=== PATIENT | female | born 1945 | race Caucasian/White ===

== ENCOUNTER 2017-04-23 10:30 | Inpatient (IN) ==
[2017-04-23] MEDS ORDERED: SODIUM CHLORIDE 0.9% 500 ML IV STA ×2 (11:09→12:40)
--- NOTE | 2017-04-23 11:43 | CT Report ---
Referring physician: Bobby Fletcher Exam: CT brain without contrast Date: 04/23/2017 Comparison: 10/16/2016 Reason: Alteration of consciousness Technique: Axial images of the head were obtained without the use of contrast. Total DLP was 1103.60 mGy*cm. Findings: No hydrocephalus or midline shift is present. There is no evidence of an acute infarction, recent intracranial hemorrhage or abnormal mass effect. Diffuse atrophy and cerebral hypodensities with persistent prominent subarachnoid spaces. Empty sella. The osseous structures appear intact. The mastoid air cells and visualized paranasal sinuses are clear. Impression: No acute intracranial abnormality is identified. Diffuse atrophy and microvascular disease with empty sella. The CT exam was performed using one or more of the following dose reduction techniques: Automated exposure control and adjustment of the mA and/or kV according to patient size. PROCEDURE INTERPRETED AT [facility] DEPARTMENT OF RADIOLOGY Final Report Signed by: Dr. Kerri Barbosa
[2017-04-23 11:45] LABS: Basophils # 0.1 10*3/uL (0.0-0.2); Basophils % 1.2 % (0.0-0.8); Eosinophils # 0.2 10*3/uL (0.0-0.87); Eosinophils % 2.8 % (0.00-10.9); Hematocrit 33.5 VOL% (35.7-47.0); Immature Granulocytes % 0.5 %; Immature Granulocytes Absolute 0.04 #; Lymphocytes # 1.4 10*3/uL (1.4-4.0); Mean Corpuscular HGB Conc 32.8 GM/DL (32-36); Mean Corpuscular Hemoglobin 33 PG (27-34); Mean Corpuscular Volume 100.3 FL (87-102); Mean Platelet Volume 10.5 FL (9.6-12.0); Monocytes # 1.2 10*3/uL (0.11-0.8); Monocytes % 16.3 % (1.7-12.7); NRBC # 0.02 10*3/uL; Neutrophils # 4.5 10*3/uL (1.4-7.4); Neutrophils % 60.2 % (38.7-73.9); Red Blood Count 3.34 MC/CUMM (3.8-5.5); Red Cell Distribution Width 22.6 % (9.3-17.3); White Blood Count 7.5 T/CUMM (4-12)
[2017-04-23 11:49] LABS: Platelet Count 93 T/CUMM (130-400)
--- NOTE | 2017-04-23 11:54 | XRay Report ---
Portable chest Date: 04/23/2017 Clinical history: Alteration of consciousness Comparison: 10/18/2016 Technique: Portable AP sitting chest Findings: The heart is smaller in size with uncoiling the aorta. Right arm PICC line with tip in SVC. Reduced parenchymal findings in the lungs with localized eventration of the right hemidiaphragm. Unremarkable mediastinum with degenerative changes. Impression: The heart is smaller in size with resolved CHF. Right arm PICC line in satisfactory position. Localized eventration of the right hemidiaphragm. PROCEDURE INTERPRETED AT [facility] DEPARTMENT OF RADIOLOGY Final Report Signed by: Dr. Kerri Barbosa
[2017-04-23 12:07] LABS: Eosinophils 7 % (0-10); Hypochromasia 1+; Lymphocytes 18 % (20-55); Macrocytosis 1+; Platelet Estimate Decreased; Segmented Neutrophils 62 % (50-85); Total Cells Counted 100
[2017-04-23 12:22] LABS: Alanine Aminotransferase 16 U/L (13-56); Albumin 1.6 G/DL (3.4-5.0); Alkaline Phosphatase 151 U/L (45-117); Apearance,Urine CLOUDY (Clear); Aspartate Amino Transferase 39 U/L (0-37); Bilirubin,Urine Negative (Negative); Blood Urea Nitrogen 37 MG/DL (7-18); Blood, Urine Small mg/dL (Negative); Calcium 9.3 MG/DL (8.5-10.1); Glucose 125 MG/DL (74-106); Glucose,Urine (UA) Negative (Negative); Ketones,Urine Negative (Negative); Magnesium 2.5 MG/DL (1.8-2.4); Nitrite,Urine Negative (Negative); Osmolality,Calculated 284.7 MOS/KG (273-304); Potassium 3.8 MMOL/L (3.5-5.1); Protein,Urine 30 MG/DL; RBC,Urine 6 /HPF (0-4); Sodium 138 MMOL/L (136-145); Squamous Epithelial Cell,Urine Occasional /HPF (0-10); Total Protein 7.6 G/DL (6.4-8.3); Troponin I Only < 0.015 NG/ML (0.00-0.045); Urine Color Yellow (Yellow); Urine Specific Gravity 1.008 (1.001-1.035); Urine Urobilinogen < 2.0 EU/DL (0.2-1.0); WBC,Urine 301 /HPF (0-6)
--- NOTE | 2017-04-23 12:51 | Emergency Department Note ---
Yvon Spencer Manpreet, am scribing for, and in the presence of, Bobby Fletcher MD 11:24. Justine Spencer Phillip K, MD, personally performed the services described in this documentation, ascribed by Josh Sanz in my presence, and it is both accurate and complete . Arrival - Arrival Chief Complaint: Blood Pressure Stated Complaint: HYPOTENSION ED Nursing Triage Note: PT BROUGHT BY EMS FOR EVALUATION OF HYPOTENSION. PT WAS RECENTLY DISCHARGED FROM [facility] AFTER BEING TREATED FOR SEPSIS. PT IS CURRENTLY ON CEFEPIME 2G VIA PICC LINE AT HOME. PT WAS SEPTIC FROM WOUNDS ON BACK/BUTTOCK/ AND LEFT LOWER LEG. PT IS AAO AT TRIAGE. Mode of Arrival: Stretcher Limitations: No Limitations Source: Family Time Seen by Provider: 04/23/17 10:51 - History of Present Illness HPI Narrative: Pt is a 71 y/o female who is brought to the ED via EMS for CC of hypotension. Pt was discharged from [facility] for sepsis three weeks ago where she stayed two weeks for sepsis. Pt was discharged with IV antibiotics for infection on her lower left leg. Pt has been lethargic with a cough but no fever according to the family. Pt is AAOx4 during the physical exam and does not complain of any specific pain. No other pains/complaints reported to the ED. she had been receiving cefepime every 8 hours through a PICC line since discharge from [place] 3 weeks ago. Onset (ago): day(s) (Since 04/19/17) Consistency: constant Severity: moderate Severity scale (1-10): 3 Allergies/Adverse Reactions: Allergies Allergy/AdvReac Type Severity Reaction Status Date / Time Penicillins Allergy HIVES Verified 04/23/17 10:46 sulfamethoxazole Allergy Vomiting Verified 04/23/17 10:46 [From Bactrim] trimethoprim [From Bactrim] Allergy Vomiting Verified 04/23/17 10:46 Home Medications: Home Medications Medication Instructions Recorded Confirmed Type Allopurinol 300 mg PO DAILY 04/23/16 04/23/17 History Budesonide/Formoterol 160-4.5 2 puff INH DAILY PRN 04/23/16 04/23/17 History [Symbicort 160-4.5] Potassium Chloride 20 meq PO DAILY 10/11/16 04/23/17 History Albuterol Sulfate [Ventolin HFA] 2 puff INH Q4H PRN 10/14/16 04/23/17 History Montelukast Tab [Singulair Tab] 10 mg PO BEDTIME tablet 10/17/16 04/23/17 Rx Pantoprazole Tab [Protonix Tab] 40 mg PO DAILY tablet 10/17/16 04/23/17 Rx Metoprolol Tartrate Tab [Lopressor 0.5 mg PO BID 12/23/16 04/23/17 History Tab] Spironolactone [Aldactone] 50 mg PO DAILY 12/23/16 04/23/17 History Albuterol Neb [Proventil Neb] 2.5 mg RESP TX RT Q4H PRN 04/23/17 04/23/17 History Apixaban [Eliquis] 5 mg PO BID 04/23/17 04/23/17 History Cefepime in Iso-Osm Dextrose 2 gm IV BID 04/23/17 04/23/17 History [Cefepime 2 gm Injection] Ciprofloxacin HCl [Ciprofloxacin 500 mg PO BID 04/23/17 04/23/17 History Tab] Diltiazem Cd Cap [Cardizem CD] 120 mg PO QAM 04/23/17 04/23/17 History Furosemide Tab [Lasix Tab] 40 mg PO DAILY 04/23/17 04/23/17 History Insulin Glargine [Lantus] 10 unit SUBCUT QAM 04/23/17 04/23/17 History Insulin Glargine [Lantus] 50 unit SUBCUT BEDTIME 04/23/17 04/23/17 History Lactobacillus Combo No.6 1 each PO DAILY 04/23/17 04/23/17 History [Probiotic Complex] Levothyroxine Tab [Synthroid Tab] 75 mcg PO DAILY 04/23/17 04/23/17 History Zinc Oxide 20% Oint 1 applic TOP QID 04/23/17 04/23/17 History Review of System - Review of System 12 point system: reviewed and no additional remarkable complaints except as stated - Review of System Constitutional: Present: weakness, other (Hypotention). Absent: chills, fever Head/Ears/Nose/Throat: Absent: nasal drainage, sore throat Respiratory: Present: cough. Absent: respiratory distress Cardiovascular: Absent: chest pain, dyspnea on exertion Gastrointestinal: Absent: abdominal pain, nausea, vomiting Musculoskeletal: Absent: back pain, leg pain Neurological: Absent: headache Medical,Surgical,& Family Hx - Medical History Cardio: History of: Cardiac Dysrhythmia (A-FIB) HEENT: History of: Eye Problem (GLASSES), Dental Problems (upper partial) Endocrine: History of: Diabetes Mellitus (IDDM), Thyroid Disorder Rheumatology: History of;: Rheumatoid Arthritis Respiratory: History of: Asthma Gastrointestinal: History of: Hepatitis (C), Liver Problems (CIRRHOSIS) - Surgical History Abdominal Surgeries: Surgical HX of: Cholecystectomy, Hernia Repair - Family History Family History: Reports;: Family Diabetes, Family Heart Disease, Family Hypertension - Social History Smoking Status: Never smoker Frequency of Alcohol Use: None Type of Drug Use: None Exam Vital Signs: Vital Signs Temperature 97.9 F 04/23/17 10:31 Pulse Rate 96 H 04/23/17 10:31 Respiratory Rate 18 04/23/17 10:31 Blood Pressure 82/50 04/23/17 10:31 O2 Sat by Pulse Oximetry 98 04/23/17 10:31 - General General appearance: alert - Head Head exam: Present: atraumatic, normocephalic, normal inspection - Eye Eye exam: Present: normal appearance, PERRL, EOMI - ENT ENT exam: Present: normal exam, normal oropharynx, mucous membranes dry, TM's normal bilaterally - Neck Neck exam: Present: normal inspection, full ROM, trachea midline. Absent: tenderness, thyromegaly - Chest Chest inspection: Present: normal inspection, symmetric chest wall rise. Absent : tenderness - Respiratory Respiratory exam: Present: normal lung sounds bilaterally. Absent: accessory muscle use, respiratory distress, wheezes - Cardiovascular Cardiovascular exam: Present: regular rate, normal rhythm, normal heart sounds. Absent: murmur, rubs, gallop - Abdominal Exam Abdominal exam: Present: soft, other (Ventral hernia) - Extremities Exam Extremities exam: Present: other ([place] that popped on lateral aspect with hemorrhage present). Absent: normal inspection - Back Exam Back exam: Present: normal inspection, full ROM. Absent: tenderness - Neurological Exam Neurological exam: Present: alert, oriented X3, CN II-XII intact, reflexes normal - Psychiatric Psychiatric exam: Present: normal affect, normal mood - Skin Skin exam: Present: warm, dry, intact, normal color. Absent: pallor Course Course Narrative: Patient's urinalysis shows bacteria or white blood cells in clumps. We will give her a fluid bolus to see if that will improve her blood pressure. Her white blood count is normal she is afebrile. According to family members she has had low blood pressure over the last several weeks. Ammonia and lactic acid level is pending. Patient discussed with the hospitalist who will admit for IV antibiotics. We will also consult infectious disease. Results - Labs CBC & BMP: 04/23/17 11:27 04/23/17 11:27 Lab Results: I have reviewed the patients labs Labs: Laboratory Tests 04/23/17 11:27 WBC 7.5 RBC 3.34 L Hgb 11.0 L Hct 33.5 L MCV 100.3 MCH 33 MCHC 32.8 RDW 22.6 H Plt Count 93 L MPV 10.5 Neut % (Auto) 60.2 Lymph % (Auto) 19.0 L Gosper % (Auto) 16.3 H Baso % (Auto) 1.2 H Gosper # (Auto) 1.2 H Laboratory Tests 04/23/17 11:27 Total Counted 100 Segmented Neutrophils 62 Lymphocytes 18 L Monocytes 13 Eosinophils 7 Platelet Estimate Decreased Hypochromasia 1+ Macrocytosis 1+ Laboratory Tests 04/23/17 04/23/17 04/23/17 11:27 11:27 11:27 Total Counted 100 Segmented Neutrophils 62 Lymphocytes 18 L Monocytes 13 Eosinophils 7 Platelet Estimate Decreased Hypochromasia 1+ Macrocytosis 1+ Sodium 138 Potassium 3.8 Chloride 112 H Carbon Dioxide 19 L Anion Gap 10.8 BUN 37 H Creatinine 1.40 H GFR Calculation 49 BUN/Creatinine Ratio 26.00 H Glucose 125 H Calculated Osmolality 284.7 Calcium 9.3 Magnesium 2.5 H Total Bilirubin 1.20 H AST 39 H ALT 16 Alkaline Phosphatase 151 H Troponin I < 0.015 Total Protein 7.6 Albumin 1.6 L Globulin 6.0 H Albumin/Globulin Ratio 0.2 L Urine pH 5.0 Ur Specific [place] 1.008 Urine Protein 30 Urine Glucose (UA) Negative Urine Ketones Negative Urine Nitrate Negative Urine Bilirubin Negative Urine Urobilinogen < 2.0 H Urine Leukocytes Large H Urine RBC 6 Urine WBC 301 - EKG EKG results: interpreted by AGUSTIN (Atrial fibrillation) - Diagnostic Findings Procedure: CT: report reviewed by me (CT Head/Brain w/o con: No acute intracranial abnormality is identified. Diffuse atrophy and microvascular disease with empty sella.), X-ray: report reviewed by me (The heart is smaller in size with resolved CHF. Right arm PICC line in satisfactory position. Localized eventration of the right hemidiaphragm.) Disposition Clinical Impression: Urinary tract infection, Hypotension, History of discitis, History of psoas muscle abscess, Venous stasis ulcer left leg Case discussed with: patient, patient's family Disposition: Still a Patient Condition: Guarded Additional Instructions: Admit to the hospitalist.
--- NOTE | 2017-04-23 13:05 | EKG Report ---
Stationary ECG Study [facility] ER Test Date: 04/23/2017 1:04:01 PM Pat Name: ZANA CASTRO Department: Room: Gender: F [employer]: : 1945 Requested by: Bobby Morse Order Number: [id number] Reading MD: DEAN PAYNE Intervals [place] Rate: 92 P: 999 OR: 0 QRS: 123 QRSD: 71 T: 93 QT: 352 QTc: 401 Interpretive Statements ATRIAL FIBRILLATION POSSIBLE RIGHT VENTRICULAR HYPERTROPHY SEPTAL MYOCARDIAL INFARCTION, PROBABLY OLD Electronically Signed On 04-23-17 20:12:48 CDT by DEAN PAYNE [email or web address]
[2017-04-23 13:17] LABS: Ammonia 52 UMOL/L (11-32)
--- NOTE | 2017-04-23 14:14 | Hospitalist History & Physical ---
<Lanre Chen - Last Filed: 04/23/17 14:36> Assessment and Plan (1) Severe sepsis Status: Acute Assessment and plan: The sepsis bundle has been initiated. The patient clearly meets the sepsis criteria. WBCs are noted at 7.5 and lactic acid at 2.1. In addition, urinalysis significant for UTI. The patient was grossly hypotensive, presented altered, and has an acute kidney injury with the BUN noted at 37 and creatinine at 1.40. We will provide supportive care. Current Visit: Yes (2) Hepatic encephalopathy Status: Acute Assessment and plan: The patient has known hepatic dysfunction. The patient was previously diagnosed with liver cirrhosis and hepatitis C virus. Ammonia level at the time of presentation was noted 52. We will start lactulose and recheck ammonia level in a.m. Current Visit: Yes (3) Hypotension Status: Acute Assessment and plan: At the time of ED presentation the patient was noted to be grossly hypotensive with a systolic blood pressure noted in the 70s. This is largely attributed to the overwhelming infectious process. The patient was given multiple fluid boluses in the ED with minimal response. The patient's blood pressure is now noted in the 80s. We will aggressively rehydrate and order pressors as needed. Current Visit: Yes (4) Urinary tract infection Status: Acute Assessment and plan: Urine cultures have been obtained. We will start empiric antibiotic coverage and await culture and sensitivity report. Current Visit: Yes History of Present Illness Chief complaint: Hypotension and lethargy History of present illness: This is a very pleasant 71-year-old female that presented to the ED at [facility] this morning for the evaluation of hypotension and lethargy. The patient has a very complex medical history significant for asthma , atrial fibrillation, insulin-dependent diabetes mellitus, hypothyroidism, spinal abscess rheumatoid arthritis, asthma, hepatitis C, and liver cirrhosis the patient has a surgical history significant for cholecystectomy and hernia repair. The patient had a previous encounter at [facility] on last month for symptoms similar in nature. During that encounter, the patient was found to have a abscess on spine. The patient was subsequently transferred to the [facility] for further neurosurgery evaluation. The patient was subsequently discharged from [facility] 3 days prior to presentation The patient was discharged with PICC line and intravenous antibiotic therapy. The family noticed that the patient had a decrease in her level of consciousness. They report that the patient had been largely lethargic for the past couple of days. In addition, the patient was noted to have a nonproductive cough. They became alarmed and notified EMS for assistance. The patient was subsequently transported to [facility] for further evaluation. The patient was assessed at the time of ED presentation. The patient was noted to be grossly hypotensive with a systolic blood pressure noted in the 70s. Aggressive intravenous fluids were initiated and the patient's blood pressure responded minimally. Labs were obtained which were essentially remarkable for hemoglobin of 11.0, hematocrit 33.5, platelet count at 93, chloride 112, carbon dioxide 19, troponin at less than 0.015 BUN 37, creatinine 1.40, and glucose at 125. In addition AST was noted at 39, ALT 16, alkaline phosphatase 151, magnesium 2.5, and ammonia at 5.2. Urinalysis was significant for a small amount of blood, urobilinogen less than 2.0, urine leukocytes are large, urine with blood cell count 6, urine white blood cell count 301, moderate amount of white blood cell clumps were noted and occasional squamous epithelial cells were noted. Chest x-ray was essentially unremarkable for any acute cardiopulmonary process. CT head was unremarkable for any acute intracranial processes however, diffuse atrophy and microvascular disease with empty sella was noted. After brief discussion with both Dr. Fletcher and Dr. Moy, the patient will be admitted to the hospitalist service for continuation of care. Due to the profound hypotension, the patient will be placed in the critical care setting. Home medications have been reviewed and reconciled. CODE STATUS discussed; patient is a FULL CODE. The patient meets the sepsis criteria. We will initiate the sepsis. Home Medications Medication Instructions Recorded Confirmed Type Allopurinol 300 mg PO DAILY 04/23/16 04/23/17 History Budesonide/Formoterol 160-4.5 2 puff INH DAILY PRN 04/23/16 04/23/17 History [Symbicort 160-4.5] Potassium Chloride 20 meq PO DAILY 10/11/16 04/23/17 History Albuterol Sulfate [Ventolin HFA] 2 puff INH Q4H PRN 10/14/16 04/23/17 History Montelukast Tab [Singulair Tab] 10 mg PO BEDTIME tablet 10/17/16 04/23/17 Rx Pantoprazole Tab [Protonix Tab] 40 mg PO DAILY tablet 10/17/16 04/23/17 Rx Metoprolol Tartrate Tab [Lopressor 0.5 mg PO BID 12/23/16 04/23/17 History Tab] Spironolactone [Aldactone] 50 mg PO DAILY 12/23/16 04/23/17 History Albuterol Neb [Proventil Neb] 2.5 mg RESP TX RT Q4H PRN 04/23/17 04/23/17 History Apixaban [Eliquis] 5 mg PO BID 04/23/17 04/23/17 History Cefepime in Iso-Osm Dextrose 2 gm IV BID 04/23/17 04/23/17 History [Cefepime 2 gm Injection] Ciprofloxacin HCl [Ciprofloxacin 500 mg PO BID 04/23/17 04/23/17 History Tab] Diltiazem Cd Cap [Cardizem CD] 120 mg PO QAM 04/23/17 04/23/17 History Furosemide Tab [Lasix Tab] 40 mg PO DAILY 04/23/17 04/23/17 History Insulin Glargine [Lantus] 10 unit SUBCUT QAM 04/23/17 04/23/17 History Insulin Glargine [Lantus] 50 unit SUBCUT BEDTIME 04/23/17 04/23/17 History Lactobacillus Combo No.6 1 each PO DAILY 04/23/17 04/23/17 History [Probiotic Complex] Levothyroxine Tab [Synthroid Tab] 75 mcg PO DAILY 04/23/17 04/23/17 History Zinc Oxide 20% Oint 1 applic TOP QID 04/23/17 04/23/17 History Allergies Allergy/AdvReac Type Severity Reaction Status Date / Time Penicillins Allergy HIVES Verified 04/23/17 10:46 sulfamethoxazole Allergy Vomiting Verified 04/23/17 10:46 [From Bactrim] trimethoprim [From Bactrim] Allergy Vomiting Verified 04/23/17 10:46 Medical,Surgical,& Family Hx - Medical History Cardio: History of: Cardiac Dysrhythmia (A-FIB) HEENT: History of: Eye Problem (GLASSES), Dental Problems (upper partial) Endocrine: History of: Diabetes Mellitus (IDDM), Thyroid Disorder Rheumatology: History of;: Rheumatoid Arthritis Respiratory: History of: Asthma Gastrointestinal: History of: Hepatitis (C), Liver Problems (CIRRHOSIS) - Surgical History Abdominal Surgeries: Surgical HX of: Cholecystectomy, Hernia Repair - Family History Family History: Reports;: Family Diabetes, Family Heart Disease, Family Hypertension - Social History Smoking Status: Never smoker Frequency of Alcohol Use: None Type of Drug Use: None Exam - Constitutional Vitals: Period Temp Pulse Resp BP Sys/Eagle Pulse Ox Last 24 Hr 97.9 F-97.9 F 78-96 16-18 79-87/45-58 98-100 General appearance: no acute distress, under weight - Head Head exam: Present: normal inspection - Eye Eye exam: Present: EOMI. Absent: conjunctival injection Pupils: Present: YON, normal accommodation - ENT ENT exam: Present: normal exam, normal external ear exam, normal oropharynx - Neck Neck exam: Present: normal inspection. Absent: lymphadenopathy, meningismus, thyromegaly - Respiratory Respiratory exam: Present: clear to auscultation bilaterally. Absent: rales, rhonchi, stridor, wheezes - Cardiovascular Cardiovascular exam: Present: regular rate and rhythm, tachycardia. Absent: carotid bruit, diastolic murmur, gallop, JVD, rubs, systolic murmur - GI/Abdominal GI/Abdominal exam: Present: normal bowel sounds, soft - Extremities Exam Extremities exam: Present: other (Ulceration noted to the left lower leg) - Neurological Exam Neurological exam: Present: alert, altered - Psychiatric Psychiatric exam: Present: normal affect, normal mood - Skin Skin exam: Present: normal color, warm, dry Results - Labs CBC & BMP: 04/23/17 11:27 04/23/17 11:27 Lab Results: I have reviewed the past 24 hour labs Sepsis - Sepsis Classification of Sepsis: Severe Sepsis - Physical Exam Physical Exam: The patient clearly meets the sepsis criteria. At the time of ED presentation, white blood cell count was noted at 7.5 and lactic acid at 2.1. In addition, the patient was grossly hypotensive with a blood systolic blood pressure noted in the 70s. Urinalysis was essentially significant for urinary tract infection. The patient was clearly altered with an ammonia level noted at 52, total bilirubin at 1.20, AST at 39, ALT 16, and alkaline phosphatase at 151. - Physical Exam Respiratory exam: clear to auscultation bilaterally Peripheral pulses: Radial (L): 2+, Radial (R): 2+, Dorsalis Pedis (L) PM: 2+, Dorsalis Pedis (R) PM: 2+, Posterior Tibialis (L): 2+, Posterior Tibialis (R): 2 + Cardiovascular exam: bradycardia Skin exam: normal color <MoyJarvis - Last Filed: 04/23/17 15:00> History of Present Illness History of present illness: Ms. Miller is a 71 year old female who is being hospitalized with urinary tract infection, sepsis with shock, and hepatic insufficiency. I have interviewed the patient, examined the patient, and reviewed all the available laboratory tests and x-ray results. Agree with the assessment and plans as described by the nurse practitioner. Exam - Constitutional Vitals: Period Temp Pulse Resp BP Sys/Eagle Pulse Ox Last 24 Hr 97.9 F-97.9 F 78-97 16-18 76-87/44-58 98-100 Results - Labs CBC & BMP: 04/23/17 11:27 04/23/17 11:27
[2017-04-23] MEDS ORDERED: SODIUM CHLORIDE 0.9% 3,750 ML IV ONE (14:37)
[2017-04-23] MEDS ORDERED: DEXTROSE 50% 25 GM/50 ML SYRINGE IV PRN (14:45)
[2017-04-23] MEDS ORDERED: GLUCAGON 1 MG VIAL IM PRN (14:45)
[2017-04-23] MEDS ORDERED: LEVOFLOXACIN INJ 500 MG in PREMIX 1 EACH IV SCH (15:00)
[2017-04-23] MEDS: LACTULOSE 20 GM/30 ML UDCUP PO SCH ×2 (16:00→22:48)
--- NOTE | 2017-04-23 16:09 | General Surgery Consult Note ---
Assessment and Plan - Time spent with patient Time spent with patient: Greater than 30 minutes (1) Chronic anticoagulation Status: Acute Current Visit: Yes (2) Venous stasis ulcer Status: Acute Assessment and plan: 71-year-old white female with history of asthma, A. fib on chronic anticoagulation, diabetes, hypothyroidism, RA, hepatitis C, liver cirrhosis, and spinal abscess admitted by the hospitalist today with sepsis due to UTI. Patient does have a PICC line and has been getting cefepime 3 times daily for a recent spinal abscess treated at [facility]. Dr. Kern has been consulted to assist with this. Levaquin was started for her UTI but in her hospital records cultures in March for her urine were resistant to Cipro and Levaquin. So DC'd the Levaquin and restarted her cefepime which should work for UTI as well as her spinal abscess. Patient is also having difficulty swallowing so will consult Dr. Whittaker in the morning for evaluation for dysphagia. Patient does have a small venous stasis wound on her left lower extremity that is clean and without signs of infection. There is no indication for surgery. Will get Isadora MONTEMAYOR to evaluate and patient can follow-up with Dr. Kumar Loyola in the wound center upon discharge. Dr. Longo will see and examine patient and further recommendations to follow. Current Visit: Yes (3) History of spinal abscess Status: Acute Current Visit: Yes (4) Atrial fibrillation Status: Acute Current Visit: No (5) Urinary tract infection Status: Acute Current Visit: Yes (6) Hypotension Status: Acute Current Visit: Yes (7) Severe sepsis Status: Acute Current Visit: Yes History of Present Illness Chief complaint: Confusion History of present illness: Ms. Miller is a 71 year old white female with history of A. fib on Eliquis, COPD, diabetes, and questionable spinal abscess admitted by the hospitalist service on 04/23/2017 with altered mental status due to urinary tract infection. Patient is afebrile but she is found to be hypotensive and failed her ED fluid challenge. She is in the ICU placed on sepsis protocol. Patient states she had just been recently discharged from [facility] under the care of a neurosurgeon with a spinal abscess. Patient states they did a biopsy of the bone and there was infection in her bone. She has been on cefepime 2G TID for 3 weeks now. She states she became weak and confused and she was brought to the ED for further evaluation. Patient's only complaint right now is chills. She denies headache, chest pain, shortness of breath, abdominal pain, constipation or diarrhea, or lower extremity edema. Patient states she has had some difficulty swallowing for the last few weeks. It has made it difficult to eat. Patient follows Dr. Kumar Loyola in the wound center for lower extremity venous wounds. Upon exam she has a small 2 cm diameter open venous wound on the lateral lower leg. There is no signs of infection and no drainage. The rest of the legs have healed up nicely. Dr. Longo has been consulted to evaluate. Home Medications Medication Instructions Recorded Confirmed Type Allopurinol 300 mg PO DAILY 04/23/16 04/23/17 History Potassium Chloride 20 meq PO DAILY 10/11/16 04/23/17 History Montelukast Tab [Singulair Tab] 10 mg PO BEDTIME tablet 10/17/16 04/23/17 Rx Pantoprazole Tab [Protonix Tab] 40 mg PO DAILY tablet 10/17/16 04/23/17 Rx Metoprolol Tartrate Tab [Lopressor 0.5 tablet PO BID 12/23/16 04/23/17 History Tab] Spironolactone [Aldactone] 50 mg PO DAILY 12/23/16 04/23/17 History Apixaban [Eliquis] 5 mg PO BID 04/23/17 04/23/17 History Cefepime in Iso-Osm Dextrose 2 gm IV TID 04/23/17 04/23/17 History [Cefepime 2 gm Injection] Diltiazem Cd Cap [Cardizem CD] 120 mg PO QAM 04/23/17 04/23/17 History Furosemide Tab [Lasix Tab] 40 mg PO BID 04/23/17 04/23/17 History Insulin Glargine [Lantus] 10 unit SUBCUT QAM 04/23/17 04/23/17 History Insulin Glargine [Lantus] 50 unit SUBCUT BEDTIME 04/23/17 04/23/17 History Lactobacillus Combo No.6 1 each PO DAILY 04/23/17 04/23/17 History [Probiotic Complex] Levothyroxine Tab [Synthroid Tab] 75 mcg PO DAILY 04/23/17 04/23/17 History Allergies Allergy/AdvReac Type Severity Reaction Status Date / Time Penicillins Allergy HIVES Verified 04/23/17 10:46 sulfamethoxazole Allergy Vomiting Verified 04/23/17 10:46 [From Bactrim] trimethoprim [From Bactrim] Allergy Vomiting Verified 04/23/17 10:46 Medical,Surgical,& Family Hx - Medical History Cardio: History of: Cardiac Dysrhythmia (A-FIB) HEENT: History of: Eye Problem (GLASSES), Dental Problems (upper partial) Endocrine: History of: Diabetes Mellitus (IDDM), Thyroid Disorder Rheumatology: History of;: Rheumatoid Arthritis Respiratory: History of: Asthma Renal: History of: Renal Problems (renal insufficiency, sees Dr Damon) Gastrointestinal: History of: Hepatitis (C), Liver Problems (CIRRHOSIS) Musculoskeletal: History of: Musculoskeletal Problems ("bad knees") Hematology: History of: Anemia - Surgical History Abdominal Surgeries: Surgical HX of: Cholecystectomy, Hernia Repair Reproductive Surgeries: Surgical HX of;: Hysterectomy - Family History Family History: Reports;: Family Diabetes, Family Heart Disease, Family Hypertension - Social History Smoking Status: Never smoker Frequency of Alcohol Use: None Type of Drug Use: None Review of systems: A complete 10 system review of systems was obtained and pertinent positives and negatives per HPI Exam - Constitutional Vitals: Period Temp Pulse Resp BP Sys/Eagle Pulse Ox Last 24 Hr 97.9 F-97.9 F 78-97 16-18 76-87/44-58 98-100 Exam: 71-year-old white female, no acute distress, alert and oriented Chest clear CV irregularly irregular Abdomen soft, nontender, obese Extremities with no edema, well-healed bilateral lower extremity venous ulcers, one small 2 cm diameter open wound on the lateral lower leg, no induration, purulence, no cellulitis Results - Labs CBC & BMP: 04/23/17 11:27 04/23/17 11:27 Lab Results: I have reviewed the past 24 hour labs - EKG EKG shows: atrial fibrillation - Diagnostic Findings Procedure: Chest x-ray: report reviewed by me (Resolved CHF, right arm PICC in satisfactory position), CT: report reviewed by me (CT the head shows no acute intracranial abnormality. Diffuse atrophy and microvascular disease)
[2017-04-23] MEDS: SODIUM CHLORIDE 0.9% 1,000 ML IV SCH (16:13)
--- NOTE | 2017-04-23 16:25 | Infectious Disease Consult ---
History of Present Illness Chief complaint: Sepsis History of present illness: Ms. Miller is a 71 year old female with multiple comorbid including chronic liver disease due to hepatitis C apparently. She was recently in [facility] because of a paraspinal abscess and was sent home 3 days ago on IV cefepime 2 g every 8 hours. Apparently she been sent to [facility] from this institution in March and in looking through the records she had positive blood cultures for Pseudomonas in March so presumably the spinal infection is due to the same Pseudomonas. The patient was found confused by her family and so she was brought to the hospital. She was found to be severely hypotensive with systolic blood pressure in the 70s and so admitted to ICU for further management. Per nurse patient's family says a systolic has been in the 70s and 80s since she has been at home. No fever reported. Impression: 1. Hypotensive shock, could be septic versus hypoperfusion related to her liver disease 2. Renal insufficiency, acute versus acute on chronic 3. Paraspinal abscess, records not available for me to confirm location 4. Liver disease 5. Chronic venous insufficiency with chronic ulcers to left leg which are clinically not infected Recommendations: 1. Give 1 dose of vancomycin 1 g IV 2. Continue cefepime as patient was getting at home. She is on levofloxacin but I am not sure how much benefit this will be as the Pseudomonas was resistant to this, but will leave for now 3. Follow-up results of cultures are pending 4. Obtain records from [facility] 5. Depending on cultures and renal function will decide whether or not to repeat dosing of vancomycin Thank you very much for the consult. Will follow. Home Medications Medication Instructions Recorded Confirmed Type Allopurinol 300 mg PO DAILY 04/23/16 04/23/17 History Potassium Chloride 20 meq PO DAILY 10/11/16 04/23/17 History Montelukast Tab [Singulair Tab] 10 mg PO BEDTIME tablet 10/17/16 04/23/17 Rx Pantoprazole Tab [Protonix Tab] 40 mg PO DAILY tablet 10/17/16 04/23/17 Rx Metoprolol Tartrate Tab [Lopressor 0.5 tablet PO BID 12/23/16 04/23/17 History Tab] Spironolactone [Aldactone] 50 mg PO DAILY 12/23/16 04/23/17 History Apixaban [Eliquis] 5 mg PO BID 04/23/17 04/23/17 History Cefepime in Iso-Osm Dextrose 2 gm IV TID 04/23/17 04/23/17 History [Cefepime 2 gm Injection] Diltiazem Cd Cap [Cardizem CD] 120 mg PO QAM 04/23/17 04/23/17 History Furosemide Tab [Lasix Tab] 40 mg PO BID 04/23/17 04/23/17 History Insulin Glargine [Lantus] 10 unit SUBCUT QAM 04/23/17 04/23/17 History Insulin Glargine [Lantus] 50 unit SUBCUT BEDTIME 04/23/17 04/23/17 History Lactobacillus Combo No.6 1 each PO DAILY 04/23/17 04/23/17 History [Probiotic Complex] Levothyroxine Tab [Synthroid Tab] 75 mcg PO DAILY 04/23/17 04/23/17 History Allergies Allergy/AdvReac Type Severity Reaction Status Date / Time Penicillins Allergy HIVES Verified 04/23/17 10:46 sulfamethoxazole Allergy Vomiting Verified 04/23/17 10:46 [From Bactrim] trimethoprim [From Bactrim] Allergy Vomiting Verified 04/23/17 10:46 ROS unobtainable: due to mental status Medical,Surgical,& Family Hx - Medical History Cardio: History of: Cardiac Dysrhythmia (A-FIB) HEENT: History of: Eye Problem (GLASSES), Dental Problems (upper partial) Endocrine: History of: Diabetes Mellitus (IDDM), Thyroid Disorder Rheumatology: History of;: Rheumatoid Arthritis Respiratory: History of: Asthma Renal: History of: Renal Problems (renal insufficiency, sees Dr Damon) Gastrointestinal: History of: Hepatitis (C), Liver Problems (CIRRHOSIS) Musculoskeletal: History of: Musculoskeletal Problems ("bad knees") Hematology: History of: Anemia - Surgical History Abdominal Surgeries: Surgical HX of: Cholecystectomy, Hernia Repair Reproductive Surgeries: Surgical HX of;: Hysterectomy - Family History Family History: Reports;: Family Diabetes, Family Heart Disease, Family Hypertension - Social History Smoking Status: Never smoker Frequency of Alcohol Use: None Type of Drug Use: None Infectious Disease Exam H&P - Constitutional Vitals: Vital Signs Temp Pulse Resp BP Pulse Ox 97.9 F 87 18 77/49 100 04/23/17 10:31 04/23/17 14:10 04/23/17 14:10 04/23/17 14:10 04/23/17 14:10 Intake and Output 04/23/17 04/23/17 04/23/17 07:59 15:59 23:59 Intake Total 1250 / 1250 Balance 1250 / 1250 Intake: IV 1000 / 1000 Ns 500 ml @ 999 mls/hr IV 1000 / 1000 1X ED BOLUS STA Rx#: [id number] Intake - Additional IV 250 / 250 Volume (mLs) Right Upper Arm 250 / 250 Other: Weight 87.345 kg Patient Weight 04/23/17 23:59 Weight 87.345 kg Exam: General: Patient chronically ill looking, drowsy but arousable HEENT: Mucous membranes pale, anicteric acyanotic, YON, no oral exudates, mouth dry Neck: Supple, no thyroid gland enlargement, no lymphadenopathy Respiratory system: Breath sounds vesicular, no crepitations or wheezes Cardiovascular: Normal S1 and S2, no murmurs appreciated Abdomen: Normal bowel sounds, soft nontender throughout, no organomegaly or mass Genitourinary: No suprapubic pain or bladder distention, clear urine from Bonilla catheter Extremities: Chronic bilateral lower extremity edema with hyperpigmentation of the skin and one bottle appearance of the left leg edema Skin: 2 shallow ulcers to the left lateral leg distally with clean granulating bases no purulent drainage no surrounding erythema or induration Reports - Labs CBC & BMP: 04/23/17 11:27 04/23/17 11:27 Labs: Laboratory Results - last 24 hr 04/23/17 04/23/17 04/23/17 11:27 11:27 11:27 WBC 7.5 RBC 3.34 L Hgb 11.0 L Hct 33.5 L MCV 100.3 MCH 33 MCHC 32.8 RDW 22.6 H Plt Count 93 L MPV 10.5 Neut % (Auto) 60.2 Lymph % (Auto) 19.0 L [place] % (Auto) 16.3 H Eos % (Auto) 2.8 Baso % (Auto) 1.2 H Neut # (Auto) 4.5 Lymph # (Auto) 1.4 [place] # (Auto) 1.2 H Eos # (Auto) 0.2 Baso # (Auto) 0.1 Total Counted 100 Immature Gran % 0.5 Nucleated RBC % 0.3 Immature Gran # 0.04 Segmented Neutrophils 62 Lymphocytes 18 L Monocytes 13 Eosinophils 7 Nucleated RBCs # 0.02 Platelet Estimate Decreased Immature Plt Fraction 0.0 Hypochromasia 1+ Macrocytosis 1+ Morphology Comment Sodium 138 Potassium 3.8 Chloride 112 H Carbon Dioxide 19 L Anion Gap 10.8 BUN 37 H Creatinine 1.40 H GFR Calculation 49 BUN/Creatinine Ratio 26.00 H Glucose 125 H Hemoglobin A1c Calculated Osmolality 284.7 Lactic Acid Calcium 9.3 Magnesium 2.5 H Total Bilirubin 1.20 H AST 39 H ALT 16 Alkaline Phosphatase 151 H Ammonia 52 H Troponin I < 0.015 Total Protein 7.6 Albumin 1.6 L Globulin 6.0 H Albumin/Globulin Ratio 0.2 L Urine Color Yellow Urine Appearance Cloudy Urine pH 5.0 Ur Specific [place] 1.008 Urine Protein 30 Urine Glucose (UA) Negative Urine Ketones Negative Urine Blood Small Urine Nitrate Negative Urine Bilirubin Negative Urine Urobilinogen < 2.0 H Urine Leukocytes Large H Urine RBC 6 Urine WBC 301 Urine WBC Clumps Moderate Ur Squamous Epith Cells Occasional Ur Culture Indicated? Results to follow 04/23/17 04/23/17 04/23/17 11:27 11:27 14:49 WBC RBC Hgb Hct MCV MCH MCHC RDW Plt Count MPV Neut % (Auto) Lymph % (Auto) [place] % (Auto) Eos % (Auto) Baso % (Auto) Neut # (Auto) Lymph # (Auto) [place] # (Auto) Eos # (Auto) Baso # (Auto) Total Counted Immature Gran % Nucleated RBC % Immature Gran # Segmented Neutrophils Lymphocytes Monocytes Eosinophils Nucleated RBCs # Platelet Estimate Immature Plt Fraction Hypochromasia Macrocytosis Morphology Comment Sodium Potassium Chloride Carbon Dioxide Anion Gap BUN Creatinine GFR Calculation BUN/Creatinine Ratio Glucose Hemoglobin A1c 4.7 Calculated Osmolality Lactic Acid 2.1 H 2.1 H Calcium Magnesium Total Bilirubin AST ALT Alkaline Phosphatase Ammonia Troponin I Total Protein Albumin Globulin Albumin/Globulin Ratio Urine Color Urine Appearance Urine pH Ur Specific [place] Urine Protein Urine Glucose (UA) Urine Ketones Urine Blood Urine Nitrate Urine Bilirubin Urine Urobilinogen Urine Leukocytes Urine RBC Urine WBC Urine WBC Clumps Ur Squamous Epith Cells Ur Culture Indicated? - Diagnostic Findings Procedure: Chest x-ray: image reviewed by me, report reviewed by me (No infiltrates or effusions)
[2017-04-23] MEDS ORDERED: VANCOMYCIN INJ 1,000 MG in SODIUM CHLORIDE 0.9% 250 ML IV ONE (17:00)
[2017-04-23] MEDS: NOREPINEPHRINE 8 MG in SODIUM CHLORIDE 0.9% 242 ML IV SCH (17:23)
[2017-04-23] MEDS: INSULIN REGULAR 100 UNIT/ML SUBCUT SCH ×2 (17:28→22:36)
--- NOTE | 2017-04-23 19:46 | ECHO Report ---
Suzi Miller Exam Date: 04/23/2017 14:56 Referring Physician: Technologist: ivon Frank ARDMS, RVT Age: 71 Ht (in): 63 Wt (lb): 276 Gender: F Exam Location: [facility] [place] Echo Indications: Atrial fibrillation, Hypotension, Severe sepsis, Hepatic encephalopathy, UTI BP: 77 / 49 HR: 83 Rhythm: Sinus Technical Quality: Fair IMPRESSIONS 1. The left ventricle is normal size and systolic function ejection fraction 60%. 2. Other cardiac chambers are normal size. 3. There appears to be some slight intraventricular septal flattening. 4. Aortic valve to try constructed but sclerotic but functionally normal without any Doppler abnormalities. 5. Moderate to severe tricuspid valve regurgitation. 6. Mild elevated right-sided pressures at worst. MEASUREMENTS (Male / Female) Normal Values 2D ECHO LV Diastolic Diameter PLAX 3.4 cm 4.2 - 5.9 / 3.9 - 5.3 cm LV Systolic Diameter PLAX 1.9 cm LV Fractional Shortening PLAX 43.8 % IVS Diastolic Thickness 0.7 cm 0.6 - 1.0 / 0.6 - 0.9 cm LVPW Diastolic Thickness 0.8 cm 0.6 - 1.0 / 0.6 - 0.9 cm RV Internal Dim ED PLAX 3.2 cm Aortic Root Diameter 3.0 cm LA Systolic Diameter LX 3.4 cm 3.0 - 4.0 / 2.7 - 3.8 cm DOPPLER TR Peak Velocity 274.0 cm/s TR Peak Gradient 30.0 mmHg FINDINGS Left Ventricle Normal left ventricular cavity size. Normal left ventricular wall thickness. Left ventricular ejection fraction is estimated at 60 %. Right Ventricle The right ventricle is normal in size and function. Right Atrium The right atrium is normal in size. Left Atrium The left atrium is normal in size. Mitral Valve Morphologically normal mitral valve without significant stenosis or prolapse. There is no mitral regurgitation. Aortic Valve Aortic valve is atretic obstructed with sclerosing especially the noncoronary cusp but is without stenosis. There is no aortic regurgitation. Tricuspid Valve Morphologically normal tricuspid valve. Moderate to severe tricuspid valve regurgitation. Tricuspid regurgitation velocities suggest a PAP of 40 mmHg. Pulmonic Valve Morphologically normal pulmonic valve without significant stenosis. There is no pulmonic regurgitation. Pericardium Normal pericardium without effusion. Aorta Normal ascending aorta dimension. Cam Strong MD (Electronically Signed) Final Date: 23 April 2017 19:44
[2017-04-23] MEDS ORDERED: CEFEPIME IN ISO OSM DEXTROSE IV SCH (21:00)
[2017-04-23] MEDS ORDERED: [UNRECOGNIZED DRUG - OTHER] IV SCH (21:00)
[2017-04-23] MEDS: CEFEPIME 2,000 MG in SODIUM CHLORIDE 0.9% 100 ML IV SCH (22:48)
[2017-04-24] MEDS: SODIUM CHLORIDE 0.9% 1,000 ML IV SCH ×4 (00:50→20:30)
[2017-04-24 03:27] LABS: ABG Base Excess -14.1 MMOL/L (-2.5-2.5); ABG HCO3 13.7 MMOL/L (20-26); ABG Oxygen Saturation 98.9 % (95-100); ABG PCO2 28.6 MM HG (35-48); ABG PH 7.239 (7.35-7.45); ABG TCO2 11.1 MMOL/L (23-27); Allen Test Positive
[2017-04-24] MEDS: LACTULOSE 20 GM/30 ML UDCUP PO SCH ×4 (04:26→21:51)
[2017-04-24] MEDS: CEFEPIME 2,000 MG in SODIUM CHLORIDE 0.9% 100 ML IV SCH ×3 (04:27→21:51)
[2017-04-24 04:33] LABS: Calcium 8.2 MG/DL (8.5-10.1); Magnesium 2.3 MG/DL (1.8-2.4)
[2017-04-24 04:34] LABS: Osmolality,Calculated 291.1 MOS/KG (273-304); Potassium 4.2 MMOL/L (3.5-5.1)
[2017-04-24 07:46] LABS: Basophils # 0.1 10*3/uL (0.0-0.2); Basophils % 1.1 % (0.0-0.8); Eosinophils # 0.2 10*3/uL (0.0-0.87); Eosinophils % 1.9 % (0.00-10.9); Hematocrit 36.8 VOL% (35.7-47.0); Hemoglobin 11.8 GM/DL (12.0-16.0); Immature Granulocytes % 1.1 %; Immature Granulocytes Absolute 0.12 #; Lymphocytes # 1.3 10*3/uL (1.4-4.0); Lymphocytes % 11.8 % (21.3-54.2); Mean Corpuscular HGB Conc 32.1 GM/DL (32-36); Mean Corpuscular Hemoglobin 33 PG (27-34); Mean Corpuscular Volume 103.4 FL (87-102); Mean Platelet Volume 9.8 FL (9.6-12.0); Monocytes # 1.6 10*3/uL (0.11-0.8); Monocytes % 14.6 % (1.7-12.7); NRBC # 0.02 10*3/uL; Neutrophils # 7.6 10*3/uL (1.4-7.4); Neutrophils % 69.5 % (38.7-73.9); Platelet Count 121 T/CUMM (130-400); Red Blood Count 3.56 MC/CUMM (3.8-5.5); Red Cell Distribution Width 22.8 % (9.3-17.3); White Blood Count 10.9 T/CUMM (4-12)
--- NOTE | 2017-04-24 07:47 | Hospitalist Progress Note ---
Assessment and Plan (1) Urinary tract infection Status: Acute Assessment and plan: She was diagnosed on admission with a urinary tract infection. It was the impression of infectious diseases that the most likely organism was Pseudomonas due to previous cultures during her previous hospitalization demonstrating Pseudomonas infection. She has been continued on intravenous cefepime as per infectious diseases. Current Visit: Yes (2) Severe sepsis Status: Acute Assessment and plan: She has severe sepsis with shock. She is requiring intravenous norepinephrine in addition to fluid resuscitation for management of her shock. She continues on intravenous cefepime and vancomycin as per ID. Current Visit: Yes (3) Venous stasis ulcer Status: Acute Assessment and plan: Her venous stasis ulcers do not appear to be actively infected at the present time. Current Visit: Yes (4) History of spinal abscess Status: Acute Current Visit: Yes (5) Renal insufficiency Status: Acute Assessment and plan: It is not clear if she has acute versus acute on chronic renal insufficiency. She is being treated with intravenous normal saline. I will follow her renal function closely. Current Visit: Yes Hospitalist: Subjective Interval history: Ms. Miller is a 71 year old female with multiple comorbid including chronic liver disease due to hepatitis C apparently. She was recently in [facility] because of a paraspinal abscess and was sent home 3 days ago on IV cefepime 2 g every 8 hours. Apparently she been sent to [facility] from this institution in March and in looking through the records she had positive blood cultures for Pseudomonas in March so presumably the spinal infection is due to the same Pseudomonas. The patient was found confused by her family and so she was brought to the hospital. She was found to be severely hypotensive with systolic blood pressure in the 70s and so admitted to ICU for further management. She was seen in consultation yesterday by infectious diseases who recommended treatment at the present time with intravenous cefepime and vancomycin. An echocardiogram was performed demonstrating no evidence of bacterial endocarditis , normal left ventricular systolic function with LVEF 60%, and moderate to severe tricuspid insufficiency. I will continue her on the antibiotics as recommended by infectious diseases. I await further recommendations from ID. Exam - Constitutional Vitals: Period Temp Pulse Resp BP Sys/Eagle Pulse Ox Last 24 Hr 97.9 F-99.3 F 75-112 11-20 60-114/30-88 97-100 General appearance: no acute distress - Head Head exam: Present: normal inspection - Neck Neck exam: Present: normal inspection - Respiratory Respiratory exam: Present: clear to auscultation bilaterally - Cardiovascular Cardiovascular exam: Present: regular rate and rhythm - GI/Abdominal GI/Abdominal exam: Present: normal bowel sounds, soft, other - Extremities Exam Extremities exam: Present: normal inspection - Neurological Exam Neurological exam: Present: alert, oriented X3 - Skin Skin exam: Present: normal color, warm, intact Results - Labs CBC & BMP: 04/23/17 11:27 04/24/17 03:05
[2017-04-24 08:05] LABS: Hypochromasia 1+; Macrocytosis 1+
[2017-04-24 08:06] LABS: Platelet Estimate Adequate
[2017-04-24] MEDS: INSULIN REGULAR 100 UNIT/ML SUBCUT SCH ×4 (08:15→21:51)
[2017-04-24 08:57] LABS: Albumin 1.5 G/DL (3.4-5.0); Bilirubin,Total 1.3 MG/DL (0.2-1.0); Calcium 7.8 MG/DL (8.5-10.1); Osmolality,Calculated 292.1 MOS/KG (273-304); Potassium 4.1 MMOL/L (3.5-5.1)
[2017-04-24] MEDS: ALBUTEROL/IPRATROPIUM 3 ML NEB RESP TX SCH ×3 (09:14→19:36)
--- NOTE | 2017-04-24 11:42 | Gastrointestinal Consult Note ---
<Anna Luong - Last Filed: 04/24/17 11:34> Assessment and Plan (1) Dysphagia Status: Acute Assessment and plan: 04/24-Reports on yesterday of "food sticking" with meals. No reports of this today however pt noted to be lethargic. No known history of EGD in the past. On Eliquis prior to admission, currently on hold. Plan and addendum to follow by Dr Lozoya Current Visit: Yes History of Present Illness Chief complaint: Dysphagia History of present illness: Ms. Miller is a 71 year old female who was admitted to the hospital on yesterday with report of changes in mental status and low blood pressure. She has a prior history of asthma, atrial fibrillation on Eliqu, diabetes and hypothyroidism. Patient is unable to provide any historical information at this time due to lethargy therefore information is obtained from chart review. Patient was admitted on yesterday after family noticed that she had a decrease in her level of consciousness. She reportedly had become more lethargic over the couple of days prior to that and he developed a nonproductive cough. Family called an ambulance and she is brought to the emergency room for further evaluation. Upon arrival she was found to be hypotensive and was fluid resuscitated with minimal response from her blood pressure. She was then placed in ICU and had pressor support initiated. Patient has a prior history of liver disease from hepatitis C. She also reportedly has a recent history of paraspinal abscess which was treated at [facility] and she was discharged several days ago on IV antibiotics for this. On admission, she had a CT of her head which was unremarkable. She was found to have no leukocytosis with WBCs at 10,000. LFTs on admission noted at 1.3 bilirubin, AST 47, and alkaline phosphatase at 151. On yesterday, patiently reported that she has had increased difficulty in swallowing and feels like food is getting stuck in her throat. Because patient is very lethargic during my visit, she was unable to relate this to me and denies at this time having problem swallowing. Nursing staff at bedside states she was able to swallow her liquids and pills without difficulty. Pt has no prior history in our facility database for endoscopy in the past however she had appt in December of this year but no records that the EGD was done. She has been followed by Dr Lozoya for her cirrhosis. Home Medications Medication Instructions Recorded Confirmed Type Allopurinol 300 mg PO DAILY 04/23/16 04/23/17 History Potassium Chloride 20 meq PO DAILY 10/11/16 04/23/17 History Montelukast Tab [Singulair Tab] 10 mg PO BEDTIME tablet 10/17/16 04/23/17 Rx Pantoprazole Tab [Protonix Tab] 40 mg PO DAILY tablet 10/17/16 04/23/17 Rx Metoprolol Tartrate Tab [Lopressor 0.5 tablet PO BID 12/23/16 04/23/17 History Tab] Spironolactone [Aldactone] 50 mg PO DAILY 12/23/16 04/23/17 History Apixaban [Eliquis] 5 mg PO BID 04/23/17 04/23/17 History Cefepime in Iso-Osm Dextrose 2 gm IV TID 04/23/17 04/23/17 History [Cefepime 2 gm Injection] Diltiazem Cd Cap [Cardizem CD] 120 mg PO QAM 04/23/17 04/23/17 History Furosemide Tab [Lasix Tab] 40 mg PO BID 04/23/17 04/23/17 History Insulin Glargine [Lantus] 10 unit SUBCUT QAM 04/23/17 04/23/17 History Insulin Glargine [Lantus] 50 unit SUBCUT BEDTIME 04/23/17 04/23/17 History Lactobacillus Combo No.6 1 each PO DAILY 04/23/17 04/23/17 History [Probiotic Complex] Levothyroxine Tab [Synthroid Tab] 75 mcg PO DAILY 04/23/17 04/23/17 History Allergies Allergy/AdvReac Type Severity Reaction Status Date / Time Penicillins Allergy HIVES Verified 04/23/17 10:46 sulfamethoxazole Allergy Vomiting Verified 04/23/17 10:46 [From Bactrim] trimethoprim [From Bactrim] Allergy Vomiting Verified 04/23/17 10:46 Medical,Surgical,& Family Hx - Medical History Cardio: History of: Cardiac Dysrhythmia (A-FIB) HEENT: History of: Eye Problem (GLASSES), Dental Problems (upper partial) Endocrine: History of: Diabetes Mellitus (IDDM), Thyroid Disorder Rheumatology: History of;: Rheumatoid Arthritis Respiratory: History of: Asthma Renal: History of: Renal Problems (renal insufficiency, sees Dr Damon) Gastrointestinal: History of: Hepatitis (C), Liver Problems (CIRRHOSIS) Musculoskeletal: History of: Musculoskeletal Problems ("bad knees") Hematology: History of: Anemia - Surgical History Abdominal Surgeries: Surgical HX of: Cholecystectomy, Hernia Repair Reproductive Surgeries: Surgical HX of;: Hysterectomy - Family History Family History: Reports;: Family Diabetes, Family Heart Disease, Family Hypertension - Social History Smoking Status: Never smoker Frequency of Alcohol Use: None Type of Drug Use: None ROS unobtainable: due to mental status Exam - Constitutional Vitals: Period Temp Pulse Resp BP Sys/Eagle Pulse Ox Last 24 Hr 97.9 F-99.3 F 75-122 11- 60-114/30- 97-100 General appearance: normal weight, no acute distress - Head Head exam: Present: normal inspection, normocephalic - Eye Eye exam: Present: other (lids and conjunctiva unremarkable). Absent: scleral icterus - ENT ENT exam: Present: normal exam, normal oropharynx - Neck Neck exam: Present: normal inspection - Respiratory Respiratory exam: Present: clear to auscultation bilaterally. Absent: rales, rhonchi, wheezes - Cardiovascular Cardiovascular exam: Present: regular rate and rhythm. Absent: diastolic murmur , JVD, systolic murmur - GI/Abdominal GI/Abdominal exam: Present: normal bowel sounds, soft. Absent: ascites, distended, mass, organomegaly, tenderness - Extremities Exam Extremities exam: Present: normal inspection, full ROM - Back Exam Back exam: Present: normal inspection - Neurological Exam Neurological exam: Present: alert, altered - Psychiatric Psychiatric exam: Present: normal affect, other - Skin Skin exam: Present: normal color, warm, dry Results - Labs CBC & BMP: 04/24/17 07:24 04/24/17 07:24 Lab Results: I have reviewed the past 24 hour labs <Vel Lozoya - Last Filed: 04/24/17 14:20> History of Present Illness History of present illness: Ms. Miller is a 71 year old female Exam - Constitutional Vitals: Period Temp Pulse Resp BP Sys/Eagle Pulse Ox Last 24 Hr 97.4 F-99.3 F 75-122 - 60-114/30-88 96-100 Results - Labs CBC & BMP: 04/24/17 07:24 04/24/17 07:24
--- NOTE | 2017-04-24 11:58 | Infectious Disease Progress ---
Assessment and Plan (1) History of spinal abscess Status: Acute Assessment and plan: Most likely due to Pseudomonas which was isolated from her blood cultures last mth. Continue cefepime high dose. We still need to get records from [facility]. I would prefer double coverage with an A. glycoside but she was seen by ID at [facility]. (The Pseudomonas was resistant to quinolones). D/W family at bedside Current Visit: Yes (2) Hypotension Status: Acute Assessment and plan: Possibly due to septic shock, improved today. She is still on pressors and will continue antibiotics. Current Visit: Yes (3) Renal insufficiency Status: Acute Assessment and plan: Stable since yesterday, even after a dose of vancomycin. Current Visit: Yes (4) Severe sepsis Status: Acute Assessment and plan: have not identified specific new infection yet. I am going to consult pharmacy to redose vanc. Continue cefepime and levofloxacin for now. If blood cultures negative at day 3, will stop levofloxacin and vancomycin. Current Visit: Yes (5) Venous stasis ulcer Status: Acute Current Visit: Yes (6) Bacteremia Status: Acute Assessment and plan: Last mth had Pseudomonas septicemia. Rechecking blood cultures now to ensure no recurrence/relapse. Current Visit: No Infectious Disease - PN: Subj Interval history: Patient did not respond to IVF last pm so had to be started on pressors, however that is being weaned steadily today. No fever. She is more alert and interactive today. Infectious Disease Exam (PN) - Constitutional Vitals: Temp Pulse Resp BP Pulse Ox 98 F 113 H 24 97/52 96 04/24/17 08:00 04/24/17 11:00 04/24/17 11:00 04/24/17 11:45 04/24/17 11:00 General appearance: normal weight, no acute distress Exam: GEN: alert and interactive HEENT: pale mucosa, mouth dry RS; clear CVS: normal S1 and S2, no murmurs ABD: protuberant, non-tender EXTREMITIES: chronic venous stasis changes with pink shallow ulcer to lateral left leg Results - Labs CBC & BMP: 04/24/17 07:24 04/24/17 07:24 Lab Results: I have reviewed the past 24 hour labs
[2017-04-24] MEDS: GENTAMICIN 0.1% CREAM 15 GM TUBE TOP SCH (12:30)
[2017-04-24] MEDS: VANCOMYCIN INJ 1,250 MG in SODIUM CHLORIDE 0.9% 250 ML IV SCH (14:30)
[2017-04-24] MEDS: NOREPINEPHRINE 8 MG in SODIUM CHLORIDE 0.9% 242 ML IV SCH ×2 (15:00→21:00)
[2017-04-25] MEDS: ALBUTEROL/IPRATROPIUM 3 ML NEB RESP TX SCH ×4 (00:44→18:56)
[2017-04-25] MEDS: LACTULOSE 20 GM/30 ML UDCUP PO SCH ×5 (02:29→20:20)
[2017-04-25] MEDS: SODIUM CHLORIDE 0.9% 1,000 ML IV SCH ×4 (04:30→22:05)
[2017-04-25] MEDS ORDERED: DILTIAZEM 100 MG VIAL.ADD IV ONE (04:36)
[2017-04-25] MEDS ORDERED: DILTIAZEM 50 MG/10 ML VIAL IV ONE ×2 (04:37→04:38)
[2017-04-25] MEDS ORDERED: SODIUM CHLORIDE 0.9% 250 ML IV ONE (04:38)
[2017-04-25] MEDS: DILTIAZEM INJ 100 MG in SODIUM CHLORIDE 0.9% 100 ML IV SCH (05:03)
[2017-04-25] MEDS: CEFEPIME 2,000 MG in SODIUM CHLORIDE 0.9% 100 ML IV SCH ×3 (05:27→20:15)
[2017-04-25 06:25] LABS: Basophils # 0.1 10*3/uL (0.0-0.2); Basophils % 0.9 % (0.0-0.8); Eosinophils # 0.1 10*3/uL (0.0-0.87); Hematocrit 32.7 VOL% (35.7-47.0); Hemoglobin 10.2 GM/DL (12.0-16.0); Immature Granulocytes Absolute 0.07 #; Lymphocytes # 1.1 10*3/uL (1.4-4.0); Lymphocytes % 15.3 % (21.3-54.2); Mean Corpuscular HGB Conc 31.2 GM/DL (32-36); Mean Corpuscular Hemoglobin 33 PG (27-34); Mean Corpuscular Volume 105.1 FL (87-102); Mean Platelet Volume 9.2 FL (9.6-12.0); Monocytes # 1.2 10*3/uL (0.11-0.8); Monocytes % 16.7 % (1.7-12.7); Neutrophils # 4.4 10*3/uL (1.4-7.4); Neutrophils % 64.1 % (38.7-73.9); Red Blood Count 3.11 MC/CUMM (3.8-5.5); Red Cell Distribution Width 22.9 % (9.3-17.3); White Blood Count 6.9 T/CUMM (4-12)
[2017-04-25 06:29] LABS: Platelet Count 60 T/CUMM (130-400)
[2017-04-25 06:50] LABS: Band Neutrophils 1 % (0-10); Eosinophils 2 % (0-10); Hypochromasia 1+; Lymphocytes 9 % (20-55); Platelet Estimate Decreased; Segmented Neutrophils 74 % (50-85); Total Cells Counted 100
[2017-04-25 06:51] LABS: Macrocytosis Slight
[2017-04-25 06:53] LABS: Calcium 7.9 MG/DL (8.5-10.1); Potassium 3.3 MMOL/L (3.5-5.1)
[2017-04-25 07:07] LABS: Free T4 (Free Thyroxine) 1.38 NG/DL (0.76-1.46); Thyroid Stimulating Hormone 0.283 uIU/ml (0.358-3.74)
[2017-04-25] MEDS: INSULIN REGULAR 100 UNIT/ML SUBCUT SCH ×4 (07:30→20:31)
[2017-04-25] MEDS ORDERED: POTASSIUM CHLORIDE RIDER 10 MEQ in PREMIX 1 EACH IV PRN (07:48)
--- NOTE | 2017-04-25 07:53 | Hospitalist Progress Note ---
Assessment and Plan (1) Urinary tract infection Status: Acute Assessment and plan: She was diagnosed on admission with a urinary tract infection. It was the impression of infectious diseases that the most likely organism was Pseudomonas due to previous cultures during her previous hospitalization demonstrating Pseudomonas infection. She has been continued on intravenous cefepime and vancomycin as per infectious diseases. Current Visit: Yes (2) Severe sepsis Status: Acute Assessment and plan: She she continues on the above antibiotics for sepsis. Her shock has resolved. She no longer is requiring intravenous norepinephrine to maintain adequate blood pressure. Current Visit: Yes (3) Venous stasis ulcer Status: Acute Assessment and plan: Her venous stasis ulcers do not appear to be actively infected at the present time. She is unable to have RUPESH stockings because of the venous stasis ulcer. Venous thromboembolism prophylaxis will be provided by restarting her apixaban. Current Visit: Yes Qualifiers: Venous stasis ulcer site: calf (4) History of spinal abscess Status: Acute Assessment and plan: There is no evidence of recurrence of her paraspinal abscess. Current Visit: Yes (5) Renal insufficiency Status: Acute Assessment and plan: Her BUN and creatinine today are 29 and 1.0 respectively. Her acute renal failure has resolved with intravenous normal saline. Current Visit: Yes (6) Atrial fibrillation Status: Acute Assessment and plan: She is a previous history of atrial fibrillation that has been treated with apixaban, metoprolol, and diltiazem. She experienced last night atrial fibrillation with rapid ventricular response. Her heart rate was adequately controlled with intravenous diltiazem. I will restart her apixaban, metoprolol , and diltiazem today. She is being followed by cardiology. Current Visit: No Hospitalist: Subjective Interval history: She is comfortable today with no specific complaints. She is not experiencing chest pain, shortness of breath, or palpitations. 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 Most significant event occurring during the night was atrial fibrillation with rapid ventricular response. She has been successfully treated with intravenous diltiazem. She continues on intravenous cefepime and vancomycin, as managed by ID, for treatment of Pseudomonas urinary tract infection and sepsis. Her blood pressure is now 110/70, off of vasopressors. Exam - Constitutional Vitals: Period Temp Pulse Resp BP Sys/Eagle Pulse Ox Last 24 Hr 97.4 F-99.2 F 98-142 13-126 74-122/48-82 96-100 General appearance: no acute distress - Head Head exam: Present: normal inspection - Neck Neck exam: Present: normal inspection - Respiratory Respiratory exam: Present: clear to auscultation bilaterally - Cardiovascular Cardiovascular exam: Present: irregular rhythm, tachycardia - GI/Abdominal GI/Abdominal exam: Present: normal bowel sounds, soft, other (Nontender with no palpable masses or hepatosplenomegaly.) - Extremities Exam Extremities exam: Present: other (Ulcer of left heel.) - Neurological Exam Neurological exam: Present: alert, oriented X3 - Psychiatric Psychiatric exam: Present: normal affect, normal mood - Skin Skin exam: Present: normal color, warm, intact Results - Labs CBC & BMP: 04/25/17 06:06 04/25/17 06:07 Quality Measures - VTE Contraindication to Mechanical VTE Prophylaxis: Local Inflammation
[2017-04-25] MEDS: POTASSIUM CHLORIDE RIDER 20 MEQ in PREMIX 1 EACH IV PRN ×2 (08:25→09:20)
[2017-04-25] MEDS: INSULIN GLARGINE 100 UNIT/ML SUBCUT SCH ×2 (09:00→20:32)
[2017-04-25] MEDS: POTASSIUM CHLORIDE 20 MEQ TABLET PO SCH (09:20)
[2017-04-25] MEDS: LACTOBACILLUS ACIDOPHILUS/BULGARICUS CAPLET PO SCH (09:20)
[2017-04-25] MEDS: LEVOTHYROXINE 75 MCG TABLET PO SCH (09:20)
[2017-04-25] MEDS: APIXABAN 5 MG TABLET PO SCH ×2 (09:20→20:16)
[2017-04-25] MEDS: ALLOPURINOL 300 MG TABLET PO SCH (09:20)
[2017-04-25] MEDS: PANTOPRAZOLE 40 MG TABLET PO SCH (09:20)
[2017-04-25] MEDS: DILTIAZEM CD 120 MG CAPSULE PO SCH (09:20)
[2017-04-25] MEDS: METOPROLOL TARTRATE 25 MG TABLET PO SCH ×2 (09:20→20:17)
[2017-04-25] MEDS: FUROSEMIDE 40 MG TABLET PO SCH ×2 (09:20→20:16)
[2017-04-25] MEDS: SPIRONOLACTONE 50 MG TABLET PO SCH (09:20)
[2017-04-25] MEDS: GENTAMICIN 0.1% CREAM 15 GM TUBE TOP SCH (12:00)
[2017-04-25] MEDS: VANCOMYCIN INJ 1,250 MG in SODIUM CHLORIDE 0.9% 250 ML IV SCH (13:30)
[2017-04-25] MEDS: NOREPINEPHRINE 8 MG in SODIUM CHLORIDE 0.9% 242 ML IV SCH (15:00)
[2017-04-25] MEDS: FLUCONAZOLE 200 MG TABLET PO SCH (17:25)
[2017-04-25] MEDS: NYSTATIN CREAM 15 GM TUBE TOP SCH (20:15)
[2017-04-25] MEDS: MONTELUKAST 10 MG TABLET PO SCH (20:16)
[2017-04-26] MEDS: ALBUTEROL/IPRATROPIUM 3 ML NEB RESP TX SCH ×4 (00:56→19:51)
[2017-04-26] MEDS: LACTULOSE 20 GM/30 ML UDCUP PO SCH ×4 (03:10→21:14)
[2017-04-26] MEDS: DILTIAZEM INJ 100 MG in SODIUM CHLORIDE 0.9% 100 ML IV SCH (04:03)
[2017-04-26] MEDS: CEFEPIME 2,000 MG in SODIUM CHLORIDE 0.9% 100 ML IV SCH ×3 (04:03→21:12)
[2017-04-26 04:56] LABS: Basophils # 0.1 10*3/uL (0.0-0.2); Eosinophils # 0.3 10*3/uL (0.0-0.87); Eosinophils % 2.7 % (0.00-10.9); Hematocrit 35.3 VOL% (35.7-47.0); Hemoglobin 10.8 GM/DL (12.0-16.0); Immature Granulocytes % 1.3 %; Immature Granulocytes Absolute 0.13 #; Lymphocytes # 1.3 10*3/uL (1.4-4.0); Lymphocytes % 12.8 % (21.3-54.2); Mean Corpuscular HGB Conc 30.6 GM/DL (32-36); Mean Corpuscular Hemoglobin 33 PG (27-34); Mean Corpuscular Volume 108.6 FL (87-102); Mean Platelet Volume 10.4 FL (9.6-12.0); Monocytes # 1.7 10*3/uL (0.11-0.8); Monocytes % 16.6 % (1.7-12.7); NRBC # 0.02 10*3/uL; Neutrophils # 6.6 10*3/uL (1.4-7.4); Neutrophils % 65.6 % (38.7-73.9); Red Blood Count 3.25 MC/CUMM (3.8-5.5); Red Cell Distribution Width 23.2 % (9.3-17.3)
[2017-04-26 04:57] LABS: Platelet Count 66 T/CUMM (130-400)
[2017-04-26 05:42] LABS: Eosinophils 2 % (0-10); Lymphocytes 19 % (20-55); Segmented Neutrophils 70 % (50-85)
[2017-04-26 05:44] LABS: Anisocytosis Slight; Macrocytosis Slight; Platelet Estimate Decreased; Total Cells Counted 100
[2017-04-26] MEDS: SODIUM CHLORIDE 0.9% 1,000 ML IV SCH ×2 (06:20→10:51)
[2017-04-26] MEDS: INSULIN REGULAR 100 UNIT/ML SUBCUT SCH ×4 (08:15→21:13)
--- NOTE | 2017-04-26 08:27 | Hospitalist Progress Note ---
Assessment and Plan (1) Urinary tract infection Status: Acute Assessment and plan: She was diagnosed on admission with a urinary tract infection. It was the impression of infectious diseases that the most likely organism was Pseudomonas due to previous cultures during her previous hospitalization demonstrating Pseudomonas infection. She has been continued on intravenous cefepime and vancomycin as per infectious diseases. Current Visit: Yes (2) Severe sepsis Status: Acute Assessment and plan: She she continues on the above antibiotics for sepsis. Her shock has resolved. Current Visit: Yes (3) Venous stasis ulcer Status: Acute Assessment and plan: Her venous stasis ulcers do not appear to be actively infected at the present time. She is unable to have RUPESH stockings because of the venous stasis ulcer. Venous thromboembolism prophylaxis will be provided by restarting her apixaban. Current Visit: Yes Qualifiers: Venous stasis ulcer site: calf (4) History of spinal abscess Status: Acute Assessment and plan: There is no evidence of recurrence of her paraspinal abscess. Current Visit: Yes (5) Renal insufficiency Status: Acute Assessment and plan: Her BUN and creatinine today are 28 and 1.1 respectively. Her acute renal failure has resolved with intravenous normal saline. Current Visit: Yes (6) Atrial fibrillation Status: Acute Assessment and plan: She is a previous history of atrial fibrillation that has been treated with apixaban, metoprolol, and diltiazem. She experienced last night atrial fibrillation with rapid ventricular response. Her heart rate was adequately controlled with intravenous diltiazem. The above medications were restarted yesterday. Her heart rate is adequately controlled today. Current Visit: No (7) Thrombocytopenia Status: Acute Assessment and plan: Her platelet count today is 66,000. Her thrombocytopenia is most probably secondary to her underlying infection. Current Visit: No Hospitalist: Subjective Interval history: She was diagnosed on admission with a urinary tract infection. It was the impression of infectious diseases that the most likely organism was Pseudomonas due to previous cultures during her previous hospitalization demonstrating Pseudomonas infection. She has been continued on intravenous cefepime and vancomycin as per infectious diseases. There were no significant overnight events. Exam - Constitutional Vitals: Period Temp Pulse Resp BP Sys/Eagle Pulse Ox Last 24 Hr 97.0 F-98.9 F 86-134 14-24 70-114/46-74 91-100 General appearance: no acute distress - Head Head exam: Present: normal inspection - Neck Neck exam: Present: normal inspection - Respiratory Respiratory exam: Present: clear to auscultation bilaterally - Cardiovascular Cardiovascular exam: Present: regular rate and rhythm - GI/Abdominal GI/Abdominal exam: Present: normal bowel sounds, soft, other (Nontender with no palpable masses or hepatosplenomegaly.) - Extremities Exam Extremities exam: Present: normal inspection - Neurological Exam Neurological exam: Present: alert - Skin Skin exam: Present: normal color, warm, intact Results - Labs CBC & BMP: 04/26/17 04:05 04/26/17 04:05 Quality Measures - VTE Contraindication to Mechanical VTE Prophylaxis: Local Inflammation
[2017-04-26] MEDS ORDERED: FUROSEMIDE 40 MG/4 ML VIAL IV ONE (08:39)
--- NOTE | 2017-04-26 08:42 | Cardiology Consult Note ---
Assessment and Plan (1) Atrial fibrillation Status: Acute Assessment and plan: 71-year-old female, with urosepsis, hypotension, permanent atrial fibrillation, hepatitis C, cirrhosis, chronic edema. Hypertension, RVR is likely related to sepsis. No evidence of ACS., -Continue volume repletion. Sepsis improving. Severe TR, she is preload sensitive. Preserved systolic function. -Rate control, A. fib. This is permanent. She is still on a pressor, which limits increasing CCB/BB. Start IV digoxin load, switch to p.o. tomorrow once stable, she may be transitioned back to her old regimen. No indication for cardioversion. -Anticoagulation. Continue Eliquis. She is high risk for bleeding complications but no significant issues so far. Current Visit: No (2) Hematoma of left lower extremity Status: Acute Current Visit: No (3) Hypertension Status: Acute Current Visit: No (4) Bacteremia Status: Acute Current Visit: No (5) Urinary tract infection Status: Acute Current Visit: Yes (6) Hypotension Status: Acute Current Visit: Yes History of Present Illness - Data of Consult Patient: new to practice Consult date: 04/26/17 - Consult Narrative Reason for consult: AF/rvr, low BP History of present illness: Ms. Miller is a 71 year old female, followed by dr. Jones. H/o permanent atrial fibrillation, insulin-dependent diabetes mellitus, hypothyroidism, paraspinal abscess, rheumatoid arthritis, asthma, hepatitis C, and liver cirrhosis the patient has a surgical history significant for cholecystectomy and hernia repair. She was recently treated at [facility] due to paraspinal abscess. She was readmitted here, few days after discharge, due to urosepsis. Her blood pressure was trending low and required pressor support. She is in atrial fibrillation, heart rate trending in the 120s. She is a very poor historian and unable to provide more details about her symptoms. The Cardizem and metoprolol was continued. Echo showed preserved systolic function mild pulmonary hypertension, moderate to severe TR. She is anticoagulated Eliquis, no prior history of severe bleeding issues. EKG without significant ischemic changes. CC: Jarvis Moy - Home Medications and Allergies Home Medications: Home Medications Medication Instructions Recorded Confirmed Type Allopurinol 300 mg PO DAILY 04/23/16 04/23/17 History Potassium Chloride 20 meq PO DAILY 10/11/16 04/23/17 History Montelukast Tab [Singulair Tab] 10 mg PO BEDTIME tablet 10/17/16 04/23/17 Rx Pantoprazole Tab [Protonix Tab] 40 mg PO DAILY tablet 10/17/16 04/23/17 Rx Metoprolol Tartrate Tab [Lopressor 0.5 tablet PO BID 12/23/16 04/23/17 History Tab] Spironolactone [Aldactone] 50 mg PO DAILY 12/23/16 04/23/17 History Apixaban [Eliquis] 5 mg PO BID 04/23/17 04/23/17 History Cefepime in Iso-Osm Dextrose 2 gm IV TID 04/23/17 04/23/17 History [Cefepime 2 gm Injection] Diltiazem Cd Cap [Cardizem CD] 120 mg PO QAM 04/23/17 04/23/17 History Furosemide Tab [Lasix Tab] 40 mg PO BID 04/23/17 04/23/17 History Insulin Glargine [Lantus] 10 unit SUBCUT QAM 04/23/17 04/23/17 History Insulin Glargine [Lantus] 50 unit SUBCUT BEDTIME 04/23/17 04/23/17 History Lactobacillus Combo No.6 1 each PO DAILY 04/23/17 04/23/17 History [Probiotic Complex] Levothyroxine Tab [Synthroid Tab] 75 mcg PO DAILY 04/23/17 04/23/17 History Allergies/Adverse Reactions: Allergies Allergy/AdvReac Type Severity Reaction Status Date / Time Penicillins Allergy HIVES Verified 04/23/17 10:46 sulfamethoxazole Allergy Vomiting Verified 04/23/17 10:46 [From Bactrim] trimethoprim [From Bactrim] Allergy Vomiting Verified 04/23/17 10:46 12 point system: reviewed and no additional remarkable complaints except as stated Medical,Surgical,& Family Hx - Medical History Cardio: History of: Cardiac Dysrhythmia (A-FIB) HEENT: History of: Eye Problem (GLASSES), Dental Problems (upper partial) Endocrine: History of: Diabetes Mellitus (IDDM), Thyroid Disorder Rheumatology: History of;: Rheumatoid Arthritis Respiratory: History of: Asthma Renal: History of: Renal Problems (renal insufficiency, sees Dr Damon) Gastrointestinal: History of: Hepatitis (C), Liver Problems (CIRRHOSIS) Musculoskeletal: History of: Musculoskeletal Problems ("bad knees") Hematology: History of: Anemia - Surgical History Abdominal Surgeries: Surgical HX of: Cholecystectomy, Hernia Repair Reproductive Surgeries: Surgical HX of;: Hysterectomy - Family History Family History: Reports;: Family Diabetes, Family Heart Disease, Family Hypertension - Social History Smoking Status: Never smoker Frequency of Alcohol Use: None Type of Drug Use: None Physical Examination Vital Signs Temp Pulse Resp BP Pulse Ox 97.9 F 96 H 18 82/50 98 04/23/17 10:31 04/23/17 10:31 04/23/17 10:31 04/23/17 10:31 04/23/17 10:31 General: Present: No Apparent Distress HEENT: Present: Mucus Membranes Moist Neck: Present: No JVD/HJR Cardiac: Present: Irregularly Regular, Systolic Murmur Lungs: Present: Clear Ascult./Percussion Neuro: Present: Other (Confused,) Abdomen: Present: Soft, Decreased Bowel Sounds Skin: Present: Other (Chronic venous stasis bandage on the legs) Extremities: Present: No Clubbing, +3 Edema Result/EKG - Labs CBC & BMP: 04/26/17 04:05 04/26/17 04:05 Lab Results: I have reviewed the past 24 hour labs Labs: Laboratory Results - last 24 hr 04/25/17 04/25/17 04/25/17 11:35 15:47 20:02 WBC RBC Hgb Hct MCV MCH MCHC RDW Plt Count MPV Neut % (Auto) Lymph % (Auto) Swisher % (Auto) Eos % (Auto) Baso % (Auto) Neut # (Auto) Lymph # (Auto) Swisher # (Auto) Eos # (Auto) Baso # (Auto) Total Counted Immature Gran % Nucleated RBC % Immature Gran # Segmented Neutrophils Lymphocytes Monocytes Eosinophils Nucleated RBCs # Platelet Estimate Anisocytosis Macrocytosis Sodium Potassium Chloride Carbon Dioxide Anion Gap BUN Creatinine GFR Calculation BUN/Creatinine Ratio Glucose POC Glucose 200 H 200 H 188 H Calculated Osmolality Calcium 04/26/17 04/26/17 04:05 04:05 WBC 10.0 D RBC 3.25 L Hgb 10.8 L Hct 35.3 L MCV 108.6 H MCH 33 MCHC 30.6 L RDW 23.2 H Plt Count 66 L MPV 10.4 Neut % (Auto) 65.6 Lymph % (Auto) 12.8 L Swisher % (Auto) 16.6 H Eos % (Auto) 2.7 Baso % (Auto) 1.0 H Neut # (Auto) 6.6 Lymph # (Auto) 1.3 L Swisher # (Auto) 1.7 H Eos # (Auto) 0.3 Baso # (Auto) 0.1 Total Counted 100 Immature Gran % 1.3 Nucleated RBC % 0.2 Immature Gran # 0.13 Segmented Neutrophils 70 Lymphocytes 19 L Monocytes 9 Eosinophils 2 Nucleated RBCs # 0.02 Platelet Estimate Decreased Anisocytosis Slight Macrocytosis Slight Sodium 143 Potassium 4.0 Chloride 121 H Carbon Dioxide 9 L Anion Gap 17.0 H BUN 28 H Creatinine 1.10 H GFR Calculation 57 BUN/Creatinine Ratio 25.00 H Glucose 160 H POC Glucose Calculated Osmolality 293.0 Calcium 8.0 L - EKG EKG results: interpreted by me Quality Measures - VTE Contraindication to Mechanical VTE Prophylaxis: Local Inflammation
[2017-04-26] MEDS ORDERED: DIGOXIN 0.5 MG/2 ML AMP IV ONE (08:43)
--- NOTE | 2017-04-26 08:49 | XRay Report ---
Portable chest Date: 04/26/2017 Clinical history: CHF, atrial fibrillation Comparison: 04/23/2017 Technique: Portable AP sitting chest Findings: The heart is minimally larger in size with progressive diffuse parenchymal findings and small pleural effusions. Stable right arm PICC line, mediastinal, and osseous structures. Impression: Progressive [id number] CHF/infiltration with larger small pleural effusions. Findings are more pronounced in the right lung. Stable right arm PICC line. PROCEDURE INTERPRETED AT [facility] DEPARTMENT OF RADIOLOGY Final Report Signed by: Dr. Kerri Barbosa
[2017-04-26] MEDS: FUROSEMIDE 40 MG TABLET PO SCH ×2 (09:00→21:14)
[2017-04-26] MEDS: POTASSIUM CHLORIDE 20 MEQ TABLET PO SCH (10:24)
[2017-04-26] MEDS: FLUCONAZOLE 200 MG TABLET PO SCH (10:26)
[2017-04-26] MEDS: APIXABAN 5 MG TABLET PO SCH ×2 (10:27→21:14)
[2017-04-26] MEDS: PANTOPRAZOLE 40 MG TABLET PO SCH (10:28)
[2017-04-26] MEDS: SPIRONOLACTONE 50 MG TABLET PO SCH (10:30)
[2017-04-26] MEDS: LACTOBACILLUS ACIDOPHILUS/BULGARICUS CAPLET PO SCH (10:31)
[2017-04-26] MEDS: DILTIAZEM CD 120 MG CAPSULE PO SCH (10:33)
[2017-04-26] MEDS: ALLOPURINOL 300 MG TABLET PO SCH (10:35)
[2017-04-26] MEDS: INSULIN GLARGINE 100 UNIT/ML SUBCUT SCH ×2 (10:42→20:43)
[2017-04-26] MEDS: METOPROLOL TARTRATE 25 MG TABLET PO SCH ×2 (10:42→20:45)
[2017-04-26] MEDS: NYSTATIN CREAM 15 GM TUBE TOP SCH ×3 (10:46→21:14)
[2017-04-26] MEDS: GENTAMICIN 0.1% CREAM 15 GM TUBE TOP SCH (10:46)
[2017-04-26] MEDS: LEVOTHYROXINE 75 MCG TABLET PO SCH (11:02)
[2017-04-26] MEDS: VANCOMYCIN INJ 1,250 MG in SODIUM CHLORIDE 0.9% 250 ML IV SCH (14:21)
[2017-04-26] MEDS: DIGOXIN 0.5 MG/2 ML AMP IV SCH ×2 (16:32→21:12)
[2017-04-26] MEDS: MONTELUKAST 10 MG TABLET PO SCH (21:14)
[2017-04-26] MEDS: NOREPINEPHRINE 8 MG in SODIUM CHLORIDE 0.9% 242 ML IV SCH (21:16)
[2017-04-27] MEDS: SODIUM CHLORIDE 0.9% 1,000 ML IV SCH ×2 (00:10→04:48)
[2017-04-27] MEDS: ALBUTEROL/IPRATROPIUM 3 ML NEB RESP TX SCH ×4 (00:57→19:26)
[2017-04-27] MEDS: GENTAMICIN 0.1% CREAM 15 GM TUBE TOP SCH ×3 (02:10→16:20)
[2017-04-27] MEDS: LACTULOSE 20 GM/30 ML UDCUP PO SCH ×4 (02:45→21:25)
[2017-04-27 03:34] LABS: Allen Test Positive
[2017-04-27 03:35] LABS: ABG Base Excess -17.3 MMOL/L (-2.5-2.5); ABG HCO3 11.6 MMOL/L (20-26); ABG Oxygen Saturation 97.9 % (95-100); ABG PH 7.253 (7.35-7.45)
[2017-04-27 03:38] LABS: ABG PCO2 19.7 MM HG (35-48)
[2017-04-27] MEDS: DILTIAZEM INJ 100 MG in SODIUM CHLORIDE 0.9% 100 ML IV SCH (04:47)
[2017-04-27] MEDS: CEFEPIME 2,000 MG in SODIUM CHLORIDE 0.9% 100 ML IV SCH ×2 (05:35→16:25)
[2017-04-27 05:45] LABS: Basophils # 0.1 10*3/uL (0.0-0.2); Basophils % 1.1 % (0.0-0.8); Eosinophils # 0.2 10*3/uL (0.0-0.87); Eosinophils % 2.7 % (0.00-10.9); Hematocrit 32.4 VOL% (35.7-47.0); Hemoglobin 9.8 GM/DL (12.0-16.0); Immature Granulocytes % 1.5 %; Immature Granulocytes Absolute 0.12 #; Lymphocytes % 12.3 % (21.3-54.2); Mean Corpuscular HGB Conc 30.2 GM/DL (32-36); Mean Corpuscular Hemoglobin 33 PG (27-34); Mean Corpuscular Volume 110.2 FL (87-102); Mean Platelet Volume 10.5 FL (9.6-12.0); Monocytes # 1.3 10*3/uL (0.11-0.8); Monocytes % 16.2 % (1.7-12.7); NRBC # 0.02 10*3/uL; Neutrophils # 5.5 10*3/uL (1.4-7.4); Neutrophils % 66.2 % (38.7-73.9); Platelet Count 58 T/CUMM (130-400); Red Blood Count 2.94 MC/CUMM (3.8-5.5); Red Cell Distribution Width 23.3 % (9.3-17.3); White Blood Count 8.2 T/CUMM (4-12)
[2017-04-27 05:59] LABS: Eosinophils 4 % (0-10); Hypochromasia 1+; Lymphocytes 10 % (20-55); Platelet Estimate Decreased; Segmented Neutrophils 74 % (50-85); Total Cells Counted 100
[2017-04-27 06:00] LABS: Macrocytosis Slight
[2017-04-27 06:04] LABS: Albumin 1.4 G/DL (3.4-5.0); Bilirubin,Total 1.3 MG/DL (0.2-1.0); Calcium 8.1 MG/DL (8.5-10.1); Magnesium 1.9 MG/DL (1.8-2.4); Potassium 3.8 MMOL/L (3.5-5.1); Total Protein 6.5 G/DL (6.4-8.3)
--- NOTE | 2017-04-27 06:53 | XRay Report ---
XR chest 1V portable Indication: Shortness of breath. Chest one view: Comparison yesterday. PICC line, normal heart size and tortuous thoracic aorta are stable. Lung volumes have decreased somewhat with progressive atelectasis. No new infiltrates are seen. Mild hazy obscuration of the right lung base persists. Impression: Worsening pulmonary hypoinflation. Otherwise no change. PROCEDURE INTERPRETED AT [facility] DEPARTMENT OF RADIOLOGY Final Report Signed by: Cam Tang M.D.
[2017-04-27] MEDS ORDERED: diphenhydrAMINE 50 MG/1 ML VIAL IV PRN (08:09)
[2017-04-27] MEDS ORDERED: diphenhydrAMINE CAP 25 MG CAPSULE PO PRN (08:10)
--- NOTE | 2017-04-27 08:38 | Hospitalist Progress Note ---
Assessment and Plan (1) Urinary tract infection Status: Acute Assessment and plan: She was diagnosed on admission with a urinary tract infection. It was the impression of infectious diseases that the most likely organism was Pseudomonas due to previous cultures during her previous hospitalization demonstrating Pseudomonas infection. She has been continued on intravenous cefepime and vancomycin as per infectious diseases. Wound cultures have grown MRSA and VRE, the latter sensitive to gentamicin. I will continue the vancomycin and begin gentamicin. I will defer to ID for further adjustments of her antibiotics. Current Visit: Yes (2) Severe sepsis Status: Acute Assessment and plan: She she continues on antibiotics for sepsis. Her shock has resolved. Current Visit: Yes (3) Venous stasis ulcer Status: Chronic Assessment and plan: As noted above, she has chronic venous stasis dermatitis. There appears to be one area of an abrasion. Cultures have demonstrated VRE and MRSA for which antibiotics have been appropriately adjusted. She is chronically anticoagulated with apixaban. Current Visit: Yes Qualifiers: Venous stasis ulcer site: calf (4) History of spinal abscess Status: Acute Assessment and plan: There is no evidence of recurrence of her paraspinal abscess. Current Visit: Yes (5) Renal insufficiency Status: Acute Assessment and plan: Her BUN and creatinine today are 28 and 1.3 respectively. Her acute renal failure has resolved with intravenous normal saline. She has metabolic acidosis with arterial blood gas demonstrating pH 7.253, PCO2 19.7, and PO2 102. Her CO2 is 9. I will treat her with sodium bicarbonate and have consulted nephrology. Current Visit: Yes (6) Atrial fibrillation Status: Chronic Assessment and plan: She is a previous history of atrial fibrillation that has been treated with apixaban, metoprolol, and diltiazem. Her heart rate appears adequately controlled at the present time with diltiazem. She is being followed by cardiology. Current Visit: No (7) Thrombocytopenia Status: Acute Assessment and plan: Her platelet count today is 58,000. Her platelet count yesterday was 60,000. Her thrombocytopenia is most probably secondary to her underlying infection. Current Visit: No Hospitalist: Subjective Interval history: Ms. Miller remains in ICU. Does not appear to be in acute respiratory distress, but she offers minimal verbal response and does not open eyes. Generalized body tremors noted. IV Levophed has been off since 5 AM, BP 130/90 during exam. Atrial fibrillation with controlled ventricular response, 90s. She is chronically anticoagulated with Eliquis for stroke prevention (no history of bleeding issues). Rate controlled with PO Cardizem and starting PO Digoxin today after IV load yesterday. Chest x-ray this morning with progressive atelectasis, worsening pulmonary hypoinflation. ABGs noted. Electrolytes and renal function stable. Dr. Kern (infectious diseases medicine) following also. Her major complaint today appears to be itching. She is a previous history of chronic liver disease. This may be partly attributable to that. Wound cultures have demonstrated MRSA and VRE. She is presently being treated with cefepime and vancomycin. The VRE is not sensitive to vancomycin or cefepime; it is sensitive to gentamicin. I will begin her on intravenous gentamicin and requests that pharmacy adjust her dose according to renal function. I will defer to ID for whenever antibiotics they so choose. Exam - Constitutional Vitals: Period Temp Pulse Resp BP Sys/Eagle Pulse Ox Last 24 Hr 97.4 F-98.8 F 76-127 14-29 76-130/42-84 97-100 General appearance: mild distress - Head Head exam: Present: normal inspection - Neck Neck exam: Present: normal inspection - Respiratory Respiratory exam: Present: other (Scattered rhonchi.) - Cardiovascular Cardiovascular exam: Present: irregular rhythm, tachycardia - GI/Abdominal GI/Abdominal exam: Present: normal bowel sounds, soft, other (Nontender with no palpable masses or hepatosplenomegaly.) - Extremities Exam Extremities exam: Present: other (There is severe venous stasis dermatitis of both lower extremities.) - Neurological Exam Neurological exam: Present: other (She is awake but only partially responsive to conversation.) - Skin Skin exam: Present: normal color, warm, intact Results - Labs CBC & BMP: 04/27/17 05:28 04/27/17 05:28 Quality Measures - VTE Contraindication to Mechanical VTE Prophylaxis: Local Inflammation
[2017-04-27] MEDS ORDERED: SODIUM BICARBONATE 50 MEQ/50 ML SYRINGE IV SCH (09:00)
[2017-04-27] MEDS: DILTIAZEM CD 120 MG CAPSULE PO SCH (10:38)
[2017-04-27] MEDS: POTASSIUM CHLORIDE 20 MEQ TABLET PO SCH (10:39)
[2017-04-27] MEDS: PANTOPRAZOLE 40 MG TABLET PO SCH (10:39)
[2017-04-27] MEDS: LANSOPRAZOLE ODT 30 MG TABLET PO SCH (11:14)
[2017-04-27] MEDS: DIGOXIN 0.25 MG TABLET PO SCH ×2 (11:14→16:01)
[2017-04-27] MEDS: LACTOBACILLUS ACIDOPHILUS/BULGARICUS CAPLET PO SCH (11:15)
[2017-04-27] MEDS: APIXABAN 5 MG TABLET PO SCH ×2 (11:15→21:25)
[2017-04-27] MEDS: DILTIAZEM 30 MG TABLET PO SCH ×3 (11:15→21:25)
[2017-04-27] MEDS: FUROSEMIDE 40 MG TABLET PO SCH ×2 (11:15→21:25)
[2017-04-27] MEDS: METOPROLOL TARTRATE 25 MG TABLET PO SCH ×2 (11:16→21:24)
[2017-04-27] MEDS: ALLOPURINOL 300 MG TABLET PO SCH (11:16)
[2017-04-27] MEDS: POTASSIUM CHLORIDE 20 MEQ/15 ML UDCUP PO SCH (11:16)
[2017-04-27] MEDS: FLUCONAZOLE 200 MG TABLET PO SCH (11:16)
[2017-04-27] MEDS: SPIRONOLACTONE 50 MG TABLET PO SCH (11:16)
[2017-04-27] MEDS: INSULIN REGULAR 100 UNIT/ML SUBCUT SCH ×4 (11:17→21:25)
[2017-04-27] MEDS: LEVOTHYROXINE 75 MCG TABLET PO SCH (11:17)
[2017-04-27] MEDS: NYSTATIN CREAM 15 GM TUBE TOP SCH ×3 (11:18→21:38)
[2017-04-27] MEDS: INSULIN GLARGINE 100 UNIT/ML SUBCUT SCH ×2 (11:19→21:14)
--- NOTE | 2017-04-27 11:19 | Gastrointestinal Progress Note ---
<Anna Luong - Last Filed: 04/27/17 11:17> Assessment and Plan (1) Dysphagia Status: Acute Assessment and plan: 04/27-reports of dysphagia by family with significant difficulty swallowing prior to admission. Continue to monitor this time as patient improves, and able to hold Eliquis, we will consider proceeding with endoscopy for possible esophageal dilation if necessary. Plan an addendum to follow by Dr. Lzooya. 04/24-Reports on yesterday of "food sticking" with meals. No reports of this today however pt noted to be lethargic. No known history of EGD in the past. On Eliquis prior to admission, currently on hold. Plan and addendum to follow by Dr Lozoya Current Visit: Yes Gastroenterology - PN: Subj Interval history: CC: Dysphagia Patient is seen, lying in bed with family at side. She does not respond to commands or open eyes to verbal stimuli however she does move around in the bed at times. Family is present and concerned due to she was a little more alert on yesterday however will not respond to them today. After discussion with family, they report that the patient does have what they considered to be significant dysphagia and prior to admission was only able to eat small amounts of cream potatoes and things such as that. They have concerns regarding her nutrition what she recovers from her current illness. Discussed with family that once she has improved, and it is safe to hold her Eliquis as well as to proceed with endoscopy, we will at that time consider an EGD and possible dilation. They verbalized understanding. Abdomen soft, nontender. ROS: No acute distress noted Exam (Progress Note) - Constitutional Vitals: Period Temp Pulse Resp BP Sys/Eagle Pulse Ox Last 24 Hr 97.4 F-98.8 F 76-114 14-26 76-130/42-84 97-100 General appearance: normal weight, no acute distress - Head Head exam: Present: normal inspection, normocephalic - Eye Eye exam: Present: other (Lids and conjunctive are unremarkable). Absent: scleral icterus - ENT ENT exam: Present: normal exam, normal oropharynx - Neck Neck exam: Present: normal inspection - Respiratory Respiratory exam: Present: clear to auscultation bilaterally. Absent: rales, rhonchi, wheezes - Cardiovascular Cardiovascular exam: Present: regular rate and rhythm. Absent: diastolic murmur , JVD, systolic murmur - GI/Abdominal GI/Abdominal exam: Present: normal bowel sounds, soft. Absent: ascites, distended, mass, organomegaly, tenderness - Extremities Exam Extremities exam: Present: normal inspection, full ROM - Back Exam Back exam: Present: normal inspection - Neurological Exam Neurological exam: Present: alert, oriented X3 - Psychiatric Psychiatric exam: Present: normal affect, normal mood - Skin Skin exam: Present: normal color, warm, dry Results - Labs CBC & BMP: 04/27/17 05:28 04/27/17 05:28 Lab Results: I have reviewed the past 24 hour labs <Vel Lozoya - Last Filed: 04/27/17 18:08> Exam (Progress Note) - Constitutional Vitals: Period Temp Pulse Resp BP Sys/Eagle Pulse Ox Last 24 Hr 97.0 F-99.0 F 69-113 14-25 76-133/42-114 95-100 Results - Labs CBC & BMP: 04/27/17 05:28 04/27/17 05:28
--- NOTE | 2017-04-27 11:23 | Infectious Disease Progress ---
Assessment and Plan (1) History of spinal abscess Status: Acute Assessment and plan: Most likely due to Pseudomonas which was isolated from her blood cultures last mth. Continue cefepime; dose already adjusted for renal function over the weekend. We still need to get records from [facility]. Current Visit: Yes (2) Hypotension Status: Resolved Assessment and plan: Possibly due to septic shock, improved but overall patient doing poorly clinically. Current Visit: Yes (3) Renal insufficiency Status: Acute Assessment and plan: Somewhat improved since admission Current Visit: Yes (4) Severe sepsis Status: Acute Assessment and plan: have not identified specific new infection yet. Continue cefepime. Levofloxacin stopped over the weekend. Current Visit: Yes (5) Venous stasis ulcer Status: Chronic Assessment and plan: Culture swabs none of these ulcers came up positive but this represents colonization rather than actual infection of these ulcers. Continue local wound care and no specific antibiotics for these wounds. Current Visit: Yes Qualifiers: Venous stasis ulcer site: calf (6) Bacteremia Status: Acute Assessment and plan: Last mth had Pseudomonas septicemia. Blood cultures on this admission negative. Patient will continue cefepime for previous Pseudomonas spinal infection. Current Visit: No (7) Urinary tract infection Status: Acute Assessment and plan: Very cultured. Will add daptomycin 4 mg/kg daily 7 days. Current Visit: Yes Infectious Disease - PN: Subj Interval history: Patient not doing as well today, mental status declined over the weekend and now she is unresponsive. She has not had fever. No longer requires vasopressor support. Infectious Disease Exam (PN) - Constitutional Vitals: Temp Pulse Resp BP Pulse Ox 98.1 F 104 H 25 H 133/114 100 04/27/17 04:00 04/27/17 11:15 04/27/17 07:12 04/27/17 11:15 04/27/17 07:12 General appearance: normal weight, no acute distress Exam: GEN: Unresponsive even to noxious stimuli HEENT: pale mucosa RS: clear CVS: normal S1 and S2, no murmurs ABD: protuberant, non-tender EXTREMITIES: chronic venous stasis changes with pink shallow ulcer to lateral left leg without surrounding induration or erythema. Mild edema to both legs. Results - Labs CBC & BMP: 04/27/17 05:28 04/27/17 05:28 Lab Results: I have reviewed the past 24 hour labs Quality Measures - VTE Contraindication to Mechanical VTE Prophylaxis: Local Inflammation
--- NOTE | 2017-04-27 11:51 | Nephrology Consult Note ---
History of Present Illness Chief complaint: Chronic kidney disease with metabolic acidosis History of present illness: Ms. Miller is a 71 year old female who was admitted a few days ago for hypotension. The patient had recently been discharged from [facility] after being treated for sepsis and a spinal abscess. The history is taken from the chart and from medical personnel as the patient is unable to contribute to the history due to her medical condition. Apparently on presentation the patient was alert and cooperative and interacting but in the past day or so the patient has become less interactive. Patient had an NG tube placed in the past 24 hours. The patient's creatinine today is 1.3 mg/dL review of previous creatinines reveals her creatinine to fluctuate between normal to 2.5 mg/dL over the past several months. The patient has also had a worsening acidosis with a bicarbonate level of 9 presently this is a non-anion gap acidosis. Patient also has a history of hepatitis C and is been getting Chronulac for hyperammonemia. Review of systems unable be obtained due to patient's medical condition PE: General: Chronically ill-appearing Eyes: Pupils are round and reactive, conjunctivae are clear ENT: Nose is clear, O/P reveals mildly dry mucous membranes Neck: Supple, no thyromegaly Lymphatics: No cervical, supraclavicular or axillary adenopathy Heart: Regular rate and rhythm, 1+ pretibial edema Lungs: Clear to auscultation anteriorly, chest expansion symmetric Abdomen: Moderate distention with high-pitched tinkling bowel sounds. There is no hepatomegaly Musculoskeletal: No joint erythema or effusions or joint asymmetry Skin: Normal turgor, normal hydration, no rash Neuro/Psych: Patient did not interact with me she did not follow any commands she did not respond to any questions, she occasionally said O God and please do not please do not, she moves her upper extremities spontaneously on occasion. She kept her eyes closed throughout the exam. Home Medications Medication Instructions Recorded Confirmed Type Allopurinol 300 mg PO DAILY 04/23/16 04/23/17 History Potassium Chloride 20 meq PO DAILY 10/11/16 04/23/17 History Montelukast Tab [Singulair Tab] 10 mg PO BEDTIME tablet 10/17/16 04/23/17 Rx Pantoprazole Tab [Protonix Tab] 40 mg PO DAILY tablet 10/17/16 04/23/17 Rx Metoprolol Tartrate Tab [Lopressor 0.5 tablet PO BID 12/23/16 04/23/17 History Tab] Spironolactone [Aldactone] 50 mg PO DAILY 12/23/16 04/23/17 History Apixaban [Eliquis] 5 mg PO BID 04/23/17 04/23/17 History Cefepime in Iso-Osm Dextrose 2 gm IV TID 04/23/17 04/23/17 History [Cefepime 2 gm Injection] Diltiazem Cd Cap [Cardizem CD] 120 mg PO QAM 04/23/17 04/23/17 History Furosemide Tab [Lasix Tab] 40 mg PO BID 04/23/17 04/23/17 History Insulin Glargine [Lantus] 10 unit SUBCUT QAM 04/23/17 04/23/17 History Insulin Glargine [Lantus] 50 unit SUBCUT BEDTIME 04/23/17 04/23/17 History Lactobacillus Combo No.6 1 each PO DAILY 04/23/17 04/23/17 History [Probiotic Complex] Levothyroxine Tab [Synthroid Tab] 75 mcg PO DAILY 04/23/17 04/23/17 History Allergies Allergy/AdvReac Type Severity Reaction Status Date / Time Penicillins Allergy HIVES Verified 04/23/17 10:46 sulfamethoxazole Allergy Vomiting Verified 04/23/17 10:46 [From Bactrim] trimethoprim [From Bactrim] Allergy Vomiting Verified 04/23/17 10:46 Medical,Surgical,& Family Hx - Medical History Cardio: History of: Cardiac Dysrhythmia (A-FIB) HEENT: History of: Eye Problem (GLASSES), Dental Problems (upper partial) Endocrine: History of: Diabetes Mellitus (IDDM), Thyroid Disorder Rheumatology: History of;: Rheumatoid Arthritis Respiratory: History of: Asthma Renal: History of: Renal Problems (renal insufficiency, sees Dr Damon) Gastrointestinal: History of: Hepatitis (C), Liver Problems (CIRRHOSIS) Musculoskeletal: History of: Musculoskeletal Problems ("bad knees") Hematology: History of: Anemia - Surgical History Abdominal Surgeries: Surgical HX of: Cholecystectomy, Hernia Repair Reproductive Surgeries: Surgical HX of;: Hysterectomy - Family History Family History: Reports;: Family Diabetes, Family Heart Disease, Family Hypertension - Social History Smoking Status: Never smoker Frequency of Alcohol Use: None Type of Drug Use: None Exam - Vital Signs Vital signs: Period Temp Pulse Resp BP Sys/Eagle Pulse Ox Last 24 Hr 97.4 F-98.8 F 76-114 14-26 76-133/42-114 97-100 Results - Labs CBC & BMP: 04/27/17 05:28 04/27/17 05:28 Assessment and Plan (1) Metabolic acidosis Status: Acute Assessment and plan: Patient has a non-anion gap metabolic acidosis this may be related to her renal insufficiency and liver failure, I will start her on a bicarb infusion. Current Visit: Yes (2) Dysphagia Status: Acute Current Visit: Yes (3) Hepatic encephalopathy Status: Acute Assessment and plan: Continue Chronulac Current Visit: Yes (4) History of spinal abscess Status: Acute Current Visit: Yes (5) Renal insufficiency Status: Acute Assessment and plan: Patient's creatinine is been drifting up slightly the past couple of days, patient appears adequately volume resuscitated. Current Visit: Yes (6) Urinary tract infection Status: Acute Current Visit: Yes (7) Hypotension Status: Resolved Assessment and plan: Patient is presently off pressor support Current Visit: Yes (8) Thrombocytopenia Status: Acute Current Visit: No (9) Atrial fibrillation Status: Chronic Current Visit: No (10) Anemia Status: Acute Assessment and plan: This is mild patient's hematocrit is 32% Current Visit: Yes (11) Bowel dysfunction Status: Acute Assessment and plan: On exam this patient has a mildly distended abdomen with high-pitched bowel sounds, worried that she may be developing an obstruction or ileus. I am going to check an abdominal x-ray Current Visit: Yes
--- NOTE | 2017-04-27 13:10 | XRay Report ---
Exam: XR abdomen 1V Date: 04/27/2017 11:57 AM Comparison: 12/24/2016 Indication: Abdominal distention with high pitch bowel sounds Technique:[Supine abdomen] Findings: Mild to moderate gaseous distention of bowel, especially the colon. Nasogastric tube in the stomach with prior cholecystectomy. Calcified uterine leiomyomata. Degenerative changes are noted. Impression: Mild to moderate gaseous distention of the bowel which can be seen with ileus, etc. Follow-up x-ray may be helpful for further evaluation. Nasogastric tube in satisfactory position with prior cholecystectomy. Calcified uterine leiomyoma. PROCEDURE INTERPRETED AT [facility] DEPARTMENT OF RADIOLOGY Final Report Signed by: Dr. Kerri Brabosa
[2017-04-27] MEDS: DESITIN 4OZ/NYSTATIN 15 GRAM MIXTURE PASTE TOP SCH ×2 (13:26→21:38)
[2017-04-27] MEDS ORDERED: SODIUM ACETATE 150 MEQ in STERILE WATER INJ 850 ML IV SCH (14:00)
[2017-04-27] MEDS: STERILE WATER IV SCH (14:18)
[2017-04-27] MEDS: SODIUM ACETATE IV SCH (14:18)
--- NOTE | 2017-04-27 15:37 | Cardiology Progress Note ---
Nick Spencer Vanessa, RN, am scribing for, and in the presence of, David Sepulveda MD 15:37. Assessment and Plan - Time spent with patient Time spent with patient: Greater than 30 minutes (Assessment, planning, documentation, medication review) (1) Atrial fibrillation Status: Chronic Assessment and plan: 71-year-old white female with history of chronic atrial fibrillation, hypothyroidism, hepatitis C, cirrhosis, chronic edema, chronic venous insufficiency. She is admitted to ICU for treatment of urosepsis and has had hypotension and episode of RVR. There is question for CHF. Echo on 04/23 with preserved LV systolic function, mild pulmonary hypertension, and severe TR. April ASSESSMENT/PLAN: 1. ATRIAL FIBRILLATION - Chronic. Ventricular response controlled this AM. No further RVR overnight & was most likely related to sepsis. 2. HYPOTENSION- Improved this morning. IV vasopressor has been weaned off. Monitor closely and can reintroduce BB. 3. UTI- Appropriate IV antibiotic therapy. Infectious diseases medicine has also been following. 5. CHF- Preserved LV systolic function, severe TR per echo. Appears overall compensated at this time. Continue Lasix, spironolactone. Monitor BMP daily. 6. CHRONIC ANTICOAGULATION- Chronically anticoagulated with Eliquis. No overt S /S bleeding. 7. THROMBOCYTOPENIA- PLTs 58,000 this morning. Review of old records show this may be ongoing issue. Platelet count as low as 32,000 during hospital admission October 2016. 8. DIABETES- Continue current plan of care. Defer primary management to attending. 9. CHRONIC VENOUS INSUFFICIENCY- Venous statis ulcers of BLE's without appearance of infection. Surgical services has evaluated also & no indication for surgical intervention at this point. 10. ACUTE KIDNEY INJURY - Improved since admission with IV hydration. Creatinine & BUN 1.3/47. Monitor BMP daily. Avoiding GEOFFREY-I or ARB for fear of worsening renal function. jose alberto--04/27/17: Continue control A. fib with digoxin added. Her hypotension resolved with fluids and treatment of her infection. However, low CO2 and elevated lactate lactose lactic acid, suggest some ongoing sepsis/infection. ID is helping treat. Diastolic heart failure is being treated with medications Chronic anticoagulation/prevent a stroke, no evidence of recurrence of paraspinal abscess. Current Visit: No (2) Urinary tract infection Status: Acute Assessment and plan: SEE PLAN OF CARE LISTED ABOVE. Current Visit: Yes (3) Hypotension Status: Resolved Assessment and plan: SEE PLAN OF CARE LISTED ABOVE. Current Visit: Yes (4) Chronic anticoagulation Status: Chronic Assessment and plan: SEE PLAN OF CARE LISTED ABOVE. Current Visit: Yes (5) History of spinal abscess Status: Acute Current Visit: Yes (6) Venous stasis ulcer Status: Chronic Assessment and plan: SEE PLAN OF CARE LISTED ABOVE. Current Visit: Yes Qualifiers: Venous stasis ulcer site: calf (7) Thrombocytopenia Status: Acute Assessment and plan: SEE PLAN OF CARE LISTED ABOVE. Current Visit: No (8) Hypothyroid Status: Chronic Assessment and plan: SEE PLAN OF CARE LISTED ABOVE. Current Visit: Yes Cardiology - PN: Subj Interval history: PRIMARY MORTGAGE BANKER: DR. LOPEZ SUMMARY: 71 year old WF, risk factors significant for: age, obesity, diabetes. Past medical history includes chronic atrial fibrillation, hypothyroidism, hepatitis C with liver cirrhosis, chronic venous insufficiency, and asthma. [facility] to [facility] [facility] ICU on 04/23 with significant hypotension, altered mental status, acute kidney injury, and urosepsis after being discharged from [facility] 3 days prior after admission and treatment for paraspinal abscess. She was discharged from [facility] with PICC line for IV antibiotic therapy. Ulcerated wounds of bilateral lower extremities and buttock also. Urine and would culture positive for enterococcus faecalis VRE. Patient is also thrombocytopenic, PLT's down to 58,000. Chest x-ray on 04/26 showed some mild to moderate CHF. Cardiology was consulted for CHF and chronic atrial fibrillation with episode of RVR. Echo on 04/23 for normal LV size and systolic function, EF 60%, severe TR. April: Ms. Miller remains in ICU under close observation this morning. Does not appear to be in acute respiratory distress, but she offers minimal verbal response and does not open eyes. Generalized body tremors noted. IV Levophed has been off since 5 AM, BP 130/90 during exam. Atrial fibrillation with controlled ventricular response, 90s. She is chronically anticoagulated with Eliquis for stroke prevention (no history of bleeding issues). Rate controlled with PO Cardizem and starting PO Digoxin today after IV load yesterday. Chest x- ray this morning with progressive atelectasis, worsening pulmonary hypoinflation. ABGs noted. Electrolytes and renal function stable. Dr. Angelo Fotnana (infectious diseases medicine) following also. Exam (Progress Note) - Constitutional Vitals: Period Temp Pulse Resp BP Sys/Eagle Pulse Ox Last 24 Hr 97.2 F-98.8 F 76-127 14-29 76-130/42-84 97-100 Exam: General: Present: No Apparent Distress, overweight HEENT: Present: Mucus Membranes Moist Neck: Present: No JVD/HJR Cardiac: Present: Irregularly Regular, Systolic Murmur. No bradycardia. Lungs: Present: Clear Ascult./Percussion. No wheeze, rhonchi. Neuro: Present: Other (Confused) Abdomen: Present: Soft, Decreased Bowel Sounds. No tenderness. Skin: Present: Other (Chronic venous stasis of BLE's. Ulcers of BLE with dry/ intact dressing). No cyanosis, diaphoresis. Extremities: Present: No Clubbing, +3 Edema. Result/EKG - Labs CBC & BMP: 04/27/17 05:28 04/27/17 05:28 Lab Results: I have reviewed the past 24 hour labs Labs: Laboratory Results - last 24 hr 04/26/17 04/26/17 04/26/17 08:14 12:01 16:47 WBC RBC Hgb Hct MCV MCH MCHC RDW Plt Count MPV Neut % (Auto) Lymph % (Auto) [place] % (Auto) Eos % (Auto) Baso % (Auto) Neut # (Auto) Lymph # (Auto) [place] # (Auto) Eos # (Auto) Baso # (Auto) Total Counted Immature Gran % Nucleated RBC % Immature Gran # Segmented Neutrophils Lymphocytes Monocytes Eosinophils Nucleated RBCs # Platelet Estimate Immature Plt Fraction Hypochromasia Macrocytosis Morphology Comment ABG pH ABG pCO2 ABG pO2 ABG HCO3 ABG Total CO2 ABG O2 Saturation ABG Base Excess FiO2 Sodium Potassium Chloride Carbon Dioxide Anion Gap BUN Creatinine GFR Calculation BUN/Creatinine Ratio Glucose POC Glucose 172 H 161 H 218 H Calculated Osmolality Lactic Acid Calcium Magnesium Total Bilirubin AST ALT Alkaline Phosphatase Ammonia Total Protein Albumin Globulin Albumin/Globulin Ratio 04/26/17 04/26/17 04/27/17 16:49 20:36 03:15 WBC RBC Hgb Hct MCV MCH MCHC RDW Plt Count MPV Neut % (Auto) Lymph % (Auto) [place] % (Auto) Eos % (Auto) Baso % (Auto) Neut # (Auto) Lymph # (Auto) [place] # (Auto) Eos # (Auto) Baso # (Auto) Total Counted Immature Gran % Nucleated RBC % Immature Gran # Segmented Neutrophils Lymphocytes Monocytes Eosinophils Nucleated RBCs # Platelet Estimate Immature Plt Fraction Hypochromasia Macrocytosis Morphology Comment ABG pH 7.253 L ABG pCO2 19.7 L* ABG pO2 102.0 H ABG HCO3 11.6 L ABG Total CO2 8.0 L ABG O2 Saturation 97.9 ABG Base Excess -17.3 L FiO2 28.00 Sodium Potassium Chloride Carbon Dioxide Anion Gap BUN Creatinine GFR Calculation BUN/Creatinine Ratio Glucose POC Glucose 198 H 198 H Calculated Osmolality Lactic Acid Calcium Magnesium Total Bilirubin AST ALT Alkaline Phosphatase Ammonia Total Protein Albumin Globulin Albumin/Globulin Ratio 04/27/17 04/27/17 04/27/17 05:28 05:28 05:28 WBC 8.2 RBC 2.94 L Hgb 9.8 L Hct 32.4 L MCV 110.2 H MCH 33 MCHC 30.2 L RDW 23.3 H Plt Count 58 L MPV 10.5 Neut % (Auto) 66.2 Lymph % (Auto) 12.3 L [place] % (Auto) 16.2 H Eos % (Auto) 2.7 Baso % (Auto) 1.1 H Neut # (Auto) 5.5 Lymph # (Auto) 1.0 L [place] # (Auto) 1.3 H Eos # (Auto) 0.2 Baso # (Auto) 0.1 Total Counted 100 Immature Gran % 1.5 Nucleated RBC % 0.2 Immature Gran # 0.12 Segmented Neutrophils 74 Lymphocytes 10 L Monocytes 12 Eosinophils 4 Nucleated RBCs # 0.02 Platelet Estimate Decreased Immature Plt Fraction 1.4 Hypochromasia 1+ Macrocytosis Slight Morphology Comment ABG pH ABG pCO2 ABG pO2 ABG HCO3 ABG Total CO2 ABG O2 Saturation ABG Base Excess FiO2 Sodium 143 Potassium 3.8 Chloride 122 H Carbon Dioxide 9 L Anion Gap 15.8 H BUN 28 H Creatinine 1.30 H GFR Calculation 47 BUN/Creatinine Ratio 21.00 H Glucose 177 H POC Glucose Calculated Osmolality 294.0 Lactic Acid 2.1 H Calcium 8.1 L Magnesium 1.9 Total Bilirubin 1.30 H AST 55 H ALT 18 Alkaline Phosphatase 136 H Ammonia 32 Total Protein 6.5 Albumin 1.4 L Globulin 5.1 H Albumin/Globulin Ratio 0.2 L - Diagnostic Findings Procedure: Chest x-ray: image reviewed by me, report reviewed by me - EKG EKG results: interpreted by me, no acute changes EKG shows: atrial fibrillation Quality Measures - VTE Contraindication to Mechanical VTE Prophylaxis: Local Inflammation Coco Spencer Dale, MD, personally performed the services described in this documentation, ascribed by Hattie Romero RN in my presence, and it is both accurate and complete [id number] .
[2017-04-27] MEDS: NOREPINEPHRINE 8 MG in SODIUM CHLORIDE 0.9% 242 ML IV SCH (16:32)
[2017-04-27] MEDS: MONTELUKAST 10 MG TABLET PO SCH (21:25)
[2017-04-28] MEDS: ALBUTEROL/IPRATROPIUM 3 ML NEB RESP TX SCH ×4 (01:31→18:55)
[2017-04-28] MEDS: DILTIAZEM 30 MG TABLET PO SCH ×4 (03:06→21:37)
[2017-04-28] MEDS: LACTULOSE 20 GM/30 ML UDCUP PO SCH ×4 (03:06→20:58)
[2017-04-28 03:22] LABS: ABG Base Excess -12.6 MMOL/L (-2.5-2.5); ABG HCO3 14.7 MMOL/L (20-26); ABG Oxygen Saturation 97.8 % (95-100); ABG PCO2 25.8 MM HG (35-48); ABG PH 7.298 (7.35-7.45); ABG PO2 97.7 MM HG (80-95); ABG TCO2 11.4 MMOL/L (23-27); Allen Test Positive
[2017-04-28] MEDS: SODIUM ACETATE IV SCH ×2 (04:20→18:52)
[2017-04-28] MEDS: STERILE WATER IV SCH ×2 (04:20→18:52)
[2017-04-28] MEDS: CEFEPIME 2,000 MG in SODIUM CHLORIDE 0.9% 100 ML IV SCH ×2 (04:23→17:26)
[2017-04-28 05:13] LABS: Basophils # 0.1 10*3/uL (0.0-0.2); Basophils % 0.9 % (0.0-0.8); Eosinophils # 0.2 10*3/uL (0.0-0.87); Eosinophils % 2.1 % (0.00-10.9); Hematocrit 33.5 VOL% (35.7-47.0); Hemoglobin 10.9 GM/DL (12.0-16.0); Immature Granulocytes % 0.8 %; Immature Granulocytes Absolute 0.09 #; Mean Corpuscular HGB Conc 32.5 GM/DL (32-36); Mean Corpuscular Hemoglobin 34 PG (27-34); Mean Corpuscular Volume 103.1 FL (87-102); Mean Platelet Volume 10.4 FL (9.6-12.0); Monocytes # 1.5 10*3/uL (0.11-0.8); Monocytes % 13.1 % (1.7-12.7); NRBC # 0.03 10*3/uL; Neutrophils # 8.3 10*3/uL (1.4-7.4); Neutrophils % 74.1 % (38.7-73.9); Red Blood Count 3.25 MC/CUMM (3.8-5.5); White Blood Count 11.2 T/CUMM (4-12)
[2017-04-28 05:14] LABS: Platelet Count 74 T/CUMM (130-400)
[2017-04-28 05:39] LABS: Hypochromasia 1+; Platelet Estimate Decreased
[2017-04-28 05:40] LABS: Macrocytosis Slight
[2017-04-28 05:49] LABS: Calcium 8.3 MG/DL (8.5-10.1); Osmolality,Calculated 299.6 MOS/KG (273-304); Potassium 3.3 MMOL/L (3.5-5.1)
[2017-04-28] MEDS: POTASSIUM CHLORIDE RIDER 20 MEQ in PREMIX 1 EACH IV PRN ×2 (06:44→08:45)
--- NOTE | 2017-04-28 07:02 | Nephrology Progress Note ---
Nephrology - PN: Subj Interval history: Patient remains somewhat obtunded. She did not open her eyes or have any verbal interaction during the exam. Physical exam general the patient chronically ill-appearing, heart is regular rate and rhythm, she has 1+ pretibial edema, abdomen is obese with high-pitched tinkling bowel sounds lungs are clear to auscultation anteriorly, neuro-see above Assessment/plan 1. Acute renal failure-the patient's creatinine is increased to 1.6 mg/dL, her urine output was about 1700 cc yesterday we will continue to monitor this 2. Metabolic acidosis-this is improved moderately with sodium acetate in her IV fluids 3. Ileus-this patient's abdominal x-ray shows a distended colon and has high pitched bowel sounds, I am going to consult dietary to start her on TPN 4. Hepatitis C Exam (PN)-Nephrology - Vital Signs Vital signs: Period Temp Pulse Resp BP Sys/Eagle Pulse Ox Last 24 Hr 97.0 F-99.0 F 62-108 13-25 76-133/35-114 95-100 - Lab 04/28/17 04:40 04/28/17 04:40 Most recent lab results ABG pH 7.298 (7.35-7.45) L 04/28/17 03:15 ABG pCO2 25.8 MM HG (35-48) L 04/28/17 03:15 ABG pO2 97.7 MM HG (80-95) H 04/28/17 03:15 ABG HCO3 14.7 MMOL/L (20-26) L 04/28/17 03:15 ABG O2 Saturation 97.8 % (95-100) 04/28/17 03:15 Calcium 8.3 MG/DL (8.5-10.1) L 04/28/17 04:40 Magnesium 2.0 MG/DL (1.8-2.4) 04/28/17 04:40 Assessment and Plan (1) Metabolic acidosis Status: Acute Assessment and plan: Patient has a non-anion gap metabolic acidosis this may be related to her renal insufficiency and liver failure, I will start her on a bicarb infusion. Current Visit: Yes (2) Dysphagia Status: Acute Current Visit: Yes (3) Hepatic encephalopathy Status: Acute Assessment and plan: Continue Chronulac Current Visit: Yes (4) History of spinal abscess Status: Acute Current Visit: Yes (5) Renal insufficiency Status: Acute Assessment and plan: Patient's creatinine is been drifting up slightly the past couple of days, patient appears adequately volume resuscitated. Current Visit: Yes (6) Urinary tract infection Status: Acute Current Visit: Yes (7) Hypotension Status: Resolved Assessment and plan: Patient is presently off pressor support Current Visit: Yes (8) Thrombocytopenia Status: Acute Current Visit: No (9) Atrial fibrillation Status: Chronic Current Visit: No (10) Anemia Status: Acute Assessment and plan: This is mild patient's hematocrit is 32% Current Visit: Yes (11) Bowel dysfunction Status: Acute Assessment and plan: On exam this patient has a mildly distended abdomen with high-pitched bowel sounds, worried that she may be developing an obstruction or ileus. I am going to check an abdominal x-ray Current Visit: Yes
[2017-04-28] MEDS: DESITIN 4OZ/NYSTATIN 15 GRAM MIXTURE PASTE TOP SCH ×2 (07:35→21:38)
[2017-04-28] MEDS: NYSTATIN CREAM 15 GM TUBE TOP SCH ×3 (07:35→21:38)
[2017-04-28] MEDS: FUROSEMIDE 40 MG TABLET PO SCH ×2 (09:35→21:37)
[2017-04-28] MEDS: LEVOTHYROXINE 75 MCG TABLET PO SCH (09:35)
[2017-04-28] MEDS: LACTOBACILLUS ACIDOPHILUS/BULGARICUS CAPLET PO SCH (09:35)
[2017-04-28] MEDS: LANSOPRAZOLE ODT 30 MG TABLET PO SCH (09:36)
[2017-04-28] MEDS: METOPROLOL TARTRATE 25 MG TABLET PO SCH ×2 (09:36→21:37)
[2017-04-28] MEDS: SPIRONOLACTONE 50 MG TABLET PO SCH (09:36)
[2017-04-28] MEDS: FLUCONAZOLE 200 MG TABLET PO SCH (09:36)
[2017-04-28] MEDS: ALLOPURINOL 300 MG TABLET PO SCH (09:36)
[2017-04-28] MEDS: INSULIN GLARGINE 100 UNIT/ML SUBCUT SCH ×2 (09:37→21:37)
[2017-04-28] MEDS: POTASSIUM CHLORIDE 20 MEQ/15 ML UDCUP PO SCH (09:37)
[2017-04-28] MEDS: INSULIN REGULAR 100 UNIT/ML SUBCUT SCH ×5 (09:37→18:02)
[2017-04-28] MEDS: APIXABAN 5 MG TABLET PO SCH ×2 (09:38→20:58)
[2017-04-28] MEDS: DIGOXIN 0.25 MG TABLET PO SCH (13:48)
[2017-04-28] MEDS: FAT EMULSION 20% 250 ML IV SCH (13:48)
[2017-04-28] MEDS: NOREPINEPHRINE 8 MG in SODIUM CHLORIDE 0.9% 242 ML IV SCH (14:20)
--- NOTE | 2017-04-28 14:26 | Hospitalist Progress Note ---
Assessment and Plan - Time spent with patient Time spent with patient: Greater than 30 minutes (1) Sepsis Status: Acute Assessment and plan: April 28, 2017: 03/27/2017 blood cultures grew pseudomonas aeruginosa. Patient also had a paraspinous abscess. She was transferred to [facility] for evaluation possibly requiring neurosurgical drainage. Medical management was recommended and patient was discharged home. 3 days after that discharge patient returned to this hospital for treatment of continuing sepsis. Repeat blood cultures 2016 no growth. 04/23/2017 urine culture grew VRE. Patient is receiving daptomycin and cefepime as directed by ID bank consultant. Patient has received adequate fluid resuscitation. She continues to require IV pressor agents for blood pressure support (Currently receiving Levophed). Current Visit: Yes Qualifiers: Qualified Code(s): A41.52 - Sepsis due to Pseudomonas (2) Encephalopathy Problem details: 04/28/2017: Patient remains unresponsive. She does not seem to recognize family members. She does not respond to verbal or tactile stimulation. She is not receiving sedative-hypnotic medications. I discontinued Seaview to minimize medication effect influencing patient's unresponsive state. Patient may have a component of hepatic encephalopathy. Serum ammonia level measured 41 then 32 on 04/25/2017 and 04/27/2017 respectively. Status: Acute Current Visit: Yes (3) Ileus Status: Acute Assessment and plan: Patient has hypoactive bowel sounds and no recorded stool output for the past several days. TPN ordered by consulting weekend caregiver. Monitor for fungal infection. Patient is already receiving Diflucan empirically. Current Visit: Yes (4) HCAP (healthcare-associated pneumonia) Status: Acute Assessment and plan: 04/28/2017: 04/27/2017 chest x-ray reported right lung base haziness with bibasilar atelectasis. Patient is unable to cough up a sputum sample. Cefepime prescribed for recent Pseudomonas aeruginosa infection and should also provide adequate coverage for suspected HCAP. Patient is unable to participate in cough and deep breathing exercises or incentive spirometry. Her immobile state increases her risk of pneumonia, pressure-point skin ulcers, and DVT complications. Current Visit: Yes (5) Hypothyroid Status: Chronic Assessment and plan: Patient received 75 mcg supplemental Synthroid daily. 04/25/2017 TSH measured 0.28 with free T4 1.38. Continue current Synthroid dose. Repeat labs within the next 3 months titrate Synthroid dose accordingly. Current Visit: Yes (6) Venous stasis ulcer with edema of lower leg Status: Acute Assessment and plan: Consulting infectious disease specialist does not believe that surface cultures of these ulcers represent true infection. Bacterial growth from swab of ulcer surface more likely represents colonization but not true infection. Continue topical wound care. Appreciate assistance from hospital wound nurse specialist. Current Visit: Yes (7) Diabetes mellitus type II, controlled Status: Acute Assessment and plan: TPN to begin today. Patient may require low-dose insulin addition to TPN. Continue bedside glucose monitoring with regular insulin sliding scale protocol coverage. 04/23/2017 hemoglobin A1c measured 4.7% Current Visit: Yes (8) Paroxysmal atrial fibrillation Status: Acute Assessment and plan: Patient has intermittent rapid ventricular response related to paroxysmal atrial fibrillation. Digoxin offered to slow ventricular rate without decreasing systemic blood pressure. Because of patient's underlying hypotensive state usual beta-shirin and negative chronotropic calcium antagonist cannot be used to effectively control RVR. Current Visit: Yes (9) Chronic hepatitis C with cirrhosis Status: Acute Assessment and plan: No specific treatment required at present. Current Visit: Yes (10) Chronic diastolic (congestive) heart failure Status: Acute Assessment and plan: 04/28/2017: Echocardiogram 04/23/2017 reported LVEF 60% with moderate to severe tricuspid regurgitation pulmonary artery pressure 40 mmHg. Chronic volume overload required to manage sepsis and hypotension. Current Visit: Yes (11) Acute kidney injury Status: Acute Assessment and plan: 04/28/2017: BUN/creatinine 30 and 1.6 respectively today. GFR calculates 36 Current Visit: Yes (12) Hypokalemia Status: Acute Assessment and plan: Supplements ordered, recheck BMP and a.m. electrolytes may be corrected by adjustments within TPN formula. Current Visit: Yes (13) Thrombocytopenia Status: Acute Assessment and plan: 04/28/2017: Patient is not receiving heparin products for DVT prophylaxis. She receives systemic anticoagulation with Eliquis daily dose. Current Visit: No (14) Anisocoria Status: Acute Assessment and plan: 04/28/2017: I am uncertain how long patient's pupil diameter has been asymmetric. Today her left pupil measures approximately 5 mm while her right pupil is smaller at approximately [address] considered but results would not like alter current management. Continue monitoring neuro exam. Current Visit: Yes Hospitalist: Subjective Interval history: Patient is unresponsive to verbal stimulation or light touch. I met with patient's sister and daughter and family conference room today (25 minutes). They agree that patient is less responsive and does not recognize them or respond to them either. Advanced directives reviewed. Patient's family requests that patient continue to receive aggressive care but request DNR DNI CODE STATUS. Exam - Constitutional Vitals: Period Temp Pulse Resp BP Sys/Eagle Pulse Ox Last 24 Hr 97.0 F-98.1 F 62-88 13-22 76-115/35-67 96-100 General appearance: over weight - Head Head exam: Present: normocephalic - Eye Pupils: Present: unequal (Left pupil 5 mm, right pupil approximately 3 mm) - Neck Neck exam: Absent: meningismus - Respiratory Respiratory exam: Present: decreased breath sounds. Absent: rales - Cardiovascular Cardiovascular exam: Present: regular rate and rhythm - GI/Abdominal GI/Abdominal exam: Present: distended, hypoactive bowel sounds, other (Obese). Absent: tenderness, rebound - Extremities Exam Extremities exam: Present: other (Right bicep area PICC line insertion site clean and dry without surrounding acute inflammatory changes) - Neurological Exam Neurological exam: Present: altered, other (Somnolent and unresponsive to verbal stimulation or light touch) - Psychiatric Psychiatric exam: Present: other (Unresponsive) - Skin Skin exam: Present: other (Right anterior mid tibia ulcer, left lateral mid tibia ulcer, sacral ulcer) Results - Labs CBC & BMP: 04/28/17 04:40 04/28/17 04:40 - Diagnostic Findings Procedure: Abdominal x-ray: other (KUB yesterday report mild to moderate gaseous distention possibly suggesting ileus. Calcified uterine leiomyoma) Quality Measures - VTE Contraindication to Mechanical VTE Prophylaxis: Local Inflammation Sepsis - Physical Exam Respiratory exam: decreased breath sounds Capillary Refill: Greater Than 3 Seconds Peripheral pulses: Radial (L): 1+ Cardiovascular exam: regular rate and rhythm (Senile purpura with stasis dermatitis changes also)
--- NOTE | 2017-04-28 14:49 | Cardiology Progress Note ---
Nick Spencer Vanessa, RN, am scribing for, and in the presence of, David Sepulveda MD 14:49. Assessment and Plan - Time spent with patient Time spent with patient: Greater than 30 minutes (1) Atrial fibrillation Status: Chronic Assessment and plan: 71-year-old white female with history of chronic atrial fibrillation, hypothyroidism, hepatitis C, cirrhosis, chronic edema, chronic venous insufficiency. She is admitted to ICU for treatment of urosepsis and has had hypotension and episode of RVR. There is question for CHF. Echo on 04/23 with preserved LV systolic function, mild pulmonary hypertension, and severe TR. April ASSESSMENT/PLAN: 1. ATRIAL FIBRILLATION - Chronic. Ventricular response controlled this AM. No further RVR overnight & was most likely related to sepsis. 2. HYPOTENSION- Improved this morning. IV vasopressor has been weaned off. Monitor closely and can reintroduce BB. 3. UTI- Appropriate IV antibiotic therapy. Infectious diseases medicine has also been following. 5. CHF- Preserved LV systolic function, severe TR per echo. Appears overall compensated at this time. Continue Lasix, spironolactone. Monitor BMP daily. 6. CHRONIC ANTICOAGULATION- Chronically anticoagulated with Eliquis. No overt S /S bleeding. 7. THROMBOCYTOPENIA- PLTs 58,000 this morning. Review of old records show this may be ongoing issue. Platelet count as low as 32,000 during hospital admission October 2016. 8. DIABETES- Continue current plan of care. Defer primary management to attending. 9. CHRONIC VENOUS INSUFFICIENCY- Venous statis ulcers of BLE's without appearance of infection. Surgical services has evaluated also & no indication for surgical intervention at this point. 10. ACUTE KIDNEY INJURY - Improved since admission with IV hydration. Creatinine & BUN 1.3/47. Monitor BMP daily. Avoiding GEOFFREY-I or ARB for fear of worsening renal function. jose alberto--04/27/17: Continue control A. fib with digoxin added. Her hypotension resolved with fluids and treatment of her infection. However, low CO2 and elevated lactate lactose lactic acid, suggest some ongoing sepsis/infection. ID is helping treat. Diastolic heart failure is being treated with medications Chronic anticoagulation/prevent a stroke, no evidence of recurrence of paraspinal abscess. April ASSESSMENT/PLAN: 1. ATRIAL FIBRILLATION-chronic. Ventricular response remains overall well controlled. Continue PO Cardizem and digoxin. Anticoagulated with Eliquis for stroke prevention. 2. HYPOTENSION-IV Levophed restarted last night for SBP 70s, MAP <60. 3. UTI-appropriate antibiotic treat per ID medicine. 4. CHF-continue current plan of care. Monitor BMP daily. 5. CHRONIC ANTICOAGULATION-continue Eliquis 5 mg PO twice daily. No overt bleeding at this time. Monitor closely. 6. THROMBOCYTOPENIA-improved today to 74,000. 7. DIABETES-continue current plan of care. Defer management to attending physician. 8. CHRONIC VENOUS INSUFFICIENCY-wound care is addressing ulcers of bilateral lower extremities. Surgical intervention is not indicated at this time. 9. ACUTE KIDNEY INJURY-this has improved since admission but creatinine trending upward again this morning to 1.6. Continue IV hydration. Follow-up BMP in AM. Avoid GEOFFREY inhibitors/ARBS and nephrotoxic agents as able. 10. HYPOKALEMIA-K+ 3.3. Continue PO supplement and repletion per PRN IV protocol. Recheck K+ in AM. 04/28/17 Holding Eliquis because some bleeding through the [place] and also hemorrhoid bleeding Has cirrhosis and multiple organ problems I conferred care with the patient's nurse. She plans to discuss with the hospitalist about comfort care. I agree with that plan Her A. fib is controlled Metabolic acidosis is slightly better Umbilical hernia finding is noted Prognosis remains guarded Replete potassium per protocol. Current Visit: No (2) Urinary tract infection Status: Acute Assessment and plan: SEE PLAN OF CARE LISTED ABOVE. Current Visit: Yes (3) Hypotension Status: Resolved Assessment and plan: SEE PLAN OF CARE LISTED ABOVE. Current Visit: Yes (4) Chronic anticoagulation Status: Chronic Assessment and plan: SEE PLAN OF CARE LISTED ABOVE. Current Visit: Yes (5) History of spinal abscess Status: Acute Current Visit: Yes (6) Venous stasis ulcer Status: Chronic Assessment and plan: SEE PLAN OF CARE LISTED ABOVE. Current Visit: Yes (7) Thrombocytopenia Status: Acute Assessment and plan: SEE PLAN OF CARE LISTED ABOVE. Current Visit: No (8) Hypothyroid Status: Chronic Assessment and plan: SEE PLAN OF CARE LISTED ABOVE. Current Visit: Yes (9) Hypokalemia Status: Acute Assessment and plan: SEE PLAN OF CARE LISTED ABOVE. Current Visit: Yes Cardiology - PN: Subj Interval history: PRIMARY CONSULTING SALES MANAGER: DR. LOPEZ SUMMARY: 71 year old WF, risk factors significant for: age, obesity, diabetes. Past medical history includes chronic atrial fibrillation, hypothyroidism, hepatitis C with liver cirrhosis, chronic venous insufficiency, and asthma. Patient was admitted by hospital medicine to [facility] on 04/23 with significant hypotension, altered mental status, acute kidney injury, and urosepsis after being discharged from [facility] 3 days prior after admission and treatment for paraspinal abscess. She was discharged from [facility] with PICC line for IV antibiotic therapy. Ulcerated wounds of bilateral lower extremities and buttock also. Urine and would culture positive for enterococcus faecalis VRE. Patient is also thrombocytopenic, PLT's down to 58,000. Chest x-ray on 04/26 showed some mild to moderate CHF. Cardiology was consulted for CHF and chronic atrial fibrillation with episode of RVR. Echo on 04/23 for normal LV size and systolic function, EF 60%, severe TR. April: Ms. Miller remains in ICU this morning under close observation. No acute distress this morning. IV Levophed had to be restarted last night due to SBP 70s. Blood pressure at time of exam 106/46. Atrial fibrillation with controlled ventricular response in 80s. Metabolic acidosis being treated and has improved somewhat with IV sodium acetate. ABD x-ray with mild to moderate gaseous distention of bowel, suspicious for ileus. Hospital record from [facility] and 12/2016 reviewed. Noted during that admission she was treated for small bowel obstruction and ileus. Exam (Progress Note) - Constitutional Vitals: Period Temp Pulse Resp BP Sys/Eagle Pulse Ox Last 24 Hr 97.0 F-98.1 F 62-104 13-23 76-133/35-114 95-100 Exam: General: Present: No Apparent Distress, overweight HEENT: Present: Mucus Membranes Moist Neck: Present: No JVD/HJR Cardiac: Present: Irregularly Regular, Systolic Murmur. No bradycardia. Lungs: Present: Clear Ascult./Percussion. No wheeze, rhonchi. Neuro: Present: Other (Confused. Does not follow commands, open eyes, interact. Moans, and random words) Abdomen: Present: Soft, hyperactive bowel sounds, protuberant. No tenderness. Skin: Present: Other (Chronic venous stasis of BLE's. Ulcers of BLE with dry/ intact dressing). No cyanosis, diaphoresis. Extremities: Present: No Clubbing, +3 Edema. Result/EKG - Labs CBC & BMP: 04/28/17 04:40 04/28/17 04:40 Lab Results: I have reviewed the past 24 hour labs Labs: Laboratory Results - last 24 hr 04/27/17 04/27/17 04/27/17 11:51 15:12 20:01 WBC RBC Hgb Hct MCV MCH MCHC RDW Plt Count MPV Neut % (Auto) Lymph % (Auto) Osborne % (Auto) Eos % (Auto) Baso % (Auto) Neut # (Auto) Lymph # (Auto) Osborne # (Auto) Eos # (Auto) Baso # (Auto) Immature Gran % Nucleated RBC % Immature Gran # Nucleated RBCs # Platelet Estimate Immature Plt Fraction Hypochromasia Macrocytosis Morphology Comment ABG pH ABG pCO2 ABG pO2 ABG HCO3 ABG Total CO2 ABG O2 Saturation ABG Base Excess FiO2 Sodium Potassium Chloride Carbon Dioxide Anion Gap BUN Creatinine GFR Calculation BUN/Creatinine Ratio Glucose POC Glucose 196 H 203 H 173 H Calculated Osmolality Calcium Magnesium Total Creatine Kinase Thyroxine (T4) 04/28/17 04/28/17 04/28/17 03:15 04:40 04:40 WBC RBC Hgb Hct MCV MCH MCHC RDW Plt Count MPV Neut % (Auto) Lymph % (Auto) Osborne % (Auto) Eos % (Auto) Baso % (Auto) Neut # (Auto) Lymph # (Auto) Osborne # (Auto) Eos # (Auto) Baso # (Auto) Immature Gran % Nucleated RBC % Immature Gran # Nucleated RBCs # Platelet Estimate Immature Plt Fraction Hypochromasia Macrocytosis Morphology Comment ABG pH 7.298 L ABG pCO2 25.8 L ABG pO2 97.7 H ABG HCO3 14.7 L ABG Total CO2 11.4 L ABG O2 Saturation 97.8 ABG Base Excess -12.6 L FiO2 28.00 Sodium Potassium Chloride Carbon Dioxide Anion Gap BUN Creatinine GFR Calculation BUN/Creatinine Ratio Glucose POC Glucose Calculated Osmolality Calcium Magnesium Total Creatine Kinase 18 L Thyroxine (T4) 5.0 04/28/17 04/28/17 04:40 04:40 WBC 11.2 D RBC 3.25 L Hgb 10.9 L Hct 33.5 L MCV 103.1 H MCH 34 MCHC 32.5 RDW 23.0 H Plt Count 74 L D MPV 10.4 Neut % (Auto) 74.1 H Lymph % (Auto) 9.0 L Osborne % (Auto) 13.1 H Eos % (Auto) 2.1 Baso % (Auto) 0.9 H Neut # (Auto) 8.3 H Lymph # (Auto) 1.0 L Osborne # (Auto) 1.5 H Eos # (Auto) 0.2 Baso # (Auto) 0.1 Immature Gran % 0.8 Nucleated RBC % 0.3 Immature Gran # 0.09 Nucleated RBCs # 0.03 Platelet Estimate Decreased Immature Plt Fraction 1.5 Hypochromasia 1+ Macrocytosis Slight Morphology Comment ABG pH ABG pCO2 ABG pO2 ABG HCO3 ABG Total CO2 ABG O2 Saturation ABG Base Excess FiO2 Sodium 146 H Potassium 3.3 L Chloride 121 H Carbon Dioxide 12 L Anion Gap 16.3 H BUN 30 H Creatinine 1.60 H GFR Calculation 36 BUN/Creatinine Ratio 18.00 Glucose 174 H POC Glucose Calculated Osmolality 299.6 Calcium 8.3 L Magnesium 2.0 Total Creatine Kinase Thyroxine (T4) - EKG EKG results: interpreted by me, no acute changes EKG shows: atrial fibrillation Quality Measures - VTE Contraindication to Mechanical VTE Prophylaxis: Local Inflammation I, David Sepulveda MD, personally performed the services described in this documentation, ascribed by Hattie Romero RN in my presence, and it is both accurate and complete [id number] .
--- NOTE | 2017-04-28 14:50 | Infectious Disease Progress ---
Assessment and Plan (1) History of spinal abscess Status: Acute Assessment and plan: Most likely due to Pseudomonas which was isolated from her blood cultures last mth. Continue cefepime; dose already adjusted for renal function over the weekend. I did look at some of the records from [facility] but I did not see any mention of spinal abscess. She was there in December for sepsis. Current Visit: Yes (2) Hypotension Status: Resolved Assessment and plan: Multifactorial, blood cultures were negative. Current Visit: Yes (3) Renal insufficiency Status: Acute Assessment and plan: A bit worse today Current Visit: Yes (4) Severe sepsis Status: Acute Assessment and plan: Only new infection identified is UTI due to VRE. She is on daptomycin and will be continued on cefepime for the presumed Pseudomonas spinal abscess. Overall prognosis is poor given her decline over the past couple of days. Consider comfort care. Current Visit: Yes (5) Venous stasis ulcer Status: Chronic Assessment and plan: Culture swabs none of these ulcers came up positive but this represents colonization rather than actual infection of these ulcers. Continue local wound care and no specific antibiotics for these wounds. Current Visit: Yes (6) Bacteremia Status: Acute Assessment and plan: Last mth had Pseudomonas septicemia. Blood cultures on this admission negative. Patient will continue cefepime for previous Pseudomonas spinal infection. Current Visit: No (7) Urinary tract infection Status: Acute Assessment and plan: Continue daptomycin for VRE, 6 more days of therapy left. Current Visit: Yes Infectious Disease - PN: Subj Interval history: Patient seen and examined this morning. She is not doing well at all, had to be put back on pressors. She is unresponsive. Infectious Disease Exam (PN) - Constitutional Vitals: Temp Pulse Resp BP Pulse Ox 98.1 F 77 21 96/59 100 04/28/17 04:00 04/28/17 13:48 04/28/17 12:22 04/28/17 09:36 04/28/17 12:22 General appearance: over weight Exam: GEN: Unresponsive HEENT: pale mucosa RS: Occasional transmitted sound CVS: normal S1 and S2, no murmurs ABD: protuberant, non-tender EXTREMITIES: chronic venous stasis changes with pink shallow ulcer to lateral left leg without surrounding induration or erythema. Mild edema to both legs. Results - Labs CBC & BMP: 04/28/17 04:40 04/28/17 04:40 Lab Results: I have reviewed the past 24 hour labs (Blood cultures negative 2 sets) Quality Measures - VTE Contraindication to Mechanical VTE Prophylaxis: Local Inflammation
[2017-04-28] MEDS: GENTAMICIN 0.1% CREAM 15 GM TUBE TOP SCH (15:55)
[2017-04-28] MEDS ORDERED: DEXTROSE 10% 1,000 ML IV PRN (17:00)
[2017-04-28] MEDS ORDERED: TRACE ELEMENTS (5) 1 ML, MULTIVITAMIN INJ 10 ML, INSULIN REGULAR 20 UNIT in AMINO ACIDS... IV SCH (17:00)
[2017-04-28] MEDS: MONTELUKAST 10 MG TABLET PO SCH (21:37)
[2017-04-29] MEDS: STERILE WATER IV SCH ×2 (00:04→09:57)
[2017-04-29] MEDS: SODIUM ACETATE IV SCH ×2 (00:04→09:57)
[2017-04-29] MEDS: INSULIN REGULAR 100 UNIT/ML SUBCUT SCH ×4 (00:19→18:51)
[2017-04-29] MEDS: ALBUTEROL/IPRATROPIUM 3 ML NEB RESP TX SCH ×4 (00:59→19:02)
[2017-04-29] MEDS: CEFEPIME 2,000 MG in SODIUM CHLORIDE 0.9% 100 ML IV SCH ×2 (04:18→16:58)
[2017-04-29] MEDS: DILTIAZEM 30 MG TABLET PO SCH ×4 (04:18→21:44)
[2017-04-29] MEDS: LACTULOSE 20 GM/30 ML UDCUP PO SCH ×4 (04:18→21:44)
[2017-04-29] MEDS: NOREPINEPHRINE 8 MG in SODIUM CHLORIDE 0.9% 242 ML IV SCH ×2 (04:21→18:35)
[2017-04-29 05:38] LABS: Basophils # 0.2 10*3/uL (0.0-0.2); Basophils % 1.1 % (0.0-0.8); Eosinophils # 0.4 10*3/uL (0.0-0.87); Eosinophils % 2.6 % (0.00-10.9); Hematocrit 35.6 VOL% (35.7-47.0); Hemoglobin 11.6 GM/DL (12.0-16.0); Immature Granulocytes % 0.9 %; Immature Granulocytes Absolute 0.14 #; Lymphocytes # 1.4 10*3/uL (1.4-4.0); Lymphocytes % 8.8 % (21.3-54.2); Mean Corpuscular HGB Conc 32.6 GM/DL (32-36); Mean Corpuscular Hemoglobin 34 PG (27-34); Mean Corpuscular Volume 102.9 FL (87-102); Mean Platelet Volume 10.5 FL (9.6-12.0); Monocytes # 2.4 10*3/uL (0.11-0.8); Monocytes % 15.1 % (1.7-12.7); NRBC # 0.08 10*3/uL; Neutrophils # 11.2 10*3/uL (1.4-7.4); Neutrophils % 71.5 % (38.7-73.9); Platelet Count 101 T/CUMM (130-400); Red Blood Count 3.46 MC/CUMM (3.8-5.5); Red Cell Distribution Width 23.3 % (9.3-17.3); White Blood Count 15.6 T/CUMM (4-12)
[2017-04-29 06:09] LABS: Hypochromasia 1+
[2017-04-29 06:10] LABS: Giant Platelets Few; Macrocytosis Slight; Platelet Estimate Decreased
[2017-04-29 06:15] LABS: Magnesium 1.9 MG/DL (1.8-2.4); Phosphorous 1.9 MG/DL (2.5-4.9); Prealbumin 10.5 MG/DL (20-40)
[2017-04-29 06:18] LABS: Calcium 8.1 MG/DL (8.5-10.1); Osmolality,Calculated 299.1 MOS/KG (273-304); Potassium 3.6 MMOL/L (3.5-5.1)
[2017-04-29] MEDS: POTASSIUM CHLORIDE RIDER 20 MEQ in PREMIX 1 EACH IV PRN (06:41)
[2017-04-29] MEDS: SPIRONOLACTONE 50 MG TABLET PO SCH (09:54)
[2017-04-29] MEDS: LACTOBACILLUS ACIDOPHILUS/BULGARICUS CAPLET PO SCH (09:54)
[2017-04-29] MEDS: LEVOTHYROXINE 75 MCG TABLET PO SCH (09:55)
[2017-04-29] MEDS: METOPROLOL TARTRATE 25 MG TABLET PO SCH ×2 (09:55→21:37)
[2017-04-29] MEDS: LANSOPRAZOLE ODT 30 MG TABLET PO SCH (09:55)
[2017-04-29] MEDS: FUROSEMIDE 40 MG TABLET PO SCH ×2 (09:55→21:34)
[2017-04-29] MEDS: FLUCONAZOLE 200 MG TABLET PO SCH (09:55)
[2017-04-29] MEDS: INSULIN GLARGINE 100 UNIT/ML SUBCUT SCH (09:56)
[2017-04-29] MEDS: POTASSIUM CHLORIDE 20 MEQ/15 ML UDCUP PO SCH (09:56)
[2017-04-29] MEDS: ALLOPURINOL 300 MG TABLET PO SCH (09:56)
[2017-04-29] MEDS: APIXABAN 5 MG TABLET PO SCH ×2 (09:57→21:44)
[2017-04-29] MEDS: NYSTATIN CREAM 15 GM TUBE TOP SCH ×3 (11:20→21:46)
[2017-04-29] MEDS: DESITIN 4OZ/NYSTATIN 15 GRAM MIXTURE PASTE TOP SCH ×2 (11:20→21:43)
[2017-04-29] MEDS: GENTAMICIN 0.1% CREAM 15 GM TUBE TOP SCH (11:20)
--- NOTE | 2017-04-29 11:34 | Infectious Disease Progress ---
Assessment and Plan (1) History of spinal abscess Status: Resolved Assessment and plan: Most likely due to Pseudomonas which was isolated from her blood cultures last mth. Continue cefepime; overall prognosis dismal. Current Visit: Yes (2) Hypotension Status: Acute Assessment and plan: Multifactorial, requiring vasopressor support. Blood cultures were negative. Current Visit: Yes (3) Renal insufficiency Status: Acute Current Visit: Yes (4) Severe sepsis Status: Acute Assessment and plan: Only new infection identified is UTI due to VRE. She is on daptomycin and will be continued on cefepime for the presumed Pseudomonas spinal abscess. Overall prognosis is poor given her continued decline over the past couple of days. Current Visit: Yes (5) Venous stasis ulcer Status: Chronic Assessment and plan: Culture swabs none of these ulcers came up positive but this represents colonization rather than actual infection of these ulcers. Continue local wound care and no specific antibiotics for these wounds. Current Visit: Yes Qualifiers: Venous stasis ulcer site: calf (6) Bacteremia Status: Acute Assessment and plan: Last mth had Pseudomonas septicemia. Blood cultures on this admission negative. Patient will continue cefepime for previous Pseudomonas spinal infection. Current Visit: No (7) Urinary tract infection Status: Acute Assessment and plan: Continue daptomycin for VRE, 5 more days of therapy left. Current Visit: Yes Infectious Disease - PN: Subj Interval history: Patient continues to do poorly, still on vasopressors. She had a generalized tonic-clonic seizure this morning and is now on IV of Keppra. She remains unresponsive. Apparently after discussion with primary team and family yesterday patient was made comfort measures although we are still treating with antibiotics and other medications. Infectious Disease Exam (PN) - Constitutional Vitals: Temp Pulse Resp BP Pulse Ox 98.6 F 76 24 91/52 97 04/29/17 08:00 04/29/17 09:00 04/29/17 09:00 04/29/17 09:00 04/29/17 09:00 General appearance: over weight Exam: GEN: Unresponsive but with involuntary myoclonus of upper extremities and twitching of face HEENT: pale mucosa RS: No crepitations or wheezes CVS: normal S1 and S2, no murmurs ABD: protuberant, non-tender EXTREMITIES: chronic venous stasis changes with pink shallow ulcer to lateral left leg without surrounding induration or erythema. Mild edema to both legs. Results - Labs CBC & BMP: 04/29/17 03:54 04/29/17 03:54 Lab Results: I have reviewed the past 24 hour labs Quality Measures - VTE Contraindication to Mechanical VTE Prophylaxis: Local Inflammation
--- NOTE | 2017-04-29 13:23 | Hospitalist Progress Note ---
Assessment and Plan - Time spent with patient Time spent with patient: Greater than 30 minutes (1) Sepsis Status: Acute Assessment and plan: April 28, 2017: 03/27/2017 blood cultures grew pseudomonas aeruginosa. Patient also had a paraspinous abscess. She was transferred to [facility] for evaluation possibly requiring neurosurgical drainage. Medical management was recommended and patient was discharged home. 3 days after that discharge patient returned to this hospital for treatment of continuing sepsis. Repeat blood cultures 2016 no growth. 04/23/2017 urine culture grew VRE. Patient is receiving daptomycin and cefepime as directed by ID teamcenter consultant. Patient has received adequate fluid resuscitation. She continues to require IV pressor agents for blood pressure support (Currently receiving Levophed). 04/29/2017: Nursing staff reports that patient experienced 3 or 4 minutes of generalized tonic-clonic seizure activity earlier today. I added Keppra dose IV twice daily and consulted neurologist. Patient's prognosis remains poor. Patient currently receives cefepime treatment for pseudomonas aeruginosa SPOKE MAKER infection. She receives daptomycin for VRE UTI. She continues to require Levophed for blood pressure support. She also receives empiric Diflucan therapy. Current Visit: Yes Qualifiers: Qualified Code(s): A41.52 - Sepsis due to Pseudomonas (2) Encephalopathy Problem details: 04/29/2017: Patient remains unresponsive. She does not seem to recognize family members. She does not respond to verbal or tactile stimulation. She is not receiving sedative-hypnotic medications. I discontinued [place] to minimize medication effect influencing patient's unresponsive state. Patient may have a component of hepatic encephalopathy. Serum ammonia level measured 41 then 32 on 04/25/2017 and 04/27/2017 respectively. Status: Acute Assessment and plan: 04/29/2017: Patient remains unresponsive as described. Her spontaneous breathing pattern is more irregular and labored today. Current Visit: Yes (3) Ileus Problem details: 04/29/2017: NG suction as required. Patient receives TPN without enteral feedings. Repeat KUB in a.m. Status: Acute Assessment and plan: Patient has hypoactive bowel sounds and no recorded stool output for the past several days. TPN ordered by consulting wardrobe consultant. Monitor for fungal infection. Patient is already receiving Diflucan empirically. 04/29/2017: Hypoactive but present bowel sounds. Abdomen remains distended but is soft. No response to deep palpation. Patient is now receiving TPN with no enteral feedings. Current Visit: Yes (4) HCAP (healthcare-associated pneumonia) Status: Acute Assessment and plan: 04/28/2017: 04/27/2017 chest x-ray reported right lung base haziness with bibasilar atelectasis. Patient is unable to cough up a sputum sample. Cefepime prescribed for recent Pseudomonas aeruginosa infection and should also provide adequate coverage for suspected HCAP. Patient is unable to participate in cough and deep breathing exercises or incentive spirometry. Her immobile state increases her risk of pneumonia, pressure-point skin ulcers, and DVT complications. 04/29/2017: Labored and uneven respiratory pattern noted today. 04/27/2017 KUB changes consistent with ileus. Right nostril NG tube remains in place Current Visit: Yes (5) Hypothyroid Status: Chronic Assessment and plan: Patient received 75 mcg supplemental Synthroid daily. 04/25/2017 TSH measured 0.28 with free T4 1.38. Continue current Synthroid dose. Repeat labs within the next 3 months titrate Synthroid dose accordingly. 04/29/2017: Stable. Patient is receiving 75 mcg Synthroid daily. TSH and free T4 measure within normal range continue same Synthroid dose. Current Visit: Yes (6) Venous stasis ulcer with edema of lower leg Status: Acute Assessment and plan: Consulting infectious disease specialist does not believe that surface cultures of these ulcers represent true infection. Bacterial growth from swab of ulcer surface more likely represents colonization but not true infection. Continue topical wound care. Appreciate assistance from hospital wound nurse specialist. 04/29/2017: Patient has multiple skin tears that weep serosanguineous fluids over each extremity and sacrum. Superficial swab cultures represent colonization less likely true skin infection. Empiric antibiotic therapy as directed by ID teamcenter consultant. Current Visit: Yes (7) Diabetes mellitus type II, controlled Status: Acute Assessment and plan: TPN to begin today. Patient may require low-dose insulin addition to TPN. Continue bedside glucose monitoring with regular insulin sliding scale protocol coverage. 04/23/2017 hemoglobin A1c measured 4.7% 04/29/2017: Fair glucose control. Patient receives Lantus every morning and every afternoon. She also receives sliding scale regular insulin subcutaneously per protocol. TPN contains D10 which will likely increase required supplemental insulin dose. Continue bedside glucose checks. Current Visit: Yes (8) Paroxysmal atrial fibrillation Status: Acute Assessment and plan: Patient has intermittent rapid ventricular response related to paroxysmal atrial fibrillation. Digoxin offered to slow ventricular rate without decreasing systemic blood pressure. Because of patient's underlying hypotensive state usual beta-shirin and negative chronotropic calcium antagonist cannot be used to effectively control RVR. 04/29/2017: Ventricular rate controlled at present receiving daily IV digoxin dose. Check serum digoxin level in a.m. avoid toxicity. Current Visit: Yes (9) Chronic hepatitis C with cirrhosis Status: Acute Assessment and plan: 04/29/2017: No specific treatment required at present. Patient has intermittent elevation of serum ammonia level. This may be a minor component explaining patient's metabolic encephalopathy and unresponsive state. Current Visit: Yes (10) Chronic diastolic (congestive) heart failure Status: Acute Assessment and plan: 04/28/2017: Echocardiogram 04/23/2017 reported LVEF 60% with moderate to severe tricuspid regurgitation pulmonary artery pressure 40 mmHg. Chronic volume overload required to manage sepsis and hypotension. 04/29/2017: Anasarca related to intravascular osmotic pressures and cardiac systolic dysfunction. Volume expansion required as treatment of sepsis and hypotension. Patient still requires Levophed to maintain marginal blood pressure. Current Visit: Yes (11) Acute kidney injury Status: Acute Assessment and plan: 04/28/2017: BUN/creatinine 30 and 1.6 respectively today. GFR calculates 36 04/29/2017: 04/29/2017: Increasing serum BUN and creatinine levels reflect worsening renal dysfunction. GFR 30 today. Patient has intravascular volume depletion with concomitant total body fluid overload. Current Visit: Yes (12) Hypokalemia Status: Resolved Assessment and plan: Supplements ordered, recheck BMP and a.m. electrolytes may be corrected by adjustments within TPN formula. 04/29/2017: Hypokalemia corrected. Patient has normal range serum magnesium level today.. Recheck electrolytes in a.m. Likely related to Lasix and spironolactone effect. Current Visit: Yes (13) Thrombocytopenia Status: Acute Assessment and plan: 04/28/2017: Patient is not receiving heparin products for DVT prophylaxis. She receives systemic anticoagulation with Eliquis daily dose. 04/29/2017: Platelet count increased today compared with yesterday 101,000 versus 74,000 respectively. Recheck CBC in a.m. Patient also receives Eliquis. Monitor for spontaneous bleeding and hemodynamic stability. Current Visit: No (14) Anisocoria Status: Acute Assessment and plan: 04/28/2017: I am uncertain how long patient's pupil diameter has been asymmetric. Today her left pupil measures approximately 5 mm while her right pupil is smaller at approximately [address] considered but results would not like alter current management. Continue monitoring neuro exam. 04/29/2017: Pupil size discrepancy not as prominent today. Head CT not ordered. Patient's clinical status is declining and CT results would not likely alter current treatment options. Current Visit: Yes Hospitalist: Subjective Interval history: 04/29/2017 : Patient's clinical status is worsening. Nursing staff witnessed generalized tonic-clonic activity this a.m. I have added Keppra IV and consulted neurologist. Exam - Constitutional Vitals: Period Temp Pulse Resp BP Sys/Eagle Pulse Ox Last 24 Hr 97.1 F-99.2 F 66-88 16-28 84-151/48-97 93-100 General appearance: over weight - Eye Eye exam: Present: other (Left and right pupil size discrepancy is decreased today compared with yesterday's exam. Left pupil remains slightly larger than right pupil by approximately 1 mm.) - Neck Neck exam: Present: other (No response to passive neck flexion; right nostril NG in place) - Respiratory Respiratory exam: Present: decreased breath sounds, rhonchi, other (; Patient's respiratory pattern is labored and on even.) - Cardiovascular Cardiovascular exam: Present: regular rate and rhythm - GI/Abdominal GI/Abdominal exam: Present: distended, hypoactive bowel sounds, soft (No response to deep palpation) - Extremities Exam Extremities exam: Present: edema (All 4 extremities are edematous) - Neurological Exam Neurological exam: Present: other (Minimally responsive; patient's eyes are closed, she does not speak; she does not respond to verbal input or light touch) Results - Labs CBC & BMP: 04/29/17 03:54 04/29/17 03:54 Quality Measures - VTE Contraindication to Mechanical VTE Prophylaxis: Local Inflammation
--- NOTE | 2017-04-29 13:30 | Nephrology Progress Note ---
Nephrology - PN: Subj Interval history: Patient remains obtunded. Physical exam general patient is chronically ill-appearing, heart is regular rate and rhythm, she has 1+ pretibial edema, lungs are clear to auscultation anteriorly, abdomen is soft with high-pitched intermittent bowel sounds Assessment/plan #1. Acute renal failure-patient's creatinine is increased to 1.9 mg/dL, her urine output has been following off the past 8 hours or so, she is now requiring levo fed for pressor support. We will continue to monitor this 2. Metabolic acidosis-this patient has been getting sodium acetate infusion, since she started TPN I am going to decrease this infusion and increase the acetate in her TPN. 3. Hepatitis C 4. Urinary tract infection continue antibiotics 5. Sepsis Exam (PN)-Nephrology - Vital Signs Vital signs: Period Temp Pulse Resp BP Sys/Eagle Pulse Ox Last 24 Hr 97.1 F-99.2 F 66-88 16-28 84-151/48-97 93-100 - Lab 04/29/17 03:54 04/29/17 03:54 Most recent lab results ABG pH 7.298 (7.35-7.45) L 04/28/17 03:15 ABG pCO2 25.8 MM HG (35-48) L 04/28/17 03:15 ABG pO2 97.7 MM HG (80-95) H 04/28/17 03:15 ABG HCO3 14.7 MMOL/L (20-26) L 04/28/17 03:15 ABG O2 Saturation 97.8 % (95-100) 04/28/17 03:15 Calcium 8.1 MG/DL (8.5-10.1) L 04/29/17 03:54 Phosphorus 1.9 MG/DL (2.5-4.9) L 04/29/17 03:54 Magnesium 2.0 MG/DL (1.8-2.4) 04/29/17 03:54 Assessment and Plan (1) Metabolic acidosis Status: Acute Assessment and plan: Patient has a non-anion gap metabolic acidosis this may be related to her renal insufficiency and liver failure, I will start her on a bicarb infusion. Current Visit: Yes (2) Dysphagia Status: Acute Current Visit: Yes (3) Hepatic encephalopathy Status: Acute Assessment and plan: Continue Chronulac Current Visit: Yes (4) History of spinal abscess Status: Resolved Current Visit: Yes (5) Renal insufficiency Status: Acute Assessment and plan: Patient's creatinine is been drifting up slightly the past couple of days, patient appears adequately volume resuscitated. Current Visit: Yes (6) Urinary tract infection Status: Acute Current Visit: Yes (7) Hypotension Status: Acute Assessment and plan: Patient is presently off pressor support Current Visit: Yes (8) Thrombocytopenia Status: Acute Current Visit: No (9) Atrial fibrillation Status: Chronic Current Visit: No (10) Anemia Status: Acute Assessment and plan: This is mild patient's hematocrit is 32% Current Visit: Yes (11) Bowel dysfunction Status: Acute Assessment and plan: On exam this patient has a mildly distended abdomen with high-pitched bowel sounds, worried that she may be developing an obstruction or ileus. I am going to check an abdominal x-ray Current Visit: Yes
[2017-04-29] MEDS: DIGOXIN 0.25 MG TABLET PO SCH (14:30)
[2017-04-29] MEDS: FAT EMULSION 20% 250 ML IV SCH (14:31)
--- NOTE | 2017-04-29 15:42 | XRay Report ---
Exam: XR KUB Date: 04/29/2017 2:19 PM Comparison: 04/27/2017 Indication: Follow-up ileus Technique:[Supine abdomen] Findings: Reduced gaseous distention of the bowel. Nasogastric tube remains in the stomach. Partially calcified uterine leiomyoma. Degenerative changes noted. Prior cholecystectomy. Impression: Reduced gaseous distention of the bowel which could be related improved ileus. However if symptoms persist, continued follow-up x-ray may be helpful for further evaluation. Nasogastric tube projects in the stomach. Partially calcified uterine leiomyoma. Prior cholecystectomy. PROCEDURE INTERPRETED AT [facility] DEPARTMENT OF RADIOLOGY Final Report Signed by: Dr. Kerri Barbosa
[2017-04-29] MEDS ORDERED: TRACE ELEMENTS (5) 1 ML, MULTIVITAMIN INJ 10 ML, INSULIN REGULAR 60 UNIT in AMINO ACIDS... IV SCH (17:00)
--- NOTE | 2017-04-29 17:47 | Neurology Consult Note ---
History of Present Illness History of present illness: Patient is unable to provide me any history. History basically obtained from the chart. Ms. Miller is a 71 year old right-handed white lady who was admitted a few days ago for hypotension. The patient had recently been discharged from [facility] after being treated for sepsis and a spinal abscess. Apparently on presentation the patient was alert and cooperative and interacting but in the past few days or so the patient has become less interactive and now she is pretty much unresponsive. She had a seizure this morning characterized by generalized tonic-clonic activity. She was started on Keppra. Patient had an NG tube placed in the past 48 hours. The patient has also had a worsening acidosis with a bicarbonate level of 9. Patient also has a history of hepatitis C and is been getting Chronulac for hyperammonemia. Currently she is unresponsive and has off and on her right upper extremity jerking motion. Patient is DNR. Home Medications Medication Instructions Recorded Confirmed Type Allopurinol 300 mg PO DAILY 04/23/16 04/23/17 History Potassium Chloride 20 meq PO DAILY 10/11/16 04/23/17 History Montelukast Tab [Singulair Tab] 10 mg PO BEDTIME tablet 10/17/16 04/23/17 Rx Pantoprazole Tab [Protonix Tab] 40 mg PO DAILY tablet 10/17/16 04/23/17 Rx Metoprolol Tartrate Tab [Lopressor 0.5 tablet PO BID 12/23/16 04/23/17 History Tab] Spironolactone [Aldactone] 50 mg PO DAILY 12/23/16 04/23/17 History Apixaban [Eliquis] 5 mg PO BID 04/23/17 04/23/17 History Cefepime in Iso-Osm Dextrose 2 gm IV TID 04/23/17 04/23/17 History [Cefepime 2 gm Injection] Diltiazem Cd Cap [Cardizem CD] 120 mg PO QAM 04/23/17 04/23/17 History Furosemide Tab [Lasix Tab] 40 mg PO BID 04/23/17 04/23/17 History Insulin Glargine [Lantus] 10 unit SUBCUT QAM 04/23/17 04/23/17 History Insulin Glargine [Lantus] 50 unit SUBCUT BEDTIME 04/23/17 04/23/17 History Lactobacillus Combo No.6 1 each PO DAILY 04/23/17 04/23/17 History [Probiotic Complex] Levothyroxine Tab [Synthroid Tab] 75 mcg PO DAILY 04/23/17 04/23/17 History Allergies Allergy/AdvReac Type Severity Reaction Status Date / Time Penicillins Allergy HIVES Verified 04/23/17 10:46 sulfamethoxazole Allergy Vomiting Verified 04/23/17 10:46 [From Bactrim] trimethoprim [From Bactrim] Allergy Vomiting Verified 04/23/17 10:46 ROS unobtainable: due to mental status, due to delirium Medical,Surgical,& Family Hx - Medical History Cardio: History of: Cardiac Dysrhythmia (A-FIB) HEENT: History of: Eye Problem (GLASSES), Dental Problems (upper partial) Endocrine: History of: Diabetes Mellitus (IDDM), Thyroid Disorder Rheumatology: History of;: Rheumatoid Arthritis Respiratory: History of: Asthma Renal: History of: Renal Problems (renal insufficiency, sees Dr Damon) Gastrointestinal: History of: Hepatitis (C), Liver Problems (CIRRHOSIS) Musculoskeletal: History of: Musculoskeletal Problems ("bad knees") Hematology: History of: Anemia - Surgical History Abdominal Surgeries: Surgical HX of: Cholecystectomy, Hernia Repair Reproductive Surgeries: Surgical HX of;: Hysterectomy - Family History Family History: Reports;: Family Diabetes, Family Heart Disease, Family Hypertension - Social History Smoking Status: Never smoker Frequency of Alcohol Use: None Type of Drug Use: None Exam - Constitutional Vitals: Period Temp Pulse Resp BP Sys/Eagle Pulse Ox Last 24 Hr 98.2 F-99.2 F 63-88 17-28 84-151/48-97 93-100 Exam: GENERAL: Patient is in no acute distress. NECK: Neck is stiff. There is no JVD. No carotid bruits present. No thyroid masses. CVS: First and second heart sounds are normal. There is no S3 present. Regular rate and rhythm. RESPIRATORY: Lungs are clear to auscultation without any rales or rhonchi. ABDOMEN: Soft and non-tender. Bowel sounds are present. There is no hepatosplenomegaly. EXT: There is no palpable edema. Peripheral pulses are present. Skin: No rashes Central Nervous system: General: Unresponsive to even deep painful history Speech: None Comprehension: None Facial expressions: Normal Cranial Nerves: Pupils are sluggish but reactive. Doll's head eye movements are positive. No facial asymmetry is seen. Motor: Bulk and Tone is normal. Strength cannot be assessed Sensory: Cannot be assessed Reflexes: 1+ and symmetrical Cerebellar function: Cannot be assessed Toes: Equivocal Gait: Cannot be assessed Results - Labs CBC & BMP: 04/29/17 03:54 04/29/17 03:54 Assessment and Plan (1) New onset seizure Status: Acute Assessment and plan: Start and continue Keppra 500 mg IV every 8 EEG Current Visit: Yes (2) Encephalopathy Problem details: 04/29/2017: Patient remains unresponsive. She does not seem to recognize family members. She does not respond to verbal or tactile stimulation. She is not receiving sedative-hypnotic medications. I discontinued [place] to minimize medication effect influencing patient's unresponsive state. Patient may have a component of hepatic encephalopathy. Serum ammonia level measured 41 then 32 on 04/25/2017 and 04/27/2017 respectively. Status: Acute Assessment and plan: Likely hepatic dysfunction/cirrhosis of liver and infectious etiology. Meningeal irritation cannot be excluded entirely however the spinal tap cannot be done at this point due to Eliquis use. Patient is already on multiple antibiotic. Continue current management. Overall prognosis guarded. Current Visit: Yes
[2017-04-29] MEDS ORDERED: INSULIN REGULAR IV SCH (18:00)
[2017-04-29] MEDS ORDERED: [UNRECOGNIZED DRUG - OTHER] IV SCH (18:00)
[2017-04-29] MEDS ORDERED: TRACE ELEMENTS IV SCH (18:00)
[2017-04-29] MEDS ORDERED: MULTIVITAMIN IV SCH (18:00)
--- NOTE | 2017-04-29 18:05 | Cardiology Progress Note ---
Nick Spencer Vanessa, RN, am scribing for, and in the presence of, David Sepulveda MD 18:05. Assessment and Plan - Time spent with patient Time spent with patient: Greater than 30 minutes (1) Atrial fibrillation Status: Chronic Assessment and plan: 71-year-old white female with history of chronic atrial fibrillation, hypothyroidism, hepatitis C, cirrhosis, chronic edema, chronic venous insufficiency. She is admitted to ICU for treatment of urosepsis and has had hypotension and episode of RVR. There is question for CHF. Echo on 04/23 with preserved LV systolic function, mild pulmonary hypertension, and severe TR. April ASSESSMENT/PLAN: 1. ATRIAL FIBRILLATION - Chronic. Ventricular response controlled this AM. No further RVR overnight & was most likely related to sepsis. 2. HYPOTENSION- Improved this morning. IV vasopressor has been weaned off. Monitor closely and can reintroduce BB. 3. UTI- Appropriate IV antibiotic therapy. Infectious diseases medicine has also been following. 5. CHF- Preserved LV systolic function, severe TR per echo. Appears overall compensated at this time. Continue Lasix, spironolactone. Monitor BMP daily. 6. CHRONIC ANTICOAGULATION- Chronically anticoagulated with Eliquis. No overt S /S bleeding. 7. THROMBOCYTOPENIA- PLTs 58,000 this morning. Review of old records show this may be ongoing issue. Platelet count as low as 32,000 during hospital admission October 2016. 8. DIABETES- Continue current plan of care. Defer primary management to attending. 9. CHRONIC VENOUS INSUFFICIENCY- Venous statis ulcers of BLE's without appearance of infection. Surgical services has evaluated also & no indication for surgical intervention at this point. 10. ACUTE KIDNEY INJURY - Improved since admission with IV hydration. Creatinine & BUN 1.3/47. Monitor BMP daily. Avoiding GEOFFREY-I or ARB for fear of worsening renal function. jose alberto--04/27/17: Continue control A. fib with digoxin added. Her hypotension resolved with fluids and treatment of her infection. However, low CO2 and elevated lactate lactose lactic acid, suggest some ongoing sepsis/infection. ID is helping treat. Diastolic heart failure is being treated with medications Chronic anticoagulation/prevent a stroke, no evidence of recurrence of paraspinal abscess. April ASSESSMENT/PLAN: 1. ATRIAL FIBRILLATION-chronic. Ventricular response remains overall well controlled. Continue PO Cardizem and digoxin. Anticoagulated with Eliquis for stroke prevention. 2. HYPOTENSION-IV Levophed restarted last night for SBP 70s, MAP <60. 3. UTI-appropriate antibiotic treat per ID medicine. 4. CHF-continue current plan of care. Monitor BMP daily. 5. CHRONIC ANTICOAGULATION-continue Eliquis 5 mg PO twice daily. No overt bleeding at this time. Monitor closely. 6. THROMBOCYTOPENIA-improved today to 74,000. 7. DIABETES-continue current plan of care. Defer management to attending physician. 8. CHRONIC VENOUS INSUFFICIENCY-wound care is addressing ulcers of bilateral lower extremities. Surgical intervention is not indicated at this time. 9. ACUTE KIDNEY INJURY-this has improved since admission but creatinine trending upward again this morning to 1.6. Continue IV hydration. Follow-up BMP in AM. Avoid GEOFFREY inhibitors/ARBS and nephrotoxic agents as able. 10. HYPOKALEMIA-K+ 3.3. Continue PO supplement and repletion per PRN IV protocol. Recheck K+ in AM. 04/28/17 Holding Eliquis because some bleeding through the [place] and also hemorrhoid bleeding Has cirrhosis and multiple organ problems I conferred care with the patient's nurse. She plans to discuss with the hospitalist about comfort care. I agree with that plan Her A. fib is controlled Metabolic acidosis is slightly better Umbilical hernia finding is noted Prognosis remains guarded Replete potassium per protocol. April ASSESSMENT/PLAN: 1. ATRIAL FIBRILLATION-chronic. Ventricular response remains overall well controlled. Continue PO Cardizem and digoxin. Eliquis on hold at this time due to hematuria & hemorrhoid bleeding. 2. HYPOTENSION-IV Levophed continued, 8 mcg/min 3. UTI-culture positive for VRE. Appropriate IV atbx per ID medicine. 4. CHF-continue current plan of care, Aldactone and Lasix. Monitor BMP daily, I /O, weights. 5. CHRONIC ANTICOAGULATION- Eliquis on hold [facility] 04/28 AM due to bleeding. 6. THROMBOCYTOPENIA-stable. continues to improve and today 101,000 7. DIABETES-continue current plan of care. Defer management to attending physician. 8. CHRONIC VENOUS INSUFFICIENCY-wound care is addressing ulcers of bilateral lower extremities. Surgical intervention is not indicated at this time. 9. ACUTE KIDNEY INJURY-this has improved since admission but creatinine trending upward again this morning to 1.6. Continue IV hydration. Follow-up BMP in AM. Avoid GEOFFREY inhibitors/ARBS and nephrotoxic agents as able. 10. HYPOKALEMIA-resolved today. K+ 3.6. Continue PO supplement and repletion per PRN IV protocol. Monitor electrolytes. 11. HYPOTHYROIDISM- TSH 0.283 this admission. Synthroid supplement has been continued. Defer to attending physician. Plan/recommendation: Atrial fibrillation rate is controlled Hold the Eliquis due to hematuria and hemorrhoid bleeding On Levophed On antibiotics Potassium is now better Continue thyroid supplement Prognosis is guarded Comfort measures only Current Visit: No (2) Urinary tract infection Status: Acute Assessment and plan: SEE PLAN OF CARE LISTED ABOVE. Current Visit: Yes (3) Hypotension Status: Acute Assessment and plan: SEE PLAN OF CARE LISTED ABOVE. Current Visit: Yes (4) Chronic anticoagulation Status: Chronic Assessment and plan: SEE PLAN OF CARE LISTED ABOVE. Current Visit: Yes (5) History of spinal abscess Status: Resolved Current Visit: Yes (6) Venous stasis ulcer Status: Chronic Assessment and plan: SEE PLAN OF CARE LISTED ABOVE. Current Visit: Yes Qualifiers: Venous stasis ulcer site: calf (7) Thrombocytopenia Status: Acute Assessment and plan: SEE PLAN OF CARE LISTED ABOVE. Current Visit: No (8) Hypothyroid Status: Chronic Assessment and plan: SEE PLAN OF CARE LISTED ABOVE. Current Visit: Yes (9) Hypokalemia Status: Resolved Assessment and plan: SEE PLAN OF CARE LISTED ABOVE. Current Visit: Yes Cardiology - PN: Subj Interval history: PRIMARY PILE F[employer] KNITTER: DR. LOPEZ SUMMARY: 71 year old WF, risk factors significant for: age, obesity, diabetes. Past medical history includes chronic atrial fibrillation, hypothyroidism, hepatitis C with liver cirrhosis, chronic venous insufficiency, and asthma. Patient was admitted by hospital medicine to [facility] [facility] ICU on 04/23 with significant hypotension, altered mental status, acute kidney injury, and urosepsis after being discharged from [facility] 3 days prior after admission and treatment for reported paraspinal abscess and review of those records indicate treatment for sepsis. She was discharged from [facility] with PICC line for IV antibiotic therapy. Ulcerated wounds of bilateral lower extremities and buttock also. Urine and would culture positive for enterococcus faecalis VRE. Patient has been noted to be thrombocytopenic but PLTs have since trended upward. Chest x-ray on 04/26 showed some mild to moderate CHF. Cardiology was consulted for CHF and chronic atrial fibrillation with episode of RVR. Echo on 04/23 for normal LV size and systolic function, EF 60%, severe TR. April: No significant improvement in patient's status. Remains hypotensive and requiring IV Levophed. Current BP 108/54. Low-grade temp this morning 99.2F. She is minimally responsive, does not follow commands, and will not open eyes. She does withdrawal to tactile stimuli. No recurrence of RVR or other sustained dysrhythmia. Atrial fibrillation with controlled ventricular response and 70s. Eliquis is on hold due to some bleeding. Respirations slightly labored this morning. Hypokalemia resolved with K+ 3.6. Noted that patient's declining condition has been discussed with the family per the attending physician and CODE STATUS has now been changed to DNR status. Exam (Progress Note) - Constitutional Vitals: Period Temp Pulse Resp BP Sys/Eagle Pulse Ox Last 24 Hr 97.1 F-99.2 F 66-89 16-30 70-151/41-97 93-100 Exam: General: Present: No Apparent Distress, overweight; chronically ill HEENT: Present: Mucus Membranes Moist Neck: Present: No JVD/HJR Cardiac: Present: Irregularly Regular, Systolic Murmur. No bradycardia. Lungs: Present: Clear Ascult./Percussion. No wheeze, rhonchi. Neuro: Present: Other (Confused. Does not follow commands, open eyes, interact. Moans, and random words) Abdomen: Present: Soft, hyperactive bowel sounds, protuberant. No tenderness. Skin: Present: Other (Chronic venous stasis of BLE's. Ulcers of BLE with dry/ intact dressing). No cyanosis, diaphoresis. Extremities: Present: No Clubbing, +3 pitting edema BLE's. Result/EKG - Labs CBC & BMP: 04/29/17 03:54 04/29/17 03:54 Lab Results: I have reviewed the past 24 hour labs Labs: Laboratory Results - last 24 hr 04/27/17 04/28/17 04/28/17 09:14 08:25 10:43 WBC RBC Hgb Hct MCV MCH MCHC RDW Plt Count MPV Neut % (Auto) Lymph % (Auto) [place] % (Auto) Eos % (Auto) Baso % (Auto) Neut # (Auto) Lymph # (Auto) [place] # (Auto) Eos # (Auto) Baso # (Auto) Immature Gran % Nucleated RBC % Immature Gran # Nucleated RBCs # Platelet Estimate Giant Platelets Immature Plt Fraction Hypochromasia Macrocytosis Morphology Comment Sodium Potassium Chloride Carbon Dioxide Anion Gap BUN Creatinine GFR Calculation BUN/Creatinine Ratio Glucose POC Glucose 189 H 223 H 245 H Calculated Osmolality Calcium Phosphorus Magnesium Prealbumin Triglycerides 04/28/17 04/28/17 04/29/17 17:05 23:22 03:54 WBC RBC Hgb Hct MCV MCH MCHC RDW Plt Count MPV Neut % (Auto) Lymph % (Auto) [place] % (Auto) Eos % (Auto) Baso % (Auto) Neut # (Auto) Lymph # (Auto) [place] # (Auto) Eos # (Auto) Baso # (Auto) Immature Gran % Nucleated RBC % Immature Gran # Nucleated RBCs # Platelet Estimate Giant Platelets Immature Plt Fraction Hypochromasia Macrocytosis Morphology Comment Sodium Potassium Chloride Carbon Dioxide Anion Gap BUN Creatinine GFR Calculation BUN/Creatinine Ratio Glucose POC Glucose 221 H 273 H Calculated Osmolality Calcium Phosphorus 1.9 L Magnesium 1.9 Prealbumin 10.5 L Triglycerides 195 H 04/29/17 04/29/17 04/29/17 03:54 03:54 05:15 WBC 15.6 H D RBC 3.46 L Hgb 11.6 L Hct 35.6 L MCV 102.9 H MCH 34 MCHC 32.6 RDW 23.3 H Plt Count 101 L D MPV 10.5 Neut % (Auto) 71.5 Lymph % (Auto) 8.8 L [place] % (Auto) 15.1 H Eos % (Auto) 2.6 Baso % (Auto) 1.1 H Neut # (Auto) 11.2 H Lymph # (Auto) 1.4 [place] # (Auto) 2.4 H Eos # (Auto) 0.4 Baso # (Auto) 0.2 Immature Gran % 0.9 Nucleated RBC % 0.5 Immature Gran # 0.14 Nucleated RBCs # 0.08 Platelet Estimate Decreased Giant Platelets Few Immature Plt Fraction 0.0 Hypochromasia 1+ Macrocytosis Slight Morphology Comment Sodium 142 Potassium 3.6 Chloride 116 H Carbon Dioxide 12 L Anion Gap 17.6 H BUN 34 H Creatinine 1.90 H GFR Calculation 30 BUN/Creatinine Ratio 17.00 Glucose 256 H POC Glucose 288 H Calculated Osmolality 299.1 Calcium 8.1 L Phosphorus Magnesium 2.0 Prealbumin Triglycerides - EKG EKG results: interpreted by me, no acute changes EKG shows: atrial fibrillation Quality Measures - VTE Contraindication to Mechanical VTE Prophylaxis: Local Inflammation Coco Spencer Dale, MD, personally performed the services described in this documentation, ascribed by Hattie Romero RN in my presence, and it is both accurate and complete 805 .
[2017-04-29] MEDS ORDERED: INSULIN GLARGINE 100 UNIT/ML SUBCUT SCH (21:00)
[2017-04-29] MEDS: MONTELUKAST 10 MG TABLET PO SCH (21:43)
[2017-04-30] MEDS: INSULIN REGULAR 100 UNIT/ML SUBCUT SCH ×2 (00:17→06:07)
[2017-04-30] MEDS: ALBUTEROL/IPRATROPIUM 3 ML NEB RESP TX SCH ×4 (01:13→20:05)
[2017-04-30] MEDS: DILTIAZEM 30 MG TABLET PO SCH ×2 (02:07→08:26)
[2017-04-30] MEDS: LACTULOSE 20 GM/30 ML UDCUP PO SCH ×2 (02:07→08:26)
[2017-04-30] MEDS: CEFEPIME 2,000 MG in SODIUM CHLORIDE 0.9% 100 ML IV SCH (05:04)
[2017-04-30 05:36] LABS: Basophils # 0.1 10*3/uL (0.0-0.2); Basophils % 0.6 % (0.0-0.8); Eosinophils # 0.3 10*3/uL (0.0-0.87); Eosinophils % 1.8 % (0.00-10.9); Hematocrit 36.5 VOL% (35.7-47.0); Hemoglobin 11.7 GM/DL (12.0-16.0); Immature Granulocytes Absolute 0.18 #; Lymphocytes # 1.1 10*3/uL (1.4-4.0); Mean Corpuscular HGB Conc 32.1 GM/DL (32-36); Mean Corpuscular Hemoglobin 33 PG (27-34); Mean Corpuscular Volume 104.3 FL (87-102); Mean Platelet Volume 11.5 FL (9.6-12.0); Monocytes # 2.1 10*3/uL (0.11-0.8); Monocytes % 12.2 % (1.7-12.7); NRBC # 0.05 10*3/uL; Neutrophils # 13.7 10*3/uL (1.4-7.4); Neutrophils % 78.4 % (38.7-73.9); Red Cell Distribution Width 23.5 % (9.3-17.3); White Blood Count 17.4 T/CUMM (4-12)
[2017-04-30 05:41] LABS: Platelet Count 64 T/CUMM (130-400)
--- NOTE | 2017-04-30 07:03 | Nephrology Progress Note ---
Nephrology - PN: Subj Interval history: Patient remains nonresponsive. Physical exam general patient is chronically ill-appearing, heart is regular rate and rhythm, she has 1+ pretibial edema, lungs are clear to auscultation anteriorly, her respirations are short shallow and rapid, abdomen is soft with decreased bowel sounds, neuro patient has no interaction to verbal stimuli Assessment/plan 1. Acute renal failure-patient's chemistry is pending this morning, her urine output is decreasing she made about 750 cc of urine yesterday 2. Metabolic acidosis-we will continue acetate replacement 3. Sepsis continue IV antibiotics Exam (PN)-Nephrology - Vital Signs Vital signs: Period Temp Pulse Resp BP Sys/Eagle Pulse Ox Last 24 Hr 97.1 F-98.6 F 58-88 16-30 78-134/41-70 88-99 - Lab 04/30/17 04:50 04/29/17 03:54 Most recent lab results ABG pH 7.298 (7.35-7.45) L 04/28/17 03:15 ABG pCO2 25.8 MM HG (35-48) L 04/28/17 03:15 ABG pO2 97.7 MM HG (80-95) H 04/28/17 03:15 ABG HCO3 14.7 MMOL/L (20-26) L 04/28/17 03:15 ABG O2 Saturation 97.8 % (95-100) 04/28/17 03:15 Calcium 8.1 MG/DL (8.5-10.1) L 04/29/17 03:54 Phosphorus 1.9 MG/DL (2.5-4.9) L 04/29/17 03:54 Magnesium 2.0 MG/DL (1.8-2.4) 04/29/17 03:54 Assessment and Plan (1) Metabolic acidosis Status: Acute Assessment and plan: Patient has a non-anion gap metabolic acidosis this may be related to her renal insufficiency and liver failure, I will start her on a bicarb infusion. Current Visit: Yes (2) Dysphagia Status: Acute Current Visit: Yes (3) Hepatic encephalopathy Status: Acute Assessment and plan: Continue Chronulac Current Visit: Yes (4) History of spinal abscess Status: Resolved Current Visit: Yes (5) Renal insufficiency Status: Acute Assessment and plan: Patient's creatinine is been drifting up slightly the past couple of days, patient appears adequately volume resuscitated. Current Visit: Yes (6) Urinary tract infection Status: Acute Current Visit: Yes (7) Hypotension Status: Acute Assessment and plan: Patient is presently off pressor support Current Visit: Yes (8) Thrombocytopenia Status: Acute Current Visit: No (9) Atrial fibrillation Status: Chronic Current Visit: No (10) Anemia Status: Acute Assessment and plan: This is mild patient's hematocrit is 32% Current Visit: Yes (11) Bowel dysfunction Status: Acute Assessment and plan: On exam this patient has a mildly distended abdomen with high-pitched bowel sounds, worried that she may be developing an obstruction or ileus. I am going to check an abdominal x-ray Current Visit: Yes
[2017-04-30 07:27] LABS: Calcium 8.5 MG/DL (8.5-10.1); Magnesium 2.1 MG/DL (1.8-2.4); Osmolality,Calculated 305.3 MOS/KG (273-304)
[2017-04-30] MEDS ORDERED: INSULIN REGULAR DRIP 100 ML IV SCH (07:30)
[2017-04-30] MEDS: APIXABAN 5 MG TABLET PO SCH (08:26)
[2017-04-30] MEDS: POTASSIUM CHLORIDE 20 MEQ/15 ML UDCUP PO SCH (08:26)
[2017-04-30] MEDS: FLUCONAZOLE 200 MG TABLET PO SCH (08:26)
[2017-04-30] MEDS: LEVOTHYROXINE 75 MCG TABLET PO SCH (08:26)
[2017-04-30] MEDS: LACTOBACILLUS ACIDOPHILUS/BULGARICUS CAPLET PO SCH (08:26)
[2017-04-30] MEDS: LANSOPRAZOLE ODT 30 MG TABLET PO SCH (08:26)
[2017-04-30] MEDS: METOPROLOL TARTRATE 25 MG TABLET PO SCH (08:27)
[2017-04-30] MEDS: ALLOPURINOL 300 MG TABLET PO SCH (08:27)
[2017-04-30] MEDS: SPIRONOLACTONE 50 MG TABLET PO SCH (08:27)
[2017-04-30] MEDS: FUROSEMIDE 40 MG TABLET PO SCH (08:27)
[2017-04-30] MEDS: DESITIN 4OZ/NYSTATIN 15 GRAM MIXTURE PASTE TOP SCH ×3 (08:45→21:17)
[2017-04-30] MEDS: GENTAMICIN 0.1% CREAM 15 GM TUBE TOP SCH (08:45)
[2017-04-30] MEDS: NYSTATIN CREAM 15 GM TUBE TOP SCH ×3 (08:45→21:17)
[2017-04-30] MEDS ORDERED: INSULIN REGULAR 100 UNIT/ML IV ONE (09:26)
[2017-04-30] MEDS: INSULIN REGULAR 100 UNIT/ML IV PRN ×2 (10:49→12:15)
--- NOTE | 2017-04-30 12:17 | Infectious Disease Progress ---
Assessment and Plan (1) History of spinal abscess Status: Resolved Assessment and plan: Most likely due to Pseudomonas which was isolated from her blood cultures last mth. Continue cefepime; overall prognosis dismal and family considering withdrawing care. Current Visit: Yes (2) Hypotension Status: Acute Assessment and plan: Multifactorial, requiring vasopressor support. Blood cultures were negative. Current Visit: Yes (3) Renal insufficiency Status: Acute Assessment and plan: worsening over the past few days with decreasing urine output. Current Visit: Yes (4) Severe sepsis Status: Acute Assessment and plan: Only new infection identified is UTI due to VRE. She is on daptomycin and will be continued on cefepime for the presumed Pseudomonas spinal abscess. Overall prognosis is poor given her continued decline this week. Her and daughter were in room today and wanted an idea about her prognosis as they did not want her to suffer. I told them that I thought she was at a terminal stage and that everything we are doing is unlikely to bring her back to a meaningful existence, and that instead we may be contributing to suffering. THey says this is not what she would want and will talk to hospitalist about possibly withdrawing care. I will sign off. Current Visit: Yes (5) Venous stasis ulcer Status: Chronic Assessment and plan: Culture swabs none of these ulcers came up positive but this represents colonization rather than actual infection of these ulcers. Continue local wound care and no specific antibiotics for these wounds. Current Visit: Yes Qualifiers: Venous stasis ulcer site: calf (6) Bacteremia Status: Ruled-out Assessment and plan: Last mth had Pseudomonas septicemia. Blood cultures on this admission negative. Patient will continue cefepime for previous Pseudomonas spinal infection. Current Visit: No (7) Urinary tract infection Status: Acute Assessment and plan: Continue daptomycin for VRE, 4 more days of therapy left unless family decides to withdraw care. Current Visit: Yes Infectious Disease - PN: Subj Interval history: Patient no better, remains unresponsive. No more seizures. BP still low, and she was getting nela. Urine output suboptimal. Infectious Disease Exam (PN) - Constitutional Vitals: Temp Pulse Resp BP Pulse Ox 97.6 F 69 28 H 92/45 98 04/30/17 07:00 04/30/17 10:00 04/30/17 10:00 04/30/17 10:00 04/30/17 10:00 General appearance: over weight Exam: GEN: Unresponsive HEENT: pale mucosa RS: No crepitations or wheezes CVS: normal S1 and S2, no murmurs ABD: protuberant, soft EXTREMITIES: chronic venous stasis changes with covered ulcers Results - Labs CBC & BMP: 04/30/17 04:50 04/30/17 06:55 Lab Results: I have reviewed the past 24 hour labs Quality Measures - VTE Contraindication to Mechanical VTE Prophylaxis: Local Inflammation
[2017-04-30] MEDS ORDERED: MORPHINE 10 MG/5 ML UDCUP PO PRN (14:23)
--- NOTE | 2017-04-30 14:32 | Hospitalist Progress Note ---
Assessment and Plan - Time spent with patient Time spent with patient: Greater than 30 minutes (1) Sepsis Status: Acute Assessment and plan: April 28, 2017: 03/27/2017 blood cultures grew pseudomonas aeruginosa. Patient also had a paraspinous abscess. She was transferred to [facility] for evaluation possibly requiring neurosurgical drainage. Medical management was recommended and patient was discharged home. 3 days after that discharge patient returned to this hospital for treatment of continuing sepsis. Repeat blood cultures 2016 no growth. 04/23/2017 urine culture grew VRE. Patient is receiving daptomycin and cefepime as directed by ID talent acquisition consultant. Patient has received adequate fluid resuscitation. She continues to require IV pressor agents for blood pressure support (Currently receiving Levophed). 04/29/2017: Nursing staff reports that patient experienced 3 or 4 minutes of generalized tonic-clonic seizure activity earlier today. I added Keppra dose IV twice daily and consulted neurologist. Patient's prognosis remains poor. 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 She receives daptomycin for VRE UTI. She continues to require Levophed for blood pressure support. She also receives empiric Diflucan therapy. 04/30/2017: See above comments Current Visit: Yes Qualifiers: Qualified Code(s): A41.52 - Sepsis due to Pseudomonas (2) Encephalopathy Problem details: 04/29/2017: Patient remains unresponsive. She does not seem to recognize family members. She does not respond to verbal or tactile stimulation. She is not receiving sedative-hypnotic medications. I discontinued [place] to minimize medication effect influencing patient's unresponsive state. Patient may have a component of hepatic encephalopathy. Serum ammonia level measured 41 then 32 on 04/25/2017 and 04/27/2017 respectively. Status: Acute Assessment and plan: 04/29/2017: Patient remains unresponsive as described. Her spontaneous breathing pattern is more irregular and labored today. 04/30/2017: Family has decided to decelerate care. Patient is to enroll into a formal hospice program. All oral medications, TPN, lab draws discontinued. Remove NG tube. Continue Bonilla catheter bladder drainage and rectal tube drainage system. Current Visit: Yes (3) Ileus Problem details: 04/29/2017: NG suction as required. Patient receives TPN without enteral feedings. Repeat KUB in a.m. Status: Acute Assessment and plan: Patient has hypoactive bowel sounds and no recorded stool output for the past several days. TPN ordered by consulting ultrasound tester. Monitor for fungal infection. Patient is already receiving Diflucan empirically. 04/29/2017: Hypoactive but present bowel sounds. Abdomen remains distended but is soft. No response to deep palpation. Patient is now receiving TPN with no enteral feedings. 04/30/2017: No additional evaluation planned. Transition to comfort care see above comments. Current Visit: Yes (4) HCAP (healthcare-associated pneumonia) Status: Acute Assessment and plan: 04/28/2017: 04/27/2017 chest x-ray reported right lung base haziness with bibasilar atelectasis. Patient is unable to cough up a sputum sample. Cefepime prescribed for recent Pseudomonas aeruginosa infection and should also provide adequate coverage for suspected HCAP. Patient is unable to participate in cough and deep breathing exercises or incentive spirometry. Her immobile state increases her risk of pneumonia, pressure-point skin ulcers, and DVT complications. 04/29/2017: Labored and uneven respiratory pattern noted today. 04/27/2017 KUB changes consistent with ileus. Right nostril NG tube remains in place 04/30/2017: No additional diagnostic or therapeutic interventions recommended. Discontinue empiric antibiotic treatment. Continue low flow nasal cannula supplemental oxygen therapy. Current Visit: Yes (5) Hypothyroid Status: Chronic Assessment and plan: Patient received 75 mcg supplemental Synthroid daily. 04/25/2017 TSH measured 0.28 with free T4 1.38. Continue current Synthroid dose. Repeat labs within the next 3 months titrate Synthroid dose accordingly. 04/29/2017: Stable. Patient is receiving 75 mcg Synthroid daily. TSH and free T4 measure within normal range continue same Synthroid dose. 04/30/2017: Discontinue all enteral medications. Comfort measures only. Current Visit: Yes (6) Venous stasis ulcer with edema of lower leg Status: Acute Assessment and plan: Consulting infectious disease specialist does not believe that surface cultures of these ulcers represent true infection. Bacterial growth from swab of ulcer surface more likely represents colonization but not true infection. Continue topical wound care. Appreciate assistance from hospital wound nurse specialist. 04/29/2017: Patient has multiple skin tears that weep serosanguineous fluids over each extremity and sacrum. Superficial swab cultures represent colonization less likely true skin infection. Empiric antibiotic therapy as directed by ID talent acquisition consultant. 04/30/2017: No additional therapeutic or diagnostic interventions recommended. Current Visit: Yes (7) Diabetes mellitus type II, controlled Status: Acute Assessment and plan: TPN to begin today. Patient may require low-dose insulin addition to TPN. Continue bedside glucose monitoring with regular insulin sliding scale protocol coverage. 04/23/2017 hemoglobin A1c measured 4.7% 04/29/2017: Fair glucose control. Patient receives Lantus every morning and every afternoon. She also receives sliding scale regular insulin subcutaneously per protocol. TPN contains D10 which will likely increase required supplemental insulin dose. Continue bedside glucose checks. 04/30/2017: Intravenous insulin infusion discontinued. Subcutaneous insulin sliding scale discontinued. Bedside glucose monitoring discontinued. Current Visit: Yes (8) Paroxysmal atrial fibrillation Status: Acute Assessment and plan: Patient has intermittent rapid ventricular response related to paroxysmal atrial fibrillation. Digoxin offered to slow ventricular rate without decreasing systemic blood pressure. Because of patient's underlying hypotensive state usual beta-shirin and negative chronotropic calcium antagonist cannot be used to effectively control RVR. 04/29/2017: Ventricular rate controlled at present receiving daily IV digoxin dose. Check serum digoxin level in a.m. avoid toxicity. 04/30/2017: Telemetry monitoring discontinued. No oral or IV medications prescribed except sublingual morphine as needed for pain and/or agitation. Current Visit: Yes (9) Chronic hepatitis C with cirrhosis Status: Acute Assessment and plan: 04/29/2017: No specific treatment required at present. Patient has intermittent elevation of serum ammonia level. This may be a minor component explaining patient's metabolic encephalopathy and unresponsive state. 04/30/2017: All oral and intravenous medications discontinued except sublingual morphine and topical scopolamine. Patient is actively dying. Treatment priority is to maximize patient comfort and decrease her suffering. Current Visit: Yes (10) Chronic diastolic (congestive) heart failure Status: Acute Assessment and plan: 04/28/2017: Echocardiogram 04/23/2017 reported LVEF 60% with moderate to severe tricuspid regurgitation pulmonary artery pressure 40 mmHg. Chronic volume overload required to manage sepsis and hypotension. 04/29/2017: Anasarca related to intravascular osmotic pressures and cardiac systolic dysfunction. Volume expansion required as treatment of sepsis and hypotension. Patient still requires Levophed to maintain marginal blood pressure. 04/30/2017: Inotropic medications discontinued. IV hydration discontinued. IV antibiotic therapy discontinued. Diuretic medication dosing has been discontinued. Current Visit: Yes (11) Acute kidney injury Status: Acute Assessment and plan: 04/28/2017: BUN/creatinine 30 and 1.6 respectively today. GFR calculates 36 04/29/2017: Increasing serum BUN and creatinine levels reflect worsening renal dysfunction. GFR 30 today. Patient has intravascular volume depletion with concomitant total body fluid overload. 04/30/2017: Acute kidney injury is worsening likely related to intravascular volume depletion. Family conference completed patient's , 3 daughters, and sister agree that ICU care should be discontinued. Patient will no longer receive inotropic support, IV hydration, IV alimentation. Patient will transfer to a medical floor. She may enroll in a formal hospice program. Patient is actively dying and not expected to survive more than the next 24-48 hours. Current Visit: Yes (12) Hypokalemia Status: Resolved Assessment and plan: Supplements ordered, recheck BMP and a.m. electrolytes may be corrected by adjustments within TPN formula. 04/29/2017: Hypokalemia corrected. Patient has normal range serum magnesium level today.. Recheck electrolytes in a.m. Likely related to Lasix and spironolactone effect. 04/30/2017: No additional labs will be collected. Patient has transitioned to palliative care emphasizing symptom management. She may enroll in a formal inpatient hospice program. Current Visit: Yes (13) Thrombocytopenia Status: Acute Assessment and plan: 04/28/2017: Patient is not receiving heparin products for DVT prophylaxis. She receives systemic anticoagulation with Eliquis daily dose. 04/29/2017: Platelet count increased today compared with yesterday 101,000 versus 74,000 respectively. Recheck CBC in a.m. Patient also receives Eliquis. Monitor for spontaneous bleeding and hemodynamic stability. 04/30/2017: No additional labs will be collected. Patient has transitioned to palliative care emphasizing symptom management. She may enroll in a formal inpatient hospice program. Current Visit: No (14) [place]is[place]oria Status: Acute Assessment and plan: 04/28/2017: I am uncertain how long patient's pupil diameter has been asymmetric. Today her left pupil measures approximately 5 mm while her right pupil is smaller at approximately [address] considered but results would not like alter current management. Continue monitoring neuro exam. 04/29/2017: Pupil size discrepancy not as prominent today. Head CT not ordered. Patient's clinical status is declining and CT results would not likely alter current treatment options. 04/30/2017: Palliative care focus. No additional labs, x-rays, or CT scans to be ordered. Current Visit: Yes Hospitalist: Subjective Interval history: 04/30/2017: Patient remains unresponsive. Family conference held with 3 of patient's daughters, , and sister. They have elected to decelerate care comfort measures only. Patient will be transferred from the ICU. Hopefully she can enroll in a formal hospice program. Discontinue all medications. Remove NG tube. Continue Bonilla catheter and rectal tube drainage. Add Roxanol sublingual morphine. Add low flow nasal cannula supplemental oxygen therapy. Add topical scopolamine to try a excess respiratory secretions. Discontinue labs and bedside glucose. Discontinue IV insulin drip. Discontinue TPN. Patient is not expected to survive more than 24-48 hours. Treatment focus is comfort care. Exam - Constitutional Vitals: Period Temp Pulse Resp BP Sys/Eagle Pulse Ox Last 24 Hr 97.1 F-98.2 F 58-79 16-30 78-125/41-69 88-99 General appearance: normal weight - Head Head exam: Present: normal inspection - Neck Neck exam: Absent: meningismus, tenderness - Respiratory Respiratory exam: Present: decreased breath sounds. Absent: rhonchi, wheezes - Cardiovascular Cardiovascular exam: Present: regular rate and rhythm - GI/Abdominal GI/Abdominal exam: Present: distended, soft. Absent: tenderness, rebound - Extremities Exam Extremities exam: Present: edema - Neurological Exam Neurological exam: Present: other (Somnolent; unresponsive) - Skin Skin exam: Present: other (Venous stasis dermatitis changes both lower legs) Results - Labs CBC & BMP: 04/30/17 04:50 04/30/17 06:55 Quality Measures - VTE Contraindication to Mechanical VTE Prophylaxis: Local Inflammation
--- NOTE | 2017-04-30 14:47 | Neurology Progress Note ---
Neurology - PN : Subjective Interval history: Patient continued to remain same. Unresponsive. Family has decided to make her DNR and comfort measures only. Exam (Progress Note) - Constitutional Vitals: Period Temp Pulse Resp BP Sys/Eagle Pulse Ox Last 24 Hr 97.1 F-98.2 F 58-79 16-30 78-125/41-69 88-99 Exam: GENERAL: Patient is in no acute distress. NECK: Neck is stiff. There is no JVD. No carotid bruits present. No thyroid masses. CVS: First and second heart sounds are normal. There is no S3 present. Regular rate and rhythm. RESPIRATORY: Lungs are clear to auscultation without any rales or rhonchi. ABDOMEN: Soft and non-tender. Bowel sounds are present. There is no hepatosplenomegaly. EXT: There is no palpable edema. Peripheral pulses are present. Skin: No rashes Central Nervous system: General: Unresponsive to even deep painful history Speech: None Comprehension: None Facial expressions: Normal Cranial Nerves: Pupils are sluggish but reactive. Doll's head eye movements are positive. No facial asymmetry is seen. Motor: Bulk and Tone is normal. Strength cannot be assessed Sensory: Cannot be assessed Reflexes: 1+ and symmetrical Cerebellar function: Cannot be assessed Toes: Equivocal Gait: Cannot be assessed Results - Labs CBC & BMP: 04/30/17 04:50 04/30/17 06:55 Assessment and Plan (1) New onset seizure Status: Acute Assessment and plan: Family wants comfort measures only Current Visit: Yes (2) Encephalopathy Problem details: 04/29/2017: Patient remains unresponsive. She does not seem to recognize family members. She does not respond to verbal or tactile stimulation. She is not receiving sedative-hypnotic medications. I discontinued [place] to minimize medication effect influencing patient's unresponsive state. Patient may have a component of hepatic encephalopathy. Serum ammonia level measured 41 then 32 on 04/25/2017 and 04/27/2017 respectively. Status: Acute Assessment and plan: Continue comfort measures only. Sign off please call as needed Current Visit: Yes Quality Measures - VTE Contraindication to Mechanical VTE Prophylaxis: Local Inflammation
[2017-04-30] MEDS: FAT EMULSION 20% 250 ML IV SCH (14:52)
[2017-04-30] MEDS: DIGOXIN 0.25 MG TABLET PO SCH (14:52)
[2017-04-30] MEDS: MORPHINE 2 MG/1 ML SYRINGE IV PRN ×4 (17:14→23:15)
--- NOTE | 2017-04-30 22:05 | Cardiology Progress Note ---
Nick Spencer Vanessa, RN, am scribing for, and in the presence of, David Sepulveda MD 22:03. Assessment and Plan - Time spent with patient Time spent with patient: Greater than 30 minutes (1) Atrial fibrillation Status: Chronic Assessment and plan: 71-year-old white female with history of chronic atrial fibrillation, hypothyroidism, hepatitis C, cirrhosis, chronic edema, chronic venous insufficiency. She is admitted to ICU for treatment of urosepsis and has had hypotension and episode of RVR. There is question for CHF. Echo on 04/23 with preserved LV systolic function, mild pulmonary hypertension, and severe TR. April ASSESSMENT/PLAN: 1. ATRIAL FIBRILLATION - Chronic. Ventricular response controlled this AM. No further RVR overnight & was most likely related to sepsis. 2. HYPOTENSION- Improved this morning. IV vasopressor has been weaned off. Monitor closely and can reintroduce BB. 3. UTI- Appropriate IV antibiotic therapy. Infectious diseases medicine has also been following. 5. CHF- Preserved LV systolic function, severe TR per echo. Appears overall compensated at this time. Continue Lasix, spironolactone. Monitor BMP daily. 6. CHRONIC ANTICOAGULATION- Chronically anticoagulated with Eliquis. No overt S /S bleeding. 7. THROMBOCYTOPENIA- PLTs 58,000 this morning. Review of old records show this may be ongoing issue. Platelet count as low as 32,000 during hospital admission October 2016. 8. DIABETES- Continue current plan of care. Defer primary management to attending. 9. CHRONIC VENOUS INSUFFICIENCY- Venous statis ulcers of BLE's without appearance of infection. Surgical services has evaluated also & no indication for surgical intervention at this point. 10. ACUTE KIDNEY INJURY - Improved since admission with IV hydration. Creatinine & BUN 1.3/47. Monitor BMP daily. Avoiding GEOFFREY-I or ARB for fear of worsening renal function. jose alberto--04/27/17: Continue control A. fib with digoxin added. Her hypotension resolved with fluids and treatment of her infection. However, low CO2 and elevated lactate lactose lactic acid, suggest some ongoing sepsis/infection. ID is helping treat. Diastolic heart failure is being treated with medications Chronic anticoagulation/prevent a stroke, no evidence of recurrence of paraspinal abscess. April ASSESSMENT/PLAN: 1. ATRIAL FIBRILLATION-chronic. Ventricular response remains overall well controlled. Continue PO Cardizem and digoxin. Anticoagulated with Eliquis for stroke prevention. 2. HYPOTENSION-IV Levophed restarted last night for SBP 70s, MAP <60. 3. UTI-appropriate antibiotic treat per ID medicine. 4. CHF-continue current plan of care. Monitor BMP daily. 5. CHRONIC ANTICOAGULATION-continue Eliquis 5 mg PO twice daily. No overt bleeding at this time. Monitor closely. 6. THROMBOCYTOPENIA-improved today to 74,000. 7. DIABETES-continue current plan of care. Defer management to attending physician. 8. CHRONIC VENOUS INSUFFICIENCY-wound care is addressing ulcers of bilateral lower extremities. Surgical intervention is not indicated at this time. 9. ACUTE KIDNEY INJURY-this has improved since admission but creatinine trending upward again this morning to 1.6. Continue IV hydration. Follow-up BMP in AM. Avoid GEOFFREY inhibitors/ARBS and nephrotoxic agents as able. 10. HYPOKALEMIA-K+ 3.3. Continue PO supplement and repletion per PRN IV protocol. Recheck K+ in AM. 04/28/17 Holding Eliquis because some bleeding through the [place] and also hemorrhoid bleeding Has cirrhosis and multiple organ problems I conferred care with the patient's nurse. She plans to discuss with the hospitalist about comfort care. I agree with that plan Her A. fib is controlled Metabolic acidosis is slightly better Umbilical hernia finding is noted Prognosis remains guarded Replete potassium per protocol. April ASSESSMENT/PLAN: 1. ATRIAL FIBRILLATION-chronic. Ventricular response remains overall well controlled. Continue PO Cardizem and digoxin. Eliquis on hold at this time due to hematuria & hemorrhoid bleeding. 2. HYPOTENSION-IV Levophed continued, 8 mcg/min 3. UTI-culture positive for VRE. Appropriate IV atbx per ID medicine. 4. CHF-continue current plan of care, Aldactone and Lasix. Monitor BMP daily, I /O, weights. 5. CHRONIC ANTICOAGULATION- Eliquis on hold [facility] 04/28 AM due to bleeding. 6. THROMBOCYTOPENIA-stable. continues to improve and today 101,000 7. DIABETES-continue current plan of care. Defer management to attending physician. 8. CHRONIC VENOUS INSUFFICIENCY-wound care is addressing ulcers of bilateral lower extremities. Surgical intervention is not indicated at this time. 9. ACUTE KIDNEY INJURY-this has improved since admission but creatinine trending upward again this morning to 1.6. Continue IV hydration. Follow-up BMP in AM. Avoid GEOFFREY inhibitors/ARBS and nephrotoxic agents as able. 10. HYPOKALEMIA-resolved today. K+ 3.6. Continue PO supplement and repletion per PRN IV protocol. Monitor electrolytes. 11. HYPOTHYROIDISM- TSH 0.283 this admission. Synthroid supplement has been continued. Defer to attending physician. Plan/recommendation: Atrial fibrillation rate is controlled Hold the Eliquis due to hematuria and hemorrhoid bleeding On Levophed On antibiotics Potassium is now better Continue thyroid supplement Prognosis is guarded Comfort measures only April ASSESSMENT/PLAN: 1. ATRIAL FIBRILLATION-chronic. stable with controlled ventricular response. Continue PO Cardizem and digoxin. Eliquis on hold at this time due to hematuria & hemorrhoid bleeding. 2. HYPOTENSION-continues to require IV Levophed, 8 mcg/min 3. UTI-culture positive for VRE. Appropriate IV atbx per ID medicine. 4. CHF-continue current plan of care, Aldactone and Lasix. Monitor BMP daily, I /O, weights. 5. CHRONIC ANTICOAGULATION- Eliquis on hold [facility] 8 AM due to bleeding. 6. THROMBOCYTOPENIA-stable. continues to improve and today 101,000 7. DIABETES-continue current plan of care. Defer management to attending physician. 8. CHRONIC VENOUS INSUFFICIENCY-wound care is addressing ulcers of bilateral lower extremities. Surgical intervention is not indicated at this time. 9. ACUTE KIDNEY INJURY-this has improved since admission but creatinine now trending upward, currently 2.2. Continue IV hydration. Follow-up BMP in AM. Avoid GEOFFREY inhibitors/ARBS and nephrotoxic agents as able. 10. HYPOKALEMIA-no further hypokalemia. K+ 3.6. Continue PO supplement and repletion per PRN IV protocol. Monitor electrolytes. 11. HYPOTHYROIDISM- TSH 0.283 this admission. Synthroid supplement has been continued. Defer to attending physician. Plan/recommendation: out of the ICU No active intervention at this point Comfort measures only Prognosis is guarded Current Visit: No Qualifiers: Atrial fibrillation type: chronic Qualified Code(s): I48.2 - Chronic atrial fibrillation (2) Urinary tract infection Status: Acute Assessment and plan: SEE PLAN OF CARE LISTED ABOVE. Current Visit: Yes (3) Hypotension Status: Acute Assessment and plan: SEE PLAN OF CARE LISTED ABOVE. Current Visit: Yes (4) Chronic anticoagulation Status: Chronic Assessment and plan: SEE PLAN OF CARE LISTED ABOVE. Current Visit: Yes (5) History of spinal abscess Status: Resolved Current Visit: Yes (6) Venous stasis ulcer Status: Chronic Assessment and plan: SEE PLAN OF CARE LISTED ABOVE. Current Visit: Yes Qualifiers: Venous stasis ulcer site: calf (7) Thrombocytopenia Status: Acute Assessment and plan: SEE PLAN OF CARE LISTED ABOVE. Current Visit: No (8) Hypothyroid Status: Chronic Assessment and plan: SEE PLAN OF CARE LISTED ABOVE. Current Visit: Yes (9) Hypokalemia Status: Resolved Assessment and plan: SEE PLAN OF CARE LISTED ABOVE. 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 LOPEZ SUMMARY: 71 year old WF, risk factors significant for: age, obesity, diabetes. Past medical history includes chronic atrial fibrillation, hypothyroidism, hepatitis C with liver cirrhosis, chronic venous insufficiency, and asthma. Patient was admitted by [facility] to [facility] on 04/23 with significant hypotension, altered mental status, acute kidney injury, and urosepsis after being discharged from [facility] 3 days prior after admission and treatment for reported paraspinal abscess and review of those records indicate treatment for sepsis. She was discharged from [facility] with PICC line for IV antibiotic therapy. Ulcerated wounds of bilateral lower extremities and buttock also. Urine and would culture positive for enterococcus faecalis VRE. Patient has been noted to be thrombocytopenic but PLTs have since trended upward. Chest x-ray on 04/26 showed some mild to moderate CHF. Cardiology was consulted for CHF and chronic atrial fibrillation with episode of RVR. Echo on 04/23 for normal LV size and systolic function, EF 60%, severe TR. April: Ms. Miller remains in ICU this morning. Continues to require IV vasopressor for BP support, current BP 98/60. She remains unresponsive to verbal/tactile stimuli. Patient had seizure activity yesterday, and she has since been evaluated by Dr. Malcolm. Be maintained with IV Keppra. Atrial fib controlled ventricular response per cardiac rn without recurrence of RVR or other dysrhythmia. WBC trending upward 17,400 today. Electrolytes within acceptable range. Creatinine trending upward 2.2 today. Exam (Progress Note) - Constitutional Vitals: Period Temp Pulse Resp BP Sys/Eagle Pulse Ox Last 24 Hr 97.1 F-98.6 F 58-88 16-30 78-129/41-70 88-99 Exam: General: Present: No Apparent Distress, overweight; chronically ill HEENT: Present: Mucus Membranes Moist Neck: Present: No JVD/HJR Cardiac: Present: Irregularly Regular, Systolic Murmur. No bradycardia. Lungs: Present: Clear Ascult./Percussion. No wheeze, rhonchi. Resp labored. Neuro: Present: Other (Confused. Does not follow commands, open eyes, interact. Moans, and random words) Abdomen: Present: Soft, hyperactive bowel sounds, protuberant. No tenderness. Skin: Present: Other (Chronic venous stasis of BLE's. Ulcers of BLE with dry/ intact dressing). No cyanosis, diaphoresis. Extremities: Present: No Clubbing, +1-2+ pitting edema BLE's. Result/EKG - Labs CBC & BMP: 04/30/17 04:50 04/30/17 06:55 Lab Results: I have reviewed the past 24 hour labs Labs: Laboratory Results - last 24 hr 04/29/17 04/29/17 04/29/17 11:11 17:47 21:21 WBC RBC Hgb Hct MCV MCH MCHC RDW Plt Count MPV Neut % (Auto) Lymph % (Auto) Rabun % (Auto) Eos % (Auto) Baso % (Auto) Neut # (Auto) Lymph # (Auto) Rabun # (Auto) Eos # (Auto) Baso # (Auto) Immature Gran % Nucleated RBC % Immature Gran # Nucleated RBCs # Immature Plt Fraction Sodium Potassium Chloride Carbon Dioxide Anion Gap BUN Creatinine GFR Calculation BUN/Creatinine Ratio Glucose POC Glucose 370 H 298 H 393 H Calculated Osmolality Calcium Magnesium TSH 3rd Generation 04/29/17 04/30/17 04/30/17 23:14 04:50 06:01 WBC 17.4 H RBC 3.50 L Hgb 11.7 L Hct 36.5 MCV 104.3 H MCH 33 MCHC 32.1 RDW 23.5 H Plt Count 64 L D MPV 11.5 Neut % (Auto) 78.4 H Lymph % (Auto) 6.0 L Rabun % (Auto) 12.2 Eos % (Auto) 1.8 Baso % (Auto) 0.6 Neut # (Auto) 13.7 H Lymph # (Auto) 1.1 L Rabun # (Auto) 2.1 H Eos # (Auto) 0.3 Baso # (Auto) 0.1 Immature Gran % 1.0 Nucleated RBC % 0.3 Immature Gran # 0.18 Nucleated RBCs # 0.05 Immature Plt Fraction 0.0 Sodium Potassium Chloride Carbon Dioxide Anion Gap BUN Creatinine GFR Calculation BUN/Creatinine Ratio Glucose POC Glucose 305 H 338 H Calculated Osmolality Calcium Magnesium TSH 3rd Generation 04/30/17 04/30/17 06:55 06:55 WBC RBC Hgb Hct MCV MCH MCHC RDW Plt Count MPV Neut % (Auto) Lymph % (Auto) Rabun % (Auto) Eos % (Auto) Baso % (Auto) Neut # (Auto) Lymph # (Auto) Rabun # (Auto) Eos # (Auto) Baso # (Auto) Immature Gran % Nucleated RBC % Immature Gran # Nucleated RBCs # Immature Plt Fraction Sodium 141 Potassium 4.0 Chloride 115 H Carbon Dioxide 18 L Anion Gap 12.0 BUN 48 H Creatinine 2.20 H GFR Calculation 26 BUN/Creatinine Ratio 21.00 H Glucose 315 H POC Glucose Calculated Osmolality 305.3 H Calcium 8.5 Magnesium 2.1 TSH 3rd Generation 0.250 L - EKG EKG results: interpreted by me, no acute changes EKG shows: atrial fibrillation Quality Measures - VTE Contraindication to Mechanical VTE Prophylaxis: Local Inflammation ICoco Dale, MD, personally performed the services described in this documentation, ascribed by Hattie Romero RN in my presence, and it is both accurate and complete .
[2017-05-01] MEDS: ALBUTEROL/IPRATROPIUM 3 ML NEB RESP TX SCH ×3 (01:05→13:18)
[2017-05-01] MEDS: MORPHINE 2 MG/1 ML SYRINGE IV PRN ×4 (01:28→08:33)
[2017-05-01] MEDS: DESITIN 4OZ/NYSTATIN 15 GRAM MIXTURE PASTE TOP SCH ×2 (06:15→08:34)
[2017-05-01] MEDS: NYSTATIN CREAM 15 GM TUBE TOP SCH (08:34)
[2017-05-01 08:39] VITALS: BP 38/20
--- NOTE | 2017-05-02 22:26 | Electroencephalogram ---
HISTORY: A 61-year-old patient with a history of seizures. INTRODUCTION: A digital EEG was performed using the standard 10/20 system of electrode placement wit h one channel of EKG monitoring. Photic stimulation was performed. DESCRIPTION OF RECORD: The background is very disorganized, consists of 6 to 7 Hz moderate amplitude bilateral symmetrical rhythm. Photic stimulation does not elicit driving response. There no focal, sharp wave, spike, or wave activity seen. Heart rate is 65 beats per minute. IMPRESSION: ABNORMAL EEG DUE TO GENERALIZED SLOWING. 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 No epileptiform/seizure activity seen. Clinical correlation suggested.
[2017-05-03] MEDS ORDERED: SCOPOLAMINE 1.5 MG PATCH TRANSDERM SCH (09:00)
== END 2017-05-01 10:57 | disposition expired | DRG 871 ==
LOC: EDUNIT# → N.ED 10:30 → N.EDINP 13:23 → SUATTDRO 13:23 → N.ICU 14:20 → N.2E 04-30 16:37
PROVIDERS: ATTEND Internal Medicine